=== PATIENT | female | born 1955 | race Caucasian/White ===

== ENCOUNTER → 2018-05-24 15:38 | Outpatient (CLI) | payer OTHER, SELFPAY ==
--- NOTE | 2018-05-24 09:30 | MISC_PTH ---
PATIENT: BRITTANY MANDUJANO LOC: [facility] U#:[id number] AGE/SX: 70/F ROOM: RE05/24/[address]: Dr. Lavelle Oropeza MD : [id number] BED: DIS: SPEC #: [id number] RECD: 05/24/18 15:35 STATUS: MAYNOR RAFIQ #: [id number] JOSESITO: 05/24/18 09:[address]: Lavelel Oropeza DEPT: SURGICAL PATHOLOGY RECD BY: Rickey Davey ENTERED: 05/25/18 07:41 SP TYPE: MISC OTHR DR: Dr. Suha Valle MD Tissues: Oral cavity, NOS Procedures: Surgery Specimen Level IV HEADER OPERATION: Incisional biopsy PRE-OP DIAGNOSIS: Evaluate for Crohn's TISSUE SUBMITTED: Oral mucositis, permanent pathology MICROSCOPIC DIAGNOSIS Oral mucosa, biopsy: Ulceration, granulation and associated acute and chronic inflammation. Negative for acid-fast bacilli and fungal organisms. AM:jimbo 05/28/18 COMMENT The biopsy contains a small fragment of benign squamous mucosa with reactive change with associated ulceration and granulation with acute and chronic inflammation. No granulomas are identified. No lymphoid aggregates are present. Clinical correlation is suggested. Case has been reviewed in consultation with Dr. Grijalva who concurs with the above diagnosis. IDC:AMOS MICROSCOPIC DESCRIPTION Slides are reviewed. GROSS DESCRIPTION Received in fixative is one container labeled with the patient's name and designated oral biopsy. The specimen consists of a piece of marcial mucosal tissue measuring 0.3 x 0.1 x 0.1 cm. The specimen is totally submitted in one cassette. / AMOS:jimbo 05/25/18 TC:2 CPT: 85665
== END ==
PROVIDERS: Family Provider Internal Medicine; PCP Internal Medicine; Referring Provider Otolaryngology; Visit Provider Otolaryngology
DX: K12.30 Oral mucositis (ulcerative), unspecified (principal)
CPT/HCPCS: 88305

== ENCOUNTER 2018-08-05 22:35 | Emergency (ER) | payer OTHER, SELFPAY ==
[2018-08-05 22:35] VITALS: BP 199/109; PULSE 97; RESP 16; TEMP 36.3; O2SAT 99; BMI 24.0
[2018-08-05] MEDS: Ondansetron 4 MG/2 ML Vial IV (23:04)
[2018-08-05] MEDS: Morphine 4 MG/ML Syringe IV (23:04)
[2018-08-05 23:24] LABS: Red Blood Cells-Urine 0 SEEN /hpf (0-5)
[2018-08-05 23:31] LABS: Color, Urine Yellow (Yellow); Glucose, Dipstick Normal (Normal); Ketone-Dipstick 5 mg/dl (Negative); Leukocyte Esterase-Dipstick Negative /ul (Negative); Nitrite-Dipstick Negative (Negative); Occult Blood-Urine Negative /ul (Negative); Protein-Dipstick Negative (Negative); Urine Bilirubin Dipstick Negative (Negative); Urine Clarity Clear (Clear); Urine Urobilinogen Normal (Normal); Urine pH 6.5 (5.0 - 8.0)
[2018-08-05 23:34] LABS: Absolute Lymphocyte Count 1.98 X10^3/ul (0.83-4.51); Absolute Neutrophil Count 10.1 X10^3/uL (2.0-7.7); Basophil# 0.04 X10^3/uL; Basophil% 0.3 % (0-1); Eosinophil# 0.11 X10^3/uL; Eosinophils% 0.8 % (0-5); Hematocrit 42.6 % (37-47); Hemoglobin 13.6 g/dl (12.0-15.0); Lymphocyte # 1.98 X10^3/ul (4.0); Lymphocyte % 14.4 % (19-41); Mean Corp Hgb Conc 31.9 g/gl (32-36); Mean Corpuscular Volume 90.8 fL (81-99); Mean Platelet Vol. 9.5 fl (6.2-12.0); Monocyte% 10.2 % (0-10); Neutrophil # 10.14 X10^3/uL (2.7-7.7); POSITIVE COUNT NO; POSITIVE DIFFERENTIAL NO; POSITIVE MORPHOLOGY NO; Platelet Count 396 K/mm3 (150-450); RBC Distribution Width SD 46.2 fl (35.1-43.9); Red Blood Count 4.69 M/mm3 (4.2-5.4); White Blood Count 13.7 K/mm3 (4.4-11.0)
[2018-08-05 23:39] LABS: Bacteria RARE /hpf (None Seen); Mucous, Urine 1+ /hpf (<or=2+); Squamous Epithelial Cells - UA 0-5 SEEN /hpf (5-10); White Blood Cells 0-5 SEEN /hpf (0-5)
[2018-08-05 23:41] LABS: Anion Gap 8 (5-15); BUN 9 mg/dL (7-18); BUN/Creat Ratio 12.4 RATIO (10-20); Calcium,Total 9.6 mg/dL (8.5-10.1); Chloride 101 mmol/L (98-107); Creatinine, Serum 0.72 mg/dL (0.55-1.02); EST Glomerular Filtration Rate 87 mL/min (>60); Est Glom Filt Rate - Afr Amer 105 mL/min (>60); Estimated Creatinine Clearance 58.19 ml/min; Glucose 131 mg/dL (74-106); Potassium 3.4 mmol/L (3.5-5.1); Sodium Level 135 mmol/L (136-145)
--- NOTE | 2018-08-06 01:27 | ED.VISSUMM ---
- ER Visit Summary Date of Service: 08/06/18 Chief Complaint: Abdominal pain History of Present Illness: The patient is a 63 F who presents with abdominal pain. It is been present for about 2 days. She states that severe. It is dull in character. It is located in the left lower quadrant. No history of prior similar symptoms. It was worse tonight than it has been over the last couple of days so she presented here. She does report some associated loose stools. No nausea or vomiting. No fevers. Physical Examination: Initial blood pressure 199/109 vitals of unremarkable Moist mucous membranes Heart regular rate and rhythm Lungs clear Abdomen soft nontender nondistended she actually states it feels a little bit better when I push on her left lower quadrant Test Results: Labs notable for white blood cell count 13.7 otherwise unremarkable. Urinalysis normal. CT of the abdomen and pelvis shows diverticulosis and postsurgical changes there is some wall thickening of the transverse colon and possible colitis. Emergency Department Course and Treatment: Patient was treated here with IV fluids morphine and Zofran. She is improved on reevaluation. Given her report of loose stools leukocytosis and wall thickening I do suspect this is related to infectious colitis and we will treat with Cipro and Flagyl. Given lack of fevers or vomiting and the fact that her pain is currently controlled I do believe she can treated as an outpatient. She understands to return for new or worsening symptoms. Patient discharged home. She is concerned about if her pain returned so she was given a prescription for short course of [place]. Treatment Plan: [] Disposition: Discharge Impression: Colitis This note was generated with [employer] dictation software. It may contain incorrect words, spelling, and punctuation that were not noted in review of the chart prior to signing ED Disposition - Plan for ED Patient: Chief Complaint: Abd Pain Referrals: Suha Valle MD [Primary Care Provider] -
--- NOTE | 2018-08-06 01:29 | ED.DEP ---
ED Disposition - Plan for ED Patient: Chief Complaint: Abd Pain Instructions: ED Gastroenteritis Bacterial Prescriptions: Hydrocodone Bitart/Apap 5-325 [[place] 5MG-325MG] 1 tab PO Q6H PRN PRN 3 Days #10 tab PRN Reason: Pain Metronidazole [Flagyl] 500 mg PO Q8H #21 tab Ciprofloxacin [Cipro] 500 mg PO BID #14 tab Referrals: Suha Valle MD [Primary Care Provider] -
[2018-08-06 01:37] VITALS: BP 180/101; PULSE 100; RESP 18; O2SAT 100
--- NOTE | 2018-08-06 22:51 | CT_ITS ---
STUDY: CT ABDOMEN AND PELVIS WITH CONTRAST REASON FOR EXAM: Female, 63 years old. Left lower quadrant pain. Lower back pain. Elevated white blood count. RADIATION DOSAGE (If Supplied By Facility): CTDIvol = ( 7.40 ) mGy, DLP = ( 387.21 ) mGycm TECHNIQUE: Transaxial images were obtained from the dome of the diaphragm to the symphysis pubis without oral contrast. 100ML ml of Isovue 300 contrast was administered. Sagittal and coronal images were reconstructed. Individualized dose optimization techniques were used for this CT. COMPARISON: None. FINDINGS: The visualized lung bases are unremarkable. The visualized portions of the heart are within normal limits. There is a hemangioma in segment #4 measures 2 cm. There is a cyst in segment #2 measures 1 cm. Normal gallbladder and extrahepatic biliary system. Normal spleen. Normal pancreas. Normal bilateral adrenal glands. Bilateral kidney stones are noted the largest measures 7 mm is in the left kidney. There is no hydronephrosis. Bilateral renal cysts are noted the largest measures 5 mm is in the right kidney. Normal visualized stomach. Normal small intestine. There are multiple colonic diverticula consistent with diverticulosis. Postsurgical changes are noted in the transverse colon. There is thickening of the samaniego of the transverse colon near the anastomosis site may represent colitis. There is non-visualization of the appendix. Normal abdominal aorta. Normal inferior vena cava. Normal retroperitoneum. Normal urinary bladder. There is a small anterior abdominal wall hernia superior to the umbilicus containing fat. There are advanced diffuse degenerative changes of the visualized lumbar spine with dextroscoliosis. There is an old compression fracture of T12. CT/Abdomen/Pelvis WITH Contrast IMPRESSION: Postsurgical changes are noted in the transverse colon. There is thickening of the samaniego of the transverse colon near the anastomosis site may represent colitis. Bilateral kidney stones are noted the largest measures 7 mm is in the left kidney. There is no hydronephrosis. Electronically Signed: Nirmala Tariq MD at 1:09 EST Tel , Service support ,
--- OUTSIDE RECORDS SUMMARY | 2018-11-07 14:10 | XMS RPT_ITS ---
:1955 Author Organization OHIP Care Team Providers Name Role Phone BRY RIOS D Referring Unavailable TALAMPAS, RIOS D Attending Unavailable TALAMPAS, RIOS D Attending Unavailable RUTTI, ZINA ([facility]) Attending Unavailable PODLOGARTRINA ([facility]) Attending Unavailable TALAMPAS, RIOS D Referring Unavailable OLDER, JOSIE (COMMERCIAL ESTIMATOR) Attending Unavailable TODDDARIEL SANTACRUZ (COMMERCIAL ESTIMATOR) Attending Unavailable TALAMPAS, RIOS D Attending Unavailable RUTTIHUAZINA (COMMERCIAL ESTIMATOR) Attending Unavailable RUTMATHIEU, ZINA (COMMERCIAL ESTIMATOR) Referring Unavailable TALAMPAS, RIOS D Referring Unavailable RUTTI, ZINA (COMMERCIAL ESTIMATOR) Referring Unavailable RUTTI, ZINA (COMMERCIAL ESTIMATOR) Referring Unavailable TALAMPAS, RIOS D Attending Unavailable ELIAZAR MARK ([facility]) Attending Unavailable TALAMPAS, RIOS D Referring Unavailable Talampas, Rios Primary Care Unavailable Thai Mcnair Attending Unavailable Lavelle Oropeza Attending Unavailable Lavelle Oropeza Referring Unavailable Talampas, Rios Primary Care Unavailable PROBLEMS PROBLEMS DATE TYPE CONDITION / CODE ATTENDING STATUS SOURCE 09/05/2018 Active Unknown / NA Active [facility] UNK(Unknown) [facility] [place] Repository 08/06/2018 Unknown K52.9 - Noninfective Thai Mcnair Active [place] [facility] colitis, unspecified Hospital / K52.9(ICD-10) Repository 06/19/2018 Active Iron deficiency / NA Active [facility] E61.1(ICD-10) [facility] [place] Repository 05/21/2018 Active Abnormal levels of NA Active [facility] other serum enzymes / [facility] Main R74.8(ICD-10) [place] Repository 05/16/2018 Active Encounter for NA Active [facility] screening mammogram [facility] for malignant [place] neoplasm of breast / Repository Z12.31(ICD-10) 05/03/2018 Active Recurrent oral NA Active [facility] aphthae / Clinic Main K12.0(ICD-10) [place] Repository 10/12/2017 Active Iron deficiency NA Active [facility] anemia, unspecified / Clinic Main D50.9(ICD-10) [place] Repository 10/12/2017 Active Other group home NA Active [facility] (current) drug Clinic Main therapy / [place] Z79.899(ICD-10) Repository PROCEDURES PROCEDURES No Procedure Records FoundRESULTS RESULTS PROGRESS Observed: 09/05/2018 Status: COMPLETED Source: [place] 3:31 PM [facility] REPOSITORY HNO ID: [id number] Author: Cony Beltran LPN Service: (none) Author Type: (none) Type: Progress Notes Filed: 09/05/2018 3:48 PM Note Text: Manual Readin/88 Pulse: 74 BP Eric average: 132/75 P :77 Repeat BP Check: 143/80 P76 #1 129/79 P76 #2 134/73 P76 #3 130/74 P77 #4 134/76 P77 #5 131/75 P78 #6 Reason for blood pressure check - Medication adjustment Patient is: Taking medication as prescribed Yes Took medication today Yes If no, date medication last taken N/A Experiencing side effects No Per TE on 08/20/2018, Lisinopril was d/c at that time and she was placed on Coreg 3.125mg twice daily d/t mouth sores. States that sores have not improved. Does have appt with Dermatology 09/12/2018. Denies any chest pain, shortness of breath, dizziness, or headaches. Daily caffeine use. Past personal history of tobacco use; no current exposure. Alert and oriented. Pt has been identified by name and birthdate: Yes Allergies reviewed: Yes Latex allergy: no. Medication - prescribed and OTC reviewed and updated: Yes Do you need any prescription refills prior to your next visit: No Health Maintenance: Reviewed and not up to date and provider notified Patient advised to continue with current medications and would be contacted with any further instructions after review by PCP. Cony Beltran LPN CNNURSE Observed: 09/05/2018 Status: COMPLETED Source: [place] 3:30 PM [facility] REPOSITORY Nurse Visit (FAMPWS) DEE MCALLISTER ([id number]) 1955 F Date Time Provider Department 09/05/18 3:30 PM [facility] [facility] During your visit today, we recorded the following information about you: Pulse Blood pressure 77/minute 132/75 Cony Beltran LPN 09/05/2018 3:48 PM Signed Manual Readin/88 Pulse: 74 BP Eric average: 132/75 P :77 Repeat BP Check: 143/80 P76 #1 129/79 P76 #2 134/73 P76 #3 130/74 P77 #4 134/76 P77 #5 131/75 P78 #6 Reason for blood pressure check - Medication adjustment Patient is: Taking medication as prescribed Yes Took medication today Yes If no, date medication last taken N/A Experiencing side effects No Per TE on 08/20/2018, Lisinopril was d/c at that time and she was placed on Coreg 3.125mg twice daily d/t mouth sores. States that sores have not improved. Does have appt with Dermatology 09/12/2018. Denies any chest pain, shortness of breath, dizziness, or headaches. Daily caffeine use. Past personal history of tobacco use; no current exposure. Alert and oriented. Pt has been identified by name and birthdate: Yes Allergies reviewed: Yes Latex allergy: no. Medication - prescribed and OTC reviewed and updated: Yes Do you need any prescription refills prior to your next visit: No Health Maintenance: Reviewed and not up to date and provider notified Patient advised to continue with current medications and would be contacted with any further instructions after review by PCP. Cony Beltran LPN Referring Provider: RIOS VALLE [[id number]] Allergies As of Date: 09/05/2018 (No Known Allergies) Date Reviewed: 08/07/2018 Reviewed by: Abbey Bryson LPN - Fully Assessed Reason for Visit: Blood Pressure Check [195] Primary Visit Diagnosis:Essential hypertension [I10] Prescriptions as of 09/05/2018 Sig: CARVEDILOL 3.125 MG TABLET Take 1 tablet by mouth twice * LISINOPRIL 5 MG TABLET Take 1.5 tablets by mouth onc* CIPROFLOXACIN 500 MG TABLET TWICE A DAY METRONIDAZOLE 500 MG TABLET Q8H HYDROCODONE 10 MG-ACETAMINOPH* Take 0.5-1 tablets by mouth e* ALPRAZOLAM 0.25 MG TABLET Take 1 tablet by mouth once d* HYDROCODONE 10 MG-ACETAMINOPH* Take 0.5-1 tablets by mouth e* HYDROCODONE 10 MG-ACETAMINOPH* Take 0.5-1 tablets by mouth e* FERROUS SULFATE 325 MG (65 MG* Take 1 tablet by mouth daily * CLOBETASOL 0.05 % TOPICAL OIN* Apply to affected area twice* MUPIROCIN 2 % TOPICAL OINTMENT Apply 1 application to affect* LOXAPINE SUCCINATE 5 MG CAPSU* Take 1 capsule by mouth twice* HYDROCODONE 10 MG-ACETAMINOPH* Take 0.5-1 tablets by mouth e* HYDROCODONE 10 MG-ACETAMINOPH* Take 0.5-1 tablets by mouth e* HYDROCODONE 10 MG-ACETAMINOPH* Take 0.5-1 tablets by mouth e* MULTIVITAMIN TABLET Take 1 tablet by mouth once d* HYDROCODONE 10 MG-ACETAMINOPH* Take 0.5-1 tablets by mouth e* HYDROCODONE 10 MG-ACETAMINOPH* Take 0.5-1 tablets by mouth e* CLOBETASOL 0.05 % SCALP SOLUT* apply as directed once daily * LIDOCAINE 5 % TOPICAL PATCH Apply 1 Patch topically as di* GABAPENTIN 300 MG CAPSULE Take 1 capsule by mouth three* ESTRADIOL 1 MG TABLET Take 1 tablet by mouth once d* OMEPRAZOLE 40 MG CAPSULE,BITA* Take 1 capsule by mouth once * HYDROCODONE 10 MG-ACETAMINOPH* Take 0.5-1 tablets by mouth e* METAXALONE 800 MG TABLET Take 0.5-1 tablets by mouth t* FLUTICASONE 50 MCG/ACTUATION * Use 2 Sprays in each nostril * ASPIRIN 325 MG TABLET Take one(1) tablet daily. Problem List As Of Date 09/05/2018 Noted Resolved PSORIAS RELATED DIS NEC [L40.8] More... ALLERGIC RHINITIS NOS [J30.9] More... Generalized OA [M15.9] Degeneration of lumbar or lumbosacral intervert* Dyslipidemia (high LDL; low HDL) [E78.5] OSTEOPOROSIS NOS [M81.0] IRRITABLE COLON [K58.9] GENERALIZED ANXIETY DIS [F41.1] DEPRESSIVE DISORDER NEC [F32.9] Essential hypertension [I10] More... 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] INVALID FOR* ULCER OF HEEL/PLANTAR MIDFOOT [L97.409] INVALID FOR* ULCER OF OTHER PART FOOT - TOES [L97.509] INVALID FOR* CELLULITIS OF FOOT [L03.119, L02.619] INVALID FOR* Vitamin D Deficiency [E55.9] INVALID FOR* Multiple thyroid nodules [E04.2] INVALID FOR* Right knee pain [M25.561] INVALID FOR* Stenosis of right carotid artery [I65.21] INVALID FOR* Left lower quadrant pain [R10.32] INVALID FOR* Encounter Status:Closed by CONY BELTRAN LPN on 09/05/18 PROGRESS Observed: 08/07/2018 Status: COMPLETED Source: [place] 3:20 PM CLINIC MAIN [place] REPOSITORY O ID: [id number] Author: Eliazar Mrak ([facility]) Service: (none) Author Type: Nurse Specialist Type: Progress Notes Filed: 08/07/2018 4:27 PM Note Text: This note was created using NoteWriter. Subjective Dee Mcallister is a 63 year old presents for [facility] ER follow-up of August 06, 2018 for colitis. She called the office earlier today with report of abdominal pain and question as to what type of diet she should be eating. Review of outside records reveals she presented to [facility] on August 06, 2018 with abdominal pain present for 2 days prior to arrival and described as severe and dull in character in the lower left quadrant. No prior occurrence. It had worsened prior to arrival so she presented to the ER. She reported associated loose stools. No nausea or vomiting. No fever. Exam revealed elevated blood pressure 199/109 abdomen not distended or tender on palpation. Lab tests showed elevated white blood cell count. Urinalysis was normal. A CT of the abdomen and pelvis was completed and revealed diverticulosis postsurgical changes with small thickening of the transverse colon and possible colitis. She was treated with IV fluids, morphine, Zofran. She is improved on a reevaluation. Wall thickening seen on CT was concerning for infectious colitis as she was treated with Cipro and Flagyl. Due to lack of fever or vomiting and control pain she was discharged to be followed up as outpatient, discharged home. Provided with short course of Annabella for abdominal pain if it was to recur. Impression colitis. Review of Systems Constitutional: Positive for appetite change. Negative for activity change, chills, diaphoresis, fatigue and fever. Respiratory: Negative for cough, choking, chest tightness, shortness of breath, wheezing and stridor. Cardiovascular: Negative for chest pain, palpitations and leg swelling. Gastrointestinal: Positive for abdominal pain (left lower quadrant), diarrhea and nausea. Negative for constipation and vomiting. Skin: Negative for color change, rash and wound. All other systems reviewed and are negative. Objective BP 140/90 (BP Site: Left Arm, BP Position: Sitting, BP Cuff Size: Regular Adult) Pulse 92 Resp 16 Wt 56.2 kg (124 lb) BMI 25.04 kg/m? Physical Exam Constitutional: She is oriented to person, place, and time. She appears well-developed and well-nourished. HENT: Head: Normocephalic. Eyes: Conjunctivae are normal. Cardiovascular: Normal rate, regular rhythm and normal heart sounds. Exam reveals no gallop and no friction rub. No murmur heard. Pulmonary/Chest: Effort normal and breath sounds normal. No respiratory distress. She has no wheezes. She has no rales. She exhibits no tenderness. Abdominal: Soft. Bowel sounds are normal. She exhibits no mass. There is tenderness (left lower quadrant). There is no rebound and no guarding. Neurological: She is alert and oriented to person, place, and time. Skin: Skin is warm and dry. Psychiatric: She has a normal mood and affect. Her behavior is normal. Vitals reviewed. ALLERGIES No Known Allergies HISTORIES FAMILY HISTORY Problem Relation Age of Onset - Ischemic Heart Disease Father - other (Prediabetic) Mother 86 HGA1C 5.5; fingerstick glucose 122 in am noted - Cancer Brother throat cancer; metastasized to lymph nodes PAST MEDICAL HISTORY Diagnosis Date - Allergic rhinitis, cause unspecified Allergic rhinitis - Degeneration of intervertebral disc, site unspecified - Depressive disorder, not elsewhere classified - Generalized anxiety disorder - Generalized osteoarthrosis, unspecified site - Irritable bowel syndrome - Osteoporosis, unspecified - Other psoriasis and similar disorders Psoriasis - 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)--needs IFOBT yearly but colonoscopy okay 10 years - Pure hypercholesterolemia - 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 suspected by abscence of pulse and not filling on Steve's test - Unspecified essential hypertension - Vitamin D Deficiency 05/11/2010 PAST SURGICAL HISTORY Procedure Laterality Date - COLONOSCOP W/ OR W/O BRSH SPEC 05/17/07 - FNA WITH IMAGING 01/09/13 U/S FNA bilateral thyroid nodules - LAPAROSCOPIC HEMICOLECTOMY 07/02/07 TRANSVERSE - PAST SURGICAL HISTORY OF 12/24/08 Angioplasty - REMOVAL OF TONSILS,<13 Y/O age 21 Tonsillectomy alone - TOTAL ABDOM HYSTERECTOMY 09/07/1995 Hysterectomy, DRAKE, BSO, appendectomy for benign reason Social History Marital status: Spouse name: Years of education: Number of children: 3 Occupational History Occupation Employer Comment [employer] Social History Main Topics Smoking status: Former Smoker Packs/day: 0.00 Years: 0.00 Quit date: 11/04/2006 Smokeless tobacco: Never Used Alcohol use: Yes Comment: rarely Drug use: No Social History Narrative 11/10/16--son Assessment and Plan 1. Colitis - ICD9: 558.9, ICD10: K52.9 (primary diagnosis) Continue with fluids primarily for the next day or 2, add mild foods to diet as tolerated Feeling improved with treatment with ciprofloxacin and metronidazole Currently afebrile Abdominal pain is decreased Provided with written information regarding diverticulitis for reference - CIPROFLOXACIN 500 MG TABLET - METRONIDAZOLE 500 MG TABLET 2. Essential hypertension - ICD9: 401.9, ICD10: I10 Blood pressure was elevated in the emergency department, still slightly elevated in office. Currently taking 1-1/2 lisinopril daily - 7.5 mg. Blood pressure may be elevated due to current illness. Return to 5 mg daily if blood pressure running low or feeling dizzy and lightheaded or fatigue. - LISINOPRIL 5 MG TABLET Request note for off work today, provided. Recommend she return to clinic if not continuing to feel improved, back to baseline. Eliazar Mark APRN.ATTENDANCE CLERK CNOV Observed: 08/07/2018 Status: COMPLETED Source: [place] 3:20 PM [facility] REPOSITORY Office Visit (INTMWS) DEE MCALLISTER ([id number]) 1955 F Date Time Provider Department 08/07/18 3:20 PM ELIAZAR MARK (ATTENDANCE CLERK) INTMWS During your visit today, we recorded the following information about you: Pulse Respiration Blood pressure Weight 92/minute 16/minute 140/90 56.2 kg Eliazar Mark APRN.ATTENDANCE CLERK 08/07/2018 4:27 PM Signed This note was created using Naytevriter. Subjective Dee Mcallister is a 63 year old presents for [facility] ER follow-up of August 06, 2018 for colitis. She called the office earlier today with report of abdominal pain and question as to what type of diet she should be eating. Review of outside records reveals she presented to [facility] on August 06, 2018 with abdominal pain present for 2 days prior to arrival and described as severe and dull in character in the lower left quadrant. No prior occurrence. It had worsened prior to arrival so she presented to the ER. She reported associated loose stools. No nausea or vomiting. No fever. Exam revealed elevated blood pressure 199/109 abdomen not distended or tender on palpation. Lab tests showed elevated white blood cell count. Urinalysis was normal. A CT of the abdomen and pelvis was completed and revealed diverticulosis postsurgical changes with small thickening of the transverse colon and possible colitis. She was treated with IV fluids, morphine, Zofran. She is improved on a reevaluation. Wall thickening seen on CT was concerning for infectious colitis as she was treated with Cipro and Flagyl. Due to lack of fever or vomiting and control pain she was discharged to be followed up as outpatient, discharged home. Provided with short course of Annabella for abdominal pain if it was to recur. Impression colitis. Review of Systems Constitutional: Positive for appetite change. Negative for activity change, chills, diaphoresis, fatigue and fever. Respiratory: Negative for cough, choking, chest tightness, shortness of breath, wheezing and stridor. Cardiovascular: Negative for chest pain, palpitations and leg swelling. Gastrointestinal: Positive for abdominal pain (left lower quadrant), diarrhea and nausea. Negative for constipation and vomiting. Skin: Negative for color change, rash and wound. All other systems reviewed and are negative. Objective BP 140/90 (BP Site: Left Arm, BP Position: Sitting, BP Cuff Size: Regular Adult) Pulse 92 Resp 16 Wt 56.2 kg (124 lb) BMI 25.04 kg/m? Physical Exam Constitutional: She is oriented to person, place, and time. She appears well-developed and well-nourished. HENT: Head: Normocephalic. Eyes: Conjunctivae are normal. Cardiovascular: Normal rate, regular rhythm and normal heart sounds. Exam reveals no gallop and no friction rub. No murmur heard. Pulmonary/Chest: Effort normal and breath sounds normal. No respiratory distress. She has no wheezes. She has no rales. She exhibits no tenderness. Abdominal: Soft. Bowel sounds are normal. She exhibits no mass. There is tenderness (left lower quadrant). There is no rebound and no guarding. Neurological: She is alert and oriented to person, place, and time. Skin: Skin is warm and dry. Psychiatric: She has a normal mood and affect. Her behavior is normal. Vitals reviewed. ALLERGIES No Known Allergies HISTORIES FAMILY HISTORY Problem Relation Age of Onset - Ischemic Heart Disease Father - other (Prediabetic) Mother 86 HGA1C 5.5; fingerstick glucose 122 in am noted - Cancer Brother throat cancer; metastasized to lymph nodes PAST MEDICAL HISTORY Diagnosis Date - Allergic rhinitis, cause unspecified Allergic rhinitis - Degeneration of intervertebral disc, site unspecified - Depressive disorder, not elsewhere classified - Generalized anxiety disorder - Generalized osteoarthrosis, unspecified site - Irritable bowel syndrome - Osteoporosis, unspecified - Other psoriasis and similar disorders Psoriasis - 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)--needs IFOBT yearly but colonoscopy okay 10 years - Pure hypercholesterolemia - 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 suspected by abscence of pulse and not filling on Steve's test - Unspecified essential hypertension - Vitamin D Deficiency 05/11/2010 PAST SURGICAL HISTORY Procedure Laterality Date - COLONOSCOP W/ OR W/O BRSH SPEC 05/17/07 - FNA WITH IMAGING 01/09/13 U/S FNA bilateral thyroid nodules - LAPAROSCOPIC HEMICOLECTOMY 07/02/07 TRANSVERSE - PAST SURGICAL HISTORY OF 12/24/08 Angioplasty - REMOVAL OF TONSILS,<13 Y/O age 21 Tonsillectomy alone - TOTAL ABDOM HYSTERECTOMY 09/07/1995 Hysterectomy, DRAKE, BSO, appendectomy for benign reason Social History Marital status: Spouse name: Years of education: Number of children: 3 Occupational History Occupation Employer Comment [employer] Social History Main Topics Smoking status: Former Smoker Packs/day: 0.00 Years: 0.00 Quit date: 11/04/2006 Smokeless tobacco: Never Used Alcohol use: Yes Comment: rarely Drug use: No Social History Narrative 11/10/16--son Assessment and Plan 1. Colitis - ICD9: 558.9, ICD10: K52.9 (primary diagnosis) Continue with fluids primarily for the next day or 2, add mild foods to diet as tolerated Feeling improved with treatment with ciprofloxacin and metronidazole Currently afebrile Abdominal pain is decreased Provided with written information regarding diverticulitis for reference - CIPROFLOXACIN 500 MG TABLET - METRONIDAZOLE 500 MG TABLET 2. Essential hypertension - ICD9: 401.9, ICD10: I10 Blood pressure was elevated in the emergency department, still slightly elevated in office. Currently taking 1-1/2 lisinopril daily - 7.5 mg. Blood pressure may be elevated due to current illness. Return to 5 mg daily if blood pressure running low or feeling dizzy and lightheaded or fatigue. - LISINOPRIL 5 MG TABLET Request note for off work today, provided. Recommend she return to clinic if not continuing to feel improved, back to baseline. Eliazar Mark APRN.ATTENDANCE CLERK Referring Provider: SELF [[id number]] Allergies As of Date: 08/07/2018 (No Known Allergies) Date Reviewed: 08/07/2018 Reviewed by: Abbey Hotte [employer] - Fully Assessed Reason for Visit: Hospital F/U [57] Primary Visit Diagnosis:Colitis [K52.9] Other Visit Diagnosis:Essential hypertension [I10] Order(s):lisinopril (PRINIVIL) 5 mg tabletTake 1.5 tablets by mouth once daily.Disp: 90 tabletRfl: 3 Prescriptions as of 08/07/2018 Sig: ALPRAZOLAM 0.25 MG TABLET Take 1 tablet by mouth once d* ASPIRIN 325 MG TABLET Take one(1) tablet daily. CIPROFLOXACIN 500 MG TABLET TWICE A DAY CLOBETASOL 0.05 % TOPICAL OIN* Apply to affected area twice* CLOBETASOL 0.05 % SCALP SOLUT* apply as directed once daily * ESTRADIOL 1 MG TABLET Take 1 tablet by mouth once d* FERROUS SULFATE 325 MG (65 MG* Take 1 tablet by mouth daily * FLUTICASONE 50 MCG/ACTUATION * Use 2 Sprays in each nostril * GABAPENTIN 300 MG CAPSULE Take 1 capsule by mouth three* HYDROCODONE 10 MG-ACETAMINOPH* Take 0.5-1 tablets by mouth e* HYDROCODONE 10 MG-ACETAMINOPH* Take 0.5-1 tablets by mouth e* HYDROCODONE 10 MG-ACETAMINOPH* Take 0.5-1 tablets by mouth e* LIDOCAINE 5 % TOPICAL PATCH Apply 1 Patch topically as di* LISINOPRIL 5 MG TABLET Take 1.5 tablets by mouth onc* LOXAPINE SUCCINATE 5 MG CAPSU* Take 1 capsule by mouth twice* METAXALONE 800 MG TABLET Take 0.5-1 tablets by mouth t* METRONIDAZOLE 500 MG TABLET Q8H MULTIVITAMIN TABLET Take 1 tablet by mouth once d* MUPIROCIN 2 % TOPICAL OINTMENT Apply 1 application to affect* OMEPRAZOLE 40 MG CAPSULE,BITA* Take 1 capsule by mouth once * HYDROCODONE 10 MG-ACETAMINOPH* Take 0.5-1 tablets by mouth e* HYDROCODONE 10 MG-ACETAMINOPH* Take 0.5-1 tablets by mouth e* HYDROCODONE 10 MG-ACETAMINOPH* Take 0.5-1 tablets by mouth e* HYDROCODONE 10 MG-ACETAMINOPH* Take 0.5-1 tablets by mouth e* HYDROCODONE 10 MG-ACETAMINOPH* Take 0.5-1 tablets by mouth e* HYDROCODONE 10 MG-ACETAMINOPH* Take 0.5-1 tablets by mouth e* Problem List As Of Date 08/07/2018 Noted Resolved PSORIAS RELATED DIS NEC [L40.8] More... ALLERGIC RHINITIS NOS [J30.9] More... Generalized OA [M15.9] Degeneration of lumbar or lumbosacral intervert* Dyslipidemia (high LDL; low HDL) [E78.5] OSTEOPOROSIS NOS [M81.0] IRRITABLE COLON [K58.9] GENERALIZED ANXIETY DIS [F41.1] DEPRESSIVE DISORDER NEC [F32.9] Essential hypertension [I10] More... 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 Medications Discontinued During This Encounter lisinopril (PRINIVIL) 5 mg tablet 90 t* 3 10/24/2017 08/07/2018 Route: ORAL Sig: Take 1 tablet by mouth once daily. Disc: Adjust Sig - Block E-Cancel Letter Text Department of Internal Medicine [address], [place] [address] 08/07/2018 Dee Mcallister [facility]# [id number] [facility] [id number] TO WHOM IT MAY CONCERN: This is to certify that Ms. Dee Mcallister has been under my care for illness and was unable to work August 07, 2018. Sincerely yours, Eliazar Mark APRN.DAWNA Encounter Status:Closed by ELIAZAR BOWEN on 08/07/18 DISCHARGE INSTRUCTION Observed: 08/06/2018 Status: F Source: [place] 1:31 AM [facility] REPOSITORY [facility] Medical Records Department [address] [place] [address] Discharge Instruction 08/06/189 MR#: [id number] Acct: [id number] Name: CORNELIA MCALLISTERAdry Mirza Rep #: [id number] : 1955 63 From: Thai Mcnair MD PCP: Rios Valle MD Status: REG ER ED Disposition - Plan for ED Patient: Chief Complaint: Abd Pain Instructions: ED Gastroenteritis Bacterial Prescriptions: Hydrocodone Bitart/Apap 5-325 [Annabella 5MG-325MG] 1 tab PO Q6H PRN PRN 3 Days #10 tab PRN Reason: Pain Metronidazole [Flagyl] 500 mg PO Q8H #21 tab Ciprofloxacin [Cipro] 500 mg PO BID #14 tab Referrals: Rios Valle MD [Primary Care Provider] - What to do if you have Problems For any increased pain, shortness of breath, bleeding, nausea or vomiting, chest pain, or any unexpected problems, contact your Primary Care Provider. Call [facility] ([phone]) or report to the closest Emergency Room. Call 911 if necessary. 08/06/18 0131 <Electronically signed by Thai Mcnair MD> Date Thai Mcnair MD Cosigner Signature (If Indicated): Date CC: Rios Valle MD EMERGENCY DEPARTMENT Observed: 08/06/2018 Status: F Source: AG SUMMARY 1:29 AM [facility] REPOSITORY [facility] Medical Records Department [address] [place] [address] Emergency Department Summary 08/06/18 012 MR#: [id number] Acct: [id number] Name: DEE MCALLISTER Rep #: [id number] : 1955 63 From: Thai Mcnair MD PCP: Rios Valle MD Status: REG ER - ER Visit Summary Date of Service: 08/06/18 Chief Complaint: Abdominal pain History of Present Illness: The patient is a 63 F who presents with abdominal pain. It is been present for about 2 days. She states that severe. It is dull in character. It is located in the left lower quadrant. No history of prior similar symptoms. It was worse tonight than it has been over the last couple of days so she presented here. She does report some associated loose stools. No nausea or vomiting. No fevers. Physical Examination: Initial blood pressure 199/109 vitals of unremarkable Moist mucous membranes Heart regular rate and rhythm Lungs clear Abdomen soft nontender nondistended she actually states it feels a little bit better when I push on her left lower quadrant Test Results: Labs notable for white blood cell count 13.7 otherwise unremarkable. Urinalysis normal. CT of the abdomen and pelvis shows diverticulosis and postsurgical changes there is some wall thickening of the transverse colon and possible colitis. Emergency Department Course and Treatment: Patient was treated here with IV fluids morphine and Zofran. She is improved on reevaluation. Given her report of loose stools leukocytosis and wall thickening I do suspect this is related to infectious colitis and we will treat with Cipro and Flagyl. Given lack of fevers or vomiting and the fact that her pain is currently controlled I do believe she can treated as an outpatient. She understands to return for new or worsening symptoms. Patient discharged home. She is concerned about if her pain returned so she was given a prescription for short course of Annabella. Treatment Plan: [] Disposition: Discharge Impression: Colitis This note was generated with [employer] dictation software. It may contain incorrect words, spelling, and punctuation that were not noted in review of the chart prior to signing ED Disposition - Plan for ED Patient: Chief Complaint: Abd Pain Referrals: Rios Valle MD [Primary Care Provider] - What to do if you have Problems For any increased pain, shortness of breath, bleeding, nausea or vomiting, chest pain, or any unexpected problems, contact your Primary Care Provider. Call [facility] ([phone]) or report to the closest Emergency Room. Call 911 if necessary. 08/06/18 0129 <Electronically signed by Thai Mcnair MD> Date Thai Mcnair MD Cosigner Signature (If Indicated): Date CC: Rios Valle MD URINALYSIS, COMPLETE Collected: 08/05/2018 Status: F Source: [place] 11:20 PM [facility] REPOSITORY Order Comment: Order Date: 08/05/18 How was Urine Obtained? CLEAN CATCH TYPE CODE TESTS RESULT OUT OF RANGE REFERENCE UNITS LAB L400.3000 Yellow COLOR Normal Yellow LAB L400.3050 Clear Normal CLARITY Clear LAB L400.3200 Normal mg/dl Normal GLUCOSE, UR Normal LAB L400.3300 Negative mg/dL Normal BILIRUBIN URINE Negative LAB L400.3400 Negative mg/dl High 5 KETONE UR LAB L400.3465 1.002-1.030 Normal SP.GR. DIPSTX 1.010 LAB L400.3550 5.0 - 8.0 pH UR Normal 6.5 LAB L400.3600 Negative mg/dl PROT Normal DIPSTX Negative LAB L400.3700 Normal mg/dl Normal UROBILI Normal LAB L400.3750 Negative Normal NITRITE UR Negative LAB L400.3780 Negative /ul Normal OCCULT BLOOD-UR Negative LAB L400.3800 Negative /ul LEUK Normal ESTERASE Negative LAB L400.4050 0-5 /hpf WBC Normal 0-5 SEEN LAB L400.4100 0-5 /hpf 0 Normal RBC-UA SEEN LAB L400.4150 5-10 /hpf SQUAM Normal EPI 0-5 SEEN LAB L400.4300 None Seen /hpf Normal BACTERIA RARE LAB L400.4350 <or=2+ /hpf 1+ Normal MUCUS, URINE Performed By: #### L400.0001 #### [facility] [address] [place], [place], [id number] CBC W/DIFF, AUTOMATED Collected: 08/05/2018 Status: F Source: AG 11:07 PM [facility] REPOSITORY TYPE CODE TESTS RESULT OUT OF RANGE REFERENCE UNITS LAB L100.1000 4.4-11.0 K/mm3 High WBC 13.7 LAB L100.1200 4.2-5.4 M/mm3 Normal RBC 4.69 LAB L100.1300 12.0-15.0 g/dl Normal HGB 13.6 LAB L100.1400 37-47 % Normal HCT 42.6 LAB L100.1500 81-99 fL Normal MCV 90.8 LAB L100.1600 27.0-32.0 pg Normal MCH 29.0 LAB L100.1700 32-36 g/gl Low MCHC 31.9 LAB L100.1810 11.6-14.6 % Normal RDW CV 14.0 LAB L100.1820 35.1-43.9 fl High RDW SD 46.2 LAB L100.1900 150-450 K/mm3 Normal PLT 396 LAB L100.2000 6.2-12.0 fl Normal MPV 9.5 LAB L100.2100 47-70 % High NEUT% 74.0 LAB L100.2200 19-41 % Low LY% 14.4 LAB L100.2300 0-10 % High MONO% 10.2 LAB L100.2400 0-5 % Normal EO% 0.8 LAB L100.2500 0-1 % Normal BASO% 0.3 LAB L100.2550 0.0-0.9 % Normal IM GRAN % 0.300 Result Comment: IG% - Immature Granulocytes (promyelocytes, myelocytes and metamyelocytes) > 1% indicates that a LEFT SHIFT is Present. LAB L100.2620 2.0-7.7 X10 3/uL High Absolute Neut 10.1 LAB L100.2720 0.83-4.51 X10 3/ul Normal Absolute Lymph 1.98 Performed By: #### L100.0100 #### [facility] [place], [address] BASIC METABOLIC Collected: 08/05/2018 Status: F Source: AG PROFILE (BMP) 11:07 PM [facility] REPOSITORY TYPE CODE TESTS RESULT OUT OF RANGE REFERENCE UNITS LAB L501.0100 74-106 mg/dL High GLU 131 Result Comment: Fasting Glucose result greater than or equal to 126 mg/dL suggests DIABETES MELLITUS per A.D.A. criteria. Please note revised GLUCOSE reference range effective 2017. LAB L501.1000 7-18 mg/dL Normal BUN 9 LAB L501.1100 0.55-1.02 mg/dL Normal CREAT,SERUM 0.72 Result Comment: The validity of the calculated GFR AND GFRAA in patients over 70 years has not been determined. Clinical correlation is essential. LAB L501.1110 >60 mL/min Normal EST GFR 87 Result Comment: Non- GFR Calc LAB L501.1115 >60 mL/min Normal EST GFR - AA 105 Result Comment: GFR Calc LAB L501.1255 ml/min Normal Estimated CRCL 58.19 LAB L501.1300 10-20 RATIO Normal BUN/CRE 12.4 LAB L501.2200 8.5-10 mg/dL Normal .1 CA 9.6 LAB L501.5300 136-14 mmol/L Low 5 NA 135 LAB L501.5600 3.5-5. mmol/L Low 1 K 3.4 LAB L501.5900 98-107 mmol/L Normal CL 101 LAB L501.6100 21.0-3 mmol/L Normal 2.0 CO2 26.0 LAB L501.6200 5-15 Normal GAP 8 Performed By: #### L500.2500 #### [facility] [address] [place], [address] ABDOMEN/PELVIS WITH Observed: 08/05/2018 Status: F Source: [place] CONTRAST 10:52 PM [facility] REPOSITORY [facility] Imaging Services [address] [place] [address] Abdomen/Pelvis WITH Contrast MR#: [id number] Acct: [id number] Name: ESVINDEE Yuki Rep #: [id number] : 1955 F 63 From: Nirmala Tariq MD PCP: Rios Valle MD Status: REG ER Study: Abdomen/Pelvis WITH Contrast Date of Exam: 08/06/18 Exam# [id number] Ordering Dr: Thai Mcnair MD STUDY: CT ABDOMEN AND PELVIS WITH CONTRAST REASON FOR EXAM: Female, 63 years old. Left lower quadrant pain. Lower back pain. Elevated white blood count. RADIATION DOSAGE (If Supplied By Facility): CTDIvol = ( 7.40 ) mGy, DLP = ( 387.21 ) mGycm TECHNIQUE: Transaxial images were obtained from the dome of the diaphragm to the symphysis pubis without oral contrast. 100ML ml of Isovue 300 contrast was administered. Sagittal and coronal images were reconstructed. Individualized dose optimization techniques were used for this CT. COMPARISON: None. FINDINGS: The visualized lung bases are unremarkable. The visualized portions of the heart are within normal limits. There is a hemangioma in segment #4 measures 2 cm. There is a cyst in segment #2 measures 1 cm. Normal gallbladder and extrahepatic biliary system. Normal spleen. Normal pancreas. Normal bilateral adrenal glands. Bilateral kidney stones are noted the largest measures 7 mm is in the left kidney. There is no hydronephrosis. Bilateral renal cysts are noted the largest measures 5 mm is in the right kidney. Normal visualized stomach. Normal small intestine. There are multiple colonic diverticula consistent with diverticulosis. Postsurgical changes are noted in the transverse colon. There is thickening of the samaniego of the transverse colon near the anastomosis site may represent colitis. There is non-visualization of the appendix. Normal abdominal aorta. Normal inferior vena cava. Normal retroperitoneum. Normal urinary bladder. There is a small anterior abdominal wall hernia superior to the umbilicus containing fat. There are advanced diffuse degenerative changes of the visualized lumbar spine with dextroscoliosis. There is an old compression fracture of T12. CT/Abdomen/Pelvis WITH Contrast IMPRESSION: Postsurgical changes are noted in the transverse colon. There is thickening of the samaniego of the transverse colon near the anastomosis site may represent colitis. Bilateral kidney stones are noted the largest measures 7 mm is in the left kidney. There is no hydronephrosis. Electronically Signed: Nirmala Tariq MD at 1:09 EST Tel , Service support , CC: Thai Mcnair MD; Rios Valle MD [employer] Former: Signed PROGRESS Observed: 07/24/2018 Status: COMPLETED Source: [place] 5:59 PM [facility] REPOSITORY HNO ID: [id number] Author: Rios Valle Service: (none) Author Type: Physician Type: Progress Notes Filed: 08/10/2018 12:09 AM Note Text: Patient presents with: Recheck: Follow up SUBJECTIVE: Dee Mcallister is a 63 year old year old lady here today for 3 month follow up appointment for review of medical conditions. Getting over sinobronchitis symptoms. Meds helping. No bad headaches, blurry vision from high BP. Has cuff to check BP. Taking decongestant over weekend till now because of bad cold. Has Flonase OTC to use instead after today. [employer] [place] steroid taper for the mouth sores--much better. Still in mouth (some on roof of mouth and inside lip). Getting iron from diet. 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 clobetasol (TEMOVATE) 0.05 % ointment Apply to affected area twice daily. Use sparingly mupirocin (BACTROBAN) 2 % ointment Apply 1 application to affected area three times daily. Location: torso or extremity wound as needed loxapine (LOXITANE) 5 mg capsule Take 1 capsule by mouth twice daily. multivitamin tablet Take 1 tablet by mouth once daily. Clobetasol Propionate (TEMOVATE) 0.05 % external solution apply as directed once daily as needed lisinopril (PRINIVIL) 5 mg tablet Take 1 tablet by mouth once daily. lidocaine (LIDODERM) 5 % Apply 1 Patch topically as directed to affected area(s), up to 3 patches at a time. Apply for twelve hours per day to affected area. gabapentin (NEURONTIN) 300 mg capsule Take 1 capsule by mouth three times daily. estradiol (ESTRACE) 1 mg tablet Take 1 tablet by mouth once daily. Omeprazole 40 mg capsule Take 1 capsule by mouth once daily. metaxalone (SKELAXIN) 800 mg tablet Take 0.5-1 tablets by mouth twice daily. fluticasone (FLONASE) 50 mcg/actuation nasal spray Use 2 Sprays in each nostril once daily as needed. USE BEFORE LYING DOWN FOR BED. aspirin 325 mg ORAL tablet Take one(1) tablet daily. ALPRAZolam (XANAX) 0.25 mg tablet Take 1 tablet by mouth once daily as needed for Anxiety for up to 90 days. HYDROcodone-Acetaminophen (NORCO) 10-325 mg per tablet Take 0.5-1 tablets by mouth every 6 hours as needed for up to 30 days.Earliest Fill Date: 04/24/18 HYDROcodone-Acetaminophen (NORCO) 10-325 mg per tablet Take 0.5-1 tablets by mouth every 6 hours as needed for up to 30 days.Earliest Fill Date: 05/24/18 HYDROcodone-Acetaminophen (NORCO) 10-325 mg per tablet Take 0.5-1 tablets by mouth every 6 hours as needed for up to 30 days.Earliest Fill Date: 06/23/18 HYDROcodone-Acetaminophen (NORCO) 10-325 mg per tablet Take 0.5-1 tablets by mouth every 6 hours as needed for up to 30 days.Earliest Fill Date: 01/23/18 HYDROcodone-Acetaminophen (NORCO) 10-325 mg per tablet Take 0.5-1 tablets by mouth every 6 hours as needed for up to 30 days.Earliest Fill Date: 02/22/18 HYDROcodone-Acetaminophen (NORCO) 10-325 mg per tablet Take 0.5-1 tablets by mouth every 6 hours as needed for up to 30 days.Earliest Fill Date: 03/24/18 HYDROcodone-Acetaminophen (NORCO) 10-325 mg per tablet Take 0.5-1 tablets by mouth every 6 hours as needed for up to 30 days.Earliest Fill Date: 11/23/17 No current facility-administered medications for this visit. OBJECTIVE: BP 183/93 Pulse 100 Resp 20 Wt 58.2 kg (128 lb 6.4 oz) BMI 25.93 kg/m? Patient is alert, oriented times 3, no apparent distress, affect is bright, reactive. Last 5 Encounter BP Readings: Date: BP: 07/24/2018 183/93[average[ 05/03/2018 120/72 04/24/2018 138/78 04/13/2018 138/80 04/06/2018 136/82 Last 5 Encounter Wt Readings: Date: Wt: 07/24/2018 58.2 kg (128 lb 6.4 oz) 05/03/2018 61.2 kg (135 lb) 04/24/2018 60.8 kg (134 lb) 04/13/2018 59.4 kg (131 lb) 04/06/2018 59.4 kg (131 lb) No sinus tenderness; throat red but no exudates Mouth sores--roof of mouth less; lips much better Neck: tonsillar lymph node on left larger than right and mildly tender Heart: Regular rate, rhythm, no murmurs, gallops, rubs. Lungs: Clear to auscultation, bilaterally, breathing non labored. Ext: No cyanosis, clubbing, or edema. ASSESSMENT AND PLAN: Encounter Diagnosis ICD-10-CM 1. Generalized OA M15.9 HYDROcodone-Acetaminophen (NORCO) 10-325 mg per tablet HYDROcodone-Acetaminophen (NORCO) 10-325 mg per tablet HYDROcodone-Acetaminophen (NORCO) 10-325 mg per tablet 2. Degeneration of lumbar or lumbosacral intervertebral disc M51.37 HYDROcodone-Acetaminophen (NORCO) 10-325 mg per tablet HYDROcodone-Acetaminophen (NORCO) 10-325 mg per tablet HYDROcodone-Acetaminophen (NORCO) 10-325 mg per tablet 3. Anxiety in acute stress reaction F41.1 ALPRAZolam (XANAX) 0.25 mg tablet F43.0 4. Oral mucositis (ulcerative), unspecified K12.30 resolving with steroid--prednisone and topical TAC paste Above issues addressed with patient. Patient involved in shared decision making for management of medical issues. History and medications reviewed. Epic updated as needed Refills taken care of and meds adjusted as indicated after reviewed history, exam and labs. Health Maintenance reviewed. Updated record and/or ordered tests as recorded. Encouraged on efforts at healthy diet and regular exercise and adequate sleep. Doing much better from oral mucositis standpoint. Reviewed evaluation per [facility] dermatology. Continue present management. Further evaluation and treatment as indicated. Noted that is getting over acute infection. Monitor for resolution of what appears to be reactive cervical lymphadenopathy. Further evaluation and treatment as indicated. Stable with pain control. No signs of diversion or abuse of medication(s); no adverse effects. Continue present management. [facility] website checked and validated. All prescriptions have been APPROPRIATELY filled. No suspicious activity was identified. 08/03/2018 by Rios Valle MD See patient instructions. Adjust BP meds as discussed. Further evaluation and treatment as indicated. Continue iron replacement through diet. Further evaluation and treatment as indicated. The majority of the visit was spent counseling and/or coordinating care for the patient. [id number] time was at least 25 minutes. Rios Valle MD CNOV Observed: 07/24/2018 Status: COMPLETED Source: [place] 5:40 PM [facility] REPOSITORY Office Visit (INTMWS) DEE MCALLISTER ([id number]) 1955 F Date Time Provider Department 07/24/18 5:40 PM RIOS VALLE INTMWS During your visit today, we recorded the following information about you: Pulse Respiration Blood pressure Weight 100/minute 20/minute 168/82 58.2 kg Rios Valle MD 08/10/2018 12:09 AM Signed Patient presents with: Recheck: Follow up SUBJECTIVE: Dee Yuki Esvin is a 63 year old year old lady here today for 3 month follow up appointment for review of medical conditions. Getting over sinobronchitis symptoms. Meds helping. No bad headaches, blurry vision from high BP. Has cuff to check BP. Taking decongestant over weekend till now because of bad cold. Has Flonase OTC to use instead after today. [employer] [place] steroid taper for the mouth sores--much better. Still in mouth (some on roof of mouth and inside lip). Getting iron from diet. 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 clobetasol (TEMOVATE) 0.05 % ointment Apply to affected area twice daily. Use sparingly mupirocin (BACTROBAN) 2 % ointment Apply 1 application to affected area three times daily. Location: torso or extremity wound as needed loxapine (LOXITANE) 5 mg capsule Take 1 capsule by mouth twice daily. multivitamin tablet Take 1 tablet by mouth once daily. Clobetasol Propionate (TEMOVATE) 0.05 % external solution apply as directed once daily as needed lisinopril (PRINIVIL) 5 mg tablet Take 1 tablet by mouth once daily. lidocaine (LIDODERM) 5 % Apply 1 Patch topically as directed to affected area(s), up to 3 patches at a time. Apply for twelve hours per day to affected area. gabapentin (NEURONTIN) 300 mg capsule Take 1 capsule by mouth three times daily. estradiol (ESTRACE) 1 mg tablet Take 1 tablet by mouth once daily. Omeprazole 40 mg capsule Take 1 capsule by mouth once daily. metaxalone (SKELAXIN) 800 mg tablet Take 0.5-1 tablets by mouth twice daily. fluticasone (FLONASE) 50 mcg/actuation nasal spray Use 2 Sprays in each nostril once daily as needed. USE BEFORE LYING DOWN FOR BED. aspirin 325 mg ORAL tablet Take one(1) tablet daily. ALPRAZolam (XANAX) 0.25 mg tablet Take 1 tablet by mouth once daily as needed for Anxiety for up to 90 days. HYDROcodone-Acetaminophen (NORCO) 10-325 mg per tablet Take 0.5-1 tablets by mouth every 6 hours as needed for up to 30 days.Earliest Fill Date: 04/24/18 HYDROcodone-Acetaminophen (NORCO) 10-325 mg per tablet Take 0.5-1 tablets by mouth every 6 hours as needed for up to 30 days.Earliest Fill Date: 05/24/18 HYDROcodone-Acetaminophen (NORCO) 10-325 mg per tablet Take 0.5-1 tablets by mouth every 6 hours as needed for up to 30 days.Earliest Fill Date: 06/23/18 HYDROcodone-Acetaminophen (NORCO) 10-325 mg per tablet Take 0.5-1 tablets by mouth every 6 hours as needed for up to 30 days.Earliest Fill Date: 01/23/18 HYDROcodone-Acetaminophen (NORCO) 10-325 mg per tablet Take 0.5-1 tablets by mouth every 6 hours as needed for up to 30 days.Earliest Fill Date: 02/22/18 HYDROcodone-Acetaminophen (NORCO) 10-325 mg per tablet Take 0.5-1 tablets by mouth every 6 hours as needed for up to 30 days.Earliest Fill Date: 03/24/18 HYDROcodone-Acetaminophen (NORCO) 10-325 mg per tablet Take 0.5-1 tablets by mouth every 6 hours as needed for up to 30 days.Earliest Fill Date: 11/23/17 No current facility-administered medications for this visit. OBJECTIVE: BP 183/93 Pulse 100 Resp 20 Wt 58.2 kg (128 lb 6.4 oz) BMI 25.93 kg/m? Patient is alert, oriented times 3, no apparent distress, affect is bright, reactive. Last 5 Encounter BP Readings: Date: BP: 07/24/2018 183/93[average[ 05/03/2018 120/72 04/24/2018 138/78 04/13/2018 138/80 04/06/2018 136/82 Last 5 Encounter Wt Readings: Date: Wt: 07/24/2018 58.2 kg (128 lb 6.4 oz) 05/03/2018 61.2 kg (135 lb) 04/24/2018 60.8 kg (134 lb) 04/13/2018 59.4 kg (131 lb) 04/06/2018 59.4 kg (131 lb) No sinus tenderness; throat red but no exudates Mouth sores--roof of mouth less; lips much better Neck: tonsillar lymph node on left larger than right and mildly tender Heart: Regular rate, rhythm, no murmurs, gallops, rubs. Lungs: Clear to auscultation, bilaterally, breathing non labored. Ext: No cyanosis, clubbing, or edema. ASSESSMENT AND PLAN: Encounter Diagnosis ICD-10-CM 1. Generalized OA M15.9 HYDROcodone-Acetaminophen (NORCO) 10-325 mg per tablet HYDROcodone-Acetaminophen (NORCO) 10-325 mg per tablet HYDROcodone-Acetaminophen (NORCO) 10-325 mg per tablet 2. Degeneration of lumbar or lumbosacral intervertebral disc M51.37 HYDROcodone-Acetaminophen (NORCO) 10-325 mg per tablet HYDROcodone-Acetaminophen (NORCO) 10-325 mg per tablet HYDROcodone-Acetaminophen (NORCO) 10-325 mg per tablet 3. Anxiety in acute stress reaction F41.1 ALPRAZolam (XANAX) 0.25 mg tablet F43.0 4. Oral mucositis (ulcerative), unspecified K12.30 resolving with steroid--prednisone and topical TAC paste Above issues addressed with patient. Patient involved in shared decision making for management of medical issues. History and medications reviewed. Epic updated as needed Refills taken care of and meds adjusted as indicated after reviewed history, exam and labs. Health Maintenance reviewed. Updated record and/or ordered tests as recorded. Encouraged on efforts at healthy diet and regular exercise and adequate sleep. Doing much better from oral mucositis standpoint. Reviewed evaluation per [facility] dermatology. Continue present management. Further evaluation and treatment as indicated. Noted that is getting over acute infection. Monitor for resolution of what appears to be reactive cervical lymphadenopathy. Further evaluation and treatment as indicated. Stable with pain control. No signs of diversion or abuse of medication(s); no adverse effects. Continue present management. PDMP website checked and validated. All prescriptions have been APPROPRIATELY filled. No suspicious activity was identified. 08/03/2018 by Rios Valle MD See patient instructions. Adjust BP meds as discussed. Further evaluation and treatment as indicated. Continue iron replacement through diet. Further evaluation and treatment as indicated. The majority of the visit was spent counseling and/or coordinating care for the patient. Kgup-lr-ioxp time was at least 25 minutes. MD Rios Kay MD 07/24/2018 6:10 PM Signed If blood pressures stays over 170/90, can take extra half to whole pill of lisinopril 5mg (2.5 to 5 mg dose) during the day. Stay on 5 mg at night. Let me know if need prescription changed so will not run out. Keep getting iron from diet. Referring Provider: SELF [[id number]] Allergies As of Date: 07/24/2018 (No Known Allergies) Date Reviewed: 07/24/2018 Reviewed by: Luzmaria Vee LPN - Fully Assessed Reason for Visit: Recheck [92] Cmt: Follow up Primary Visit Diagnosis:Generalized OA [M15.9] Other Visit Diagnoses:Degeneration of lumbar or lumbosacral intervertebral disc [M51.37] Anxiety in acute stress reaction [F41.1, F43.0] Oral mucositis (ulcerative), unspecified [K12.30] Comment:resolving with steroid--prednisone and topical TAC paste Order(s):HYDROcodone-Acetaminophen (NORCO) 10-325 mg per tabletTake 0.5-1 tablets by mouth every 6 hours as needed for up to 30 days.Disp: 120 tabletRfl: 0 ALPRAZolam (XANAX) 0.25 mg tabletTake 1 tablet by mouth once daily as needed for Anxiety for up to 90 days.Disp: 14 tabletRfl: 0 [START ON 08/23/2018] HYDROcodone-Acetaminophen (NORCO) 10-325 mg per tabletTake 0.5-1 tablets by mouth every 6 hours as needed for up to 30 days. Earliest Fill Date: 08/23/18Disp: 120 tabletRfl: 0 [START ON 09/22/2018] HYDROcodone-Acetaminophen (NORCO) 10-325 mg per tabletTake 0.5-1 tablets by mouth every 6 hours as needed for up to 30 days. Earliest Fill Date: 09/22/18Disp: 120 tabletRfl: 0 Prescriptions as of 07/24/2018 Sig: ASPIRIN 325 MG TABLET Take one(1) tablet daily. CLOBETASOL 0.05 % TOPICAL OIN* Apply to affected area twice* CLOBETASOL 0.05 % SCALP SOLUT* apply as directed once daily * ESTRADIOL 1 MG TABLET Take 1 tablet by mouth once d* FERROUS SULFATE 325 MG (65 MG* Take 1 tablet by mouth daily * FLUTICASONE 50 MCG/ACTUATION * Use 2 Sprays in each nostril * GABAPENTIN 300 MG CAPSULE Take 1 capsule by mouth three* LIDOCAINE 5 % TOPICAL PATCH Apply 1 Patch topically as di* LOXAPINE SUCCINATE 5 MG CAPSU* Take 1 capsule by mouth twice* METAXALONE 800 MG TABLET Take 0.5-1 tablets by mouth t* MULTIVITAMIN TABLET Take 1 tablet by mouth once d* MUPIROCIN 2 % TOPICAL OINTMENT Apply 1 application to affect* OMEPRAZOLE 40 MG CAPSULE,BITA* Take 1 capsule by mouth once * X LISINOPRIL 5 MG TABLET Take 1 tablet by mouth once d* ALPRAZOLAM 0.25 MG TABLET Take 1 tablet by mouth once d* HYDROCODONE 10 MG-ACETAMINOPH* Take 0.5-1 tablets by mouth e* HYDROCODONE 10 MG-ACETAMINOPH* Take 0.5-1 tablets by mouth e* HYDROCODONE 10 MG-ACETAMINOPH* Take 0.5-1 tablets by mouth e* HYDROCODONE 10 MG-ACETAMINOPH* Take 0.5-1 tablets by mouth e* HYDROCODONE 10 MG-ACETAMINOPH* Take 0.5-1 tablets by mouth e* HYDROCODONE 10 MG-ACETAMINOPH* Take 0.5-1 tablets by mouth e* HYDROCODONE 10 MG-ACETAMINOPH* Take 0.5-1 tablets by mouth e* HYDROCODONE 10 MG-ACETAMINOPH* Take 0.5-1 tablets by mouth e* HYDROCODONE 10 MG-ACETAMINOPH* Take 0.5-1 tablets by mouth e* Problem List As Of Date 07/24/2018 Noted Resolved PSORIAS RELATED DIS NEC [L40.8] More... ALLERGIC RHINITIS NOS [J30.9] More... Generalized OA [M15.9] Degeneration of lumbar or lumbosacral intervert* Dyslipidemia (high LDL; low HDL) [E78.5] OSTEOPOROSIS NOS [M81.0] IRRITABLE COLON [K58.9] GENERALIZED ANXIETY DIS [F41.1] DEPRESSIVE DISORDER NEC [F32.9] Essential hypertension [I10] More... 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] INVALID FOR* ULCER OF HEEL/PLANTAR MIDFOOT [L97.409] INVALID FOR* ULCER OF OTHER PART FOOT - TOES [L97.509] INVALID FOR* CELLULITIS OF FOOT [L03.119, L02.619] INVALID FOR* Vitamin D Deficiency [E55.9] INVALID FOR* Multiple thyroid nodules [E04.2] INVALID FOR* Right knee pain [M25.561] INVALID FOR* Stenosis of right carotid artery [I65.21] INVALID FOR* Left lower quadrant pain [R10.32] INVALID FOR* Other instructions from your clinician: If blood pressures stays over 170/90, can take extra half to whole pill of lisinopril 5mg (2.5 to 5 mg dose) during the day. Stay on 5 mg at night. Let me know if need prescription changed so will not run out. Keep getting iron from diet. Prescriptions ordered this encounter Disp Refills Start End HYDROCODONE 10 MG-ACETAMINOPHEN 325 * 120 * 0 07/24/2018 08/23/2018 Class: Print RX Route: ORAL Sig: Take 0.5-1 tablets by mouth every 6 hours as needed for up to 30 days. ALPRAZOLAM 0.25 MG TABLET 14 t* 0 07/24/2018 10/22/2018 Class: Print RX Route: ORAL Sig: Take 1 tablet by mouth once daily as needed for Anxiety for up to 90 days. HYDROCODONE 10 MG-ACETAMINOPHEN 325 * 120 * 0 08/23/2018 09/22/2018 Class: Print RX Route: ORAL Sig: Take 0.5-1 tablets by mouth every 6 hours as needed for up to 30 days. Earliest Fill Date: 08/23/18 HYDROCODONE 10 MG-ACETAMINOPHEN 325 * 120 * 0 09/22/2018 10/22/2018 Class: Print RX Route: ORAL Sig: Take 0.5-1 tablets by mouth every 6 hours as needed for up to 30 days. Earliest Fill Date: 09/22/18 Medications Discontinued During This Encounter dexamethasone (DECADRON) 0.5 mg/5 mL* 120 * 0 06/02/2018 07/24/2018 Sig: Swish for 5 minutes then spit out Patient not taking: Reported on 07/24/2018 Disc: Reason for discontinue is not on file. dexamethasone (DECADRON) 0.5 mg/5 mL* 120 * 0 05/03/2018 07/24/2018 Sig: Swish for 5 minutes then spit out Patient not taking: Reported on 07/24/2018 Disc: Reason for discontinue is not on file. meloxicam (MOBIC) 15 mg tablet 30 t* 5 04/24/2018 07/24/2018 Route: ORAL Sig: Take 0.5-1 tablets by mouth once daily. With food. As directed Patient not taking: Reported on 07/24/2018 Disc: Reason for discontinue is not on file. HYDROcodone-Acetaminophen (NORCO) 10* 120 * 0 04/24/2018 07/24/2018 Class: Print RX Route: ORAL Sig: Take 0.5-1 tablets by mouth every 6 hours as needed for up to 30 days. Earliest Fill Date: 04/24/18 Disc: Reason for discontinue is not on file. ALPRAZolam (XANAX) 0.25 mg tablet 14 t* 0 04/24/2018 07/24/2018 Class: Print RX Route: ORAL Sig: Take 1 tablet by mouth once daily as needed for Anxiety for up to 90 days. Disc: Reason for discontinue is not on file. Disposition: Return for As scheduled. Follow-up and Disposition History Recorded Encounter Status:Closed by RIOS VALLE MD on 08/10/18 CBC Collected: 06/19/2018 Status: F Source: [place] 1:07 PM [facility] REPOSITORY TYPE CODE TESTS RESULT OUT OF REFERENCE UNITS RANGE LAB WBC 3.70-11.00 k/uL WBC 9.86 LAB RBC 3.90-5.20 m/uL RBC 4.10 LAB HGB 11.5-15.5 g/dL Hemoglobin 11.5 LAB HCT 36.0-46.0 % Hematocrit 39.9 LAB MCV 80.0-100.0 fL MCV 97.3 LAB MCH 26.0-34.0 pG MCH 28.0 LAB MCHC 30.5-36.0 g/dL Low MCHC 28.8 LAB RDWCV 11.5-15.0 % RDW-CV 12.8 LAB PLTCT 150-400 k/uL Platelet High Count 440 LAB MPV 9.0-12.7 fL MPV 9.8 LAB ABSNUC <0.01 k/uL Absolute nRBC <0.01 Performed By: #### CBC, IRON #### [facility] [address] [place], [place] [address] IRON AND TIBC Collected: 06/19/2018 Status: F Source: [place] 1:07 PM [facility] REPOSITORY TYPE CODE TESTS RESULT OUT OF REFERENCE UNITS RANGE LAB IRN 41-186 ug/dL Iron 46 LAB TIBC 232-386 ug/dL TIBC 346 LAB SAT 15-57 % Low Transferrin Saturatn 13 Performed By: #### CBC, IRON #### [facility] [address] [place], [place] [address] MISCELLANEOUS SPECIMEN Observed: 05/24/2018 Status: F Source: [place] 9:30 AM [facility] REPOSITORY Patient: DEE MCALLISTER : 1955 (63/F) Acct Num: [id number] Phys: Lavelle Oropeza MD Unit Num: [id number] Loc: LABSPEC Specimen: [id number] Received: 05/24/18 - 1535 Spec Type: [facility] TISSUES 1 TISSUES: Oral cavity, NOS COMMENT The biopsy contains a small fragment of benign squamous mucosa with reactive change with associated ulceration and granulation with acute and chronic inflammation. No granulomas are identified. No lymphoid aggregates are present. Clinical correlation is suggested. Case has been reviewed in consultation with Dr. Grijalva who concurs with the above diagnosis. IDC:AMOS GROSS DESCRIPTION Received in fixative is one container labeled with the patient's name and designated oral biopsy. The specimen consists of a piece of marcial mucosal tissue measuring 0.3 x 0.1 x 0.1 cm. The specimen is totally submitted in one cassette. / SJ:jimbo 05/25/18 TC:2 CPT: 56063 HEADER OPERATION: Incisional biopsy PRE-OP DIAGNOSIS: Evaluate for Crohn's TISSUE SUBMITTED: Oral mucositis, permanent pathology MICROSCOPIC DESCRIPTION Slides are reviewed. MICROSCOPIC DIAGNOSIS Oral mucosa, biopsy: Ulceration, granulation and associated acute and chronic inflammation. Negative for acid-fast bacilli and fungal organisms. AM:jimbo 05/28/18 Signed Varinder Garrett 05/28/18 <signature on file> Performed By: #### PMISC #### [facility] [address] [place], [address] VITAMIN B12 Collected: 05/21/2018 Status: F Source: [place] 5:28 PM [facility] REPOSITORY TYPE CODE TESTS RESULT OUT OF REFERENCE UNITS RANGE LAB B12 232-1245 pg/mL Vitamin B12 768 Performed By: #### B12 #### [facility] [address] [place], [place] [address] CNCO Observed: 05/16/2018 Status: COMPLETED Source: [place] 1:00 PM [facility] [place] REPOSITORY HNO ID: [id number] Author: Mammography Coordinator Service: (none) Author Type: Physician Type: Letter Filed: 05/17/2018 11:32 PM Note Text: May 16, 2018 PID: [id number] Dee Mcallister [address] [place] [address] Dear Ms. Mcallister, We are pleased to inform you that the results of your recent breast imaging exam on 05/16/2018 are normal. Early detection of cancer is very important. We also understand recommendations regarding breast cancer screening are controversial. Please discuss with your primary care provider which strategy is best for you and whether a mammogram is right for you. Your imaging studies and report will be kept on file at [facility] as part of your permanent medical record and are available for your continuing care. Thank you for allowing us to help in meeting your health care needs. Sincerely, Dr. Orosco Interpreting Radiologist [facility] (Normal over 40) PROGRESS Observed: 05/16/2018 Status: COMPLETED Source: [place] 12:50 PM [facility] REPOSITORY HNO ID: [id number] Author: Chapis Pepper Service: (none) Author Type: (none) Type: Progress Notes Filed: 05/16/2018 12:50 PM Note Text: Radiology Service Progress Note PATIENT NAME: Dee Mcallister DATE OF SERVICE: May 16, 2018 TIME: 12:50 PM PATIENT IDENTITY VERIFICATION COMPLETED USING TWO (2) METHODS: Patient confirmed name verbally and Date of . PATIENT GENDER DATA: Female. status: : No status: NO. PATIENT RELEVANT IMPLANT DATA REVIEWED: Not Applicable RADIOLOGY DEPARTMENT: [facility] PERIPHERAL IV DATA: Not applicable SIGNED BY: Chapis Pepper May 16, 2018 12:50 PM [facility] SCREENING Observed: 05/16/2018 Status: F Source: [place] 11:55 AM [facility] REPOSITORY * * *Final Report* * * DATE OF EXAM: May 16 2018 11:55AM WO 0581 - [facility] SCREENING / PROCEDURE REASON: Encounter for screening mammogram for malignant neoplasm of breast * * * * Physician Interpretation * * * * RESULT: #[id number] - [facility] SCREENING BILATERAL DIGITAL SCREENING MAMMOGRAM WITH CAD: 05/16/2018 HISTORY: Screening Mammogram - patient reports NO breast symptoms /priors available for comparison. RESULT: TECHNIQUE: The study was acquired using full field digital technology and interpreted from soft copy. Current study was also evaluated with a Computer Aided Detection (CAD). Comparison is made to exams dated: 01/05/2017 mammogram - [facility], 11/02/2015 mammogram - [facility], and 11/28/2011 mammogram - [facility]. There are scattered fibroglandular elements in both breasts. No significant masses, calcifications, or other findings are seen in either breast. There has been no significant interval change. IMPRESSION: NEGATIVE There is no mammographic evidence of malignancy. A 1 year screening mammogram is recommended. Gerson bianchi/keysha:05/16/2018 13:00:09 [employer]: Grecia PEPPER(R)(M), [facility] letter sent: Normal over 40 Mammogram BI-RADS: 1 Negative Multiple national specialty organizations have released breast cancer screening guidelines for women at average risk for developing breast cancer - guidelines that are based on both evidence and opinion, yet differ on when to start and how often to screen for breast cancer. With representation from Breast Imaging, Internal Medicine, Women's Health, Family Medicine, and Medical/Surgical Oncology, the [facility] has carefully reviewed the data and reached the following consensus: 1) All women should engage in shared decision-making with their providers to decide when to start and how often to screen; 2) All women should have the opportunity to start screening mammography at age 40; 3) For women ages 45-55, we recommend annual screening mammograms; 4) For women ages 55 and over, we support both the transition from an annual to a biennial interval if this aligns more with patient's values and preferences, or continuation with annual screening; 5) All women should discuss with their providers when to stop screening mammograms. Insulation Cutter And Former: Keysha Transcribe Date/Time: May 16 2018 11:56A Dictated by: GERSON OROSCO MD This examination was interpreted and the report reviewed and electronically signed by: GERSON OROSCO MD on May 16 2018 1:00PM EST [id number] CBC AND DIFFERENTIAL Collected: 05/03/2018 Status: F Source: [place] 4:01 PM [facility] REPOSITORY TYPE CODE TESTS RESULT OUT OF REFERENCE UNITS RANGE LAB WBC 3.70-11.00 k/uL WBC 10.86 LAB RBC 3.90-5.20 m/uL Low RBC 3.71 LAB HGB 11.5-15.5 g/dL Low Hemoglobin 11.0 LAB HCT 36.0-46.0 % Hematocrit 37.1 LAB MCV 80.0-100.0 fL MCV 100.0 LAB MCH 26.0-34.0 pG MCH 29.6 LAB MCHC 30.5-36.0 g/dL Low MCHC 29.6 LAB RDWCV 11.5-15.0 % RDW-CV 13.4 LAB PLTCT 150-400 k/uL Platelet Count 381 LAB MPV 9.0-12.7 fL MPV 9.4 LAB ANEUT % Neut% 66.5 LAB AANEUT 1.45-7.50 k/uL Abs Neut 7.22 LAB ALYMP % Lymph% 23.2 LAB AALYMP 1.00-4.00 k/uL Abs Lymph 2.52 LAB AMONO % Clark% 8.1 LAB AAMONO <0.87 k/uL Abs Clark High 0.88 LAB AEOS % Eosin% 1.8 LAB AAEOS <0.46 k/uL Abs Eosin 0.20 LAB ABASO % Baso% 0.4 LAB AABASO <0.11 k/uL Abs Baso 0.04 LAB AUNRBC 0 /100 WBC NRBCs 0.0 LAB ABNRBC <0.01 k/uL Absolute nRBC <0.01 LAB DTYP DTYPE Auto Diff Performed By: #### CBCDIF, WSR, IRON, B12, SERFOL, CELSCR, ANAS #### [place] [address] [place] [address] SED RATE WESTERGREN Collected: 05/03/2018 Status: F Source: [place] 4:01 [facility] REPOSITORY TYPE CODE TESTS RESULT OUT OF REFERENCE UNITS RANGE LAB WSR 0-20 mm/hr Sed Rate High Westergren 30 Performed By: #### CBCDIF, WSR, IRON, B12, SERFOL, CELSCR, ANAS #### [place] [address] IRON AND TIBC Collected: 05/03/2018 Status: F Source: [place] 4: [facility] REPOSITORY TYPE CODE TESTS RESULT OUT OF REFERENCE UNITS RANGE LAB IRN 41-186 ug/dL Low Iron 25 LAB TIBC 232-386 ug/dL TIBC 342 LAB SAT 15-57 % Low Transferrin Saturatn 7 Performed By: #### CBCDIF, WSR, IRON, B12, SERFOL, CELSCR, ANAS #### [place] [address] VITAMIN B12 Collected: 05/03/2018 Status: F Source: [place] 4: [facility] REPOSITORY TYPE CODE TESTS RESULT OUT OF REFERENCE UNITS RANGE LAB B12 232-1245 pg/mL High Vitamin B12 1849 Performed By: #### CBCDIF, WSR, IRON, B12, SERFOL, CELSCR, ANAS #### [place] [address] [place] [address] FOLATE, SERUM Collected: 05/03/2018 Status: F Source: [place] 4: [facility] REPOSITORY TYPE CODE TESTS RESULT OUT OF REFERENCE UNITS RANGE LAB SERFOL >4.7 ng/mL Folate, 16.7 Serum Performed By: #### CBCDIF, WSR, IRON, B12, SERFOL, CELSCR, ANAS #### [place] [address] CELIAC SCR W REFLEX Collected: 05/03/2018 Status: F Source: [place] 4:01 PM [facility] REPOSITORY TYPE CODE TESTS RESULT OUT OF REFERENCE UNITS RANGE LAB IGA 78-391 mg/dL IgA 246 LAB TGLUTA <20 Units Transglutaminase IgA 4 Result Comment: Negative : < 20 Units Weak Positive : 20 - 30 Units Moderate Pos to Strong Pos: >30 Units The following results were obtained with the [employer] Lite h-tTG IgA BARRY. h-tTG IgA values obtained with different manufacturers' assay methods may not be used interchangeably. The magnitude of th e reported IgA levels cannot be correlated to an endpoint titer. LAB CINTER No serologic evidence of Interpretation No celiac disease. serologic evidence of celiac disease. Performed By: #### CBCDIF, WSR, IRON, B12, SERFOL, CELSCR, ANAS #### [facility] [address] [place], [place] [address] PORTILLO Collected: 05/03/2018 Status: F Source: [place] 4:01 [facility] REPOSITORY TYPE CODE TESTS RESULT OUT OF REFERENCE UNITS RANGE LAB ANAQL Negative PORTILLO Negative by EIA, Qual LAB ANAEIA OD Ratio PORTILLO 0.4 by EIA Result Comment: OD Ratio is interpreted as follows: Negative <1.0 Positive >=1.0 Performed By: #### CBCDIF, WSR, IRON, B12, SERFOL, CELSCR, ANAS #### [facility] [address] [place], [place] [address] PROGRESS Observed: 05/03/2018 Status: COMPLETED Source: [place] 3:39 PM [facility] REPOSITORY HNO ID: [id number] Author: Zina (Arun) Alessandro Service: (none) Author Type: Nurse Practitioner Type: Progress Notes Filed: 05/03/2018 4:22 PM Note Text: 05/03/2018 No chief complaint on file. SUBJECTIVE: This is a 63 year old that is here today for continues painful oral lesions to bilateral bucal lesions and across entire lower lip. Painful, requesting refill on the decadron swish and spit. She states that this is the only thing that helps. She states that it would start to get better, but has never completely gone away. She has been seen several times for this since in the last month. She states that she went to the dentist and he told her that there is no tooth cause and suggested autoimmune. She is hoping for testing today. She denies any genital lesions or a history of ever having them. She does not smoke or use chew tobacco. 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 MEDICATIONS Current Outpatient Prescriptions: clobetasol (TEMOVATE) 0.05 % ointment Apply to affected area twice daily. Use sparingly meloxicam (MOBIC) 15 mg tablet Take 0.5-1 tablets by mouth once daily. With food. As directed mupirocin (BACTROBAN) 2 % ointment Apply 1 application to affected area three times daily. Location: torso or extremity wound as needed loxapine (LOXITANE) 5 mg capsule Take 1 capsule by mouth twice daily. ALPRAZolam (XANAX) 0.25 mg tablet Take 1 tablet by mouth once daily as needed for Anxiety for up to 90 days. HYDROcodone-Acetaminophen (NORCO) 10-325 mg per tablet Take 0.5-1 tablets by mouth every 6 hours as needed for up to 30 days.Earliest Fill Date: 04/24/18 dexamethasone (DECADRON) 0.5 mg/5 mL elixir Swish for 5 minutes then spit out [START ON 05/24/2018] HYDROcodone-Acetaminophen (NORCO) 10- 325 mg per tablet Take 0.5-1 tablets by mouth every 6 hours as needed for up to 30 days.Earliest Fill Date: 05/24/18 [START ON 06/23/2018] HYDROcodone-Acetaminophen (NORCO) 10- 325 mg per tablet Take 0.5-1 tablets by mouth every 6 hours as needed for up to 30 days.Earliest Fill Date: 06/23/18 HYDROcodone-Acetaminophen (NORCO) 10-325 mg per tablet Take 0.5-1 tablets by mouth every 6 hours as needed for up to 30 days.Earliest Fill Date: 01/23/18 multivitamin tablet Take 1 tablet by mouth once daily. HYDROcodone-Acetaminophen (NORCO) 10-325 mg per tablet Take 0.5-1 tablets by mouth every 6 hours as needed for up to 30 days.Earliest Fill Date: 02/22/18 HYDROcodone-Acetaminophen (NORCO) 10-325 mg per tablet Take 0.5-1 tablets by mouth every 6 hours as needed for up to 30 days.Earliest Fill Date: 03/24/18 Clobetasol Propionate (TEMOVATE) 0.05 % external solution apply as directed once daily as needed lisinopril (PRINIVIL) 5 mg tablet Take 1 tablet by mouth once daily. lidocaine (LIDODERM) 5 % Apply 1 Patch topically as directed to affected area(s), up to 3 patches at a time. Apply for twelve hours per day to affected area. gabapentin (NEURONTIN) 300 mg capsule Take 1 capsule by mouth three times daily. estradiol (ESTRACE) 1 mg tablet Take 1 tablet by mouth once daily. Omeprazole 40 mg capsule Take 1 capsule by mouth once daily. HYDROcodone-Acetaminophen (NORCO) 10-325 mg per tablet Take 0.5-1 tablets by mouth every 6 hours as needed for up to 30 days.Earliest Fill Date: 11/23/17 metaxalone (SKELAXIN) 800 mg tablet Take 0.5-1 tablets by mouth twice daily. fluticasone (FLONASE) 50 mcg/actuation nasal spray Use 2 Sprays in each nostril once daily as needed. USE BEFORE LYING DOWN FOR BED. aspirin 325 mg ORAL tablet Take one(1) tablet daily. No current facility-administered medications for this visit. Medications and allergies reviewed by this provider. SOCIAL HISTORY Social History Marital status: Spouse name: Years of education: Number of children: 3 Occupational History Occupation Employer Comment [employer] Social History Main Topics Smoking status: Former Smoker Packs/day: 0.00 Years: 0.00 Quit date: 11/04/2006 Smokeless tobacco: Never Used Alcohol use: Yes Comment: rarely Drug use: No Social History Narrative 11/10/16--son REVIEW OF SYSTEMS see HPI OBJECTIVE: BP 120/72 Pulse 98 Temp 36.9 ?C (98.4 ?F) Resp 20 Wt 61.2 kg (135 lb) SpO2 97% BMI 27.27 kg/m? . Vital signs reviewed by this provider. PHYSICAL EXAMINATION: General appearance: Well appearing, alert, in no acute distress, well-hydrated, well nourished. Skin: lower lip covered in aphthous ulcers, none to upper lip. No drainage or SANDS of infection. Oropharynx: Positive findings: aphthous ulceration to lower lip and bilateral buccal mucosa. Neck: + submaxillary adenopathy Lungs: Lungs clear to auscultation. No wheezing, rhonchi, rales Heart: RRR without murmur, gallop, or rubs. No ectopy ASSESSMENT/PLAN: 1. Aphthous ulcer of mouth - ICD9: 528.2, ICD10: K12.0 - Differentials: behcet syndorme, lupus, celiac, autoimmune bullous, nutrient deficiency, anemia - would like to start with labs - consult to ENT for biopsy - CBC + DIFF - SED RATE WESTERGREN - VITAMIN B12 BLOOD - FOLATE SERUM - IRON + TIBC - PORTILLO BLOOD - CELIAC SCREEN WITH REFLEX - CONSULT TO ENT LINETTE Huang Observed: 05/03/2018 Status: COMPLETED Source: [place] 3:20 PM [facility] REPOSITORY Office Visit (FAMPWS) DEE MCALLISTER ([id number]) 1955 F Date Time Provider Department 05/03/18 3:20 PM ZINA PARTIDA (ARUN) FAMPWS During your visit today, we recorded the following information about you: Temperature Pulse Respiration Blood pressure 98.4 degrees 98/minute 20/minute 120/72 Weight 61.2 kg Zina Partida APRN.CNP 05/03/2018 4:22 PM Signed 05/03/2018 No chief complaint on file. SUBJECTIVE: This is a 63 year old that is here today for continues painful oral lesions to bilateral bucal lesions and across entire lower lip. Painful, requesting refill on the decadron swish and spit. She states that this is the only thing that helps. She states that it would start to get better, but has never completely gone away. She has been seen several times for this since in the last month. She states that she went to the dentist and he told her that there is no tooth cause and suggested autoimmune. She is hoping for testing today. She denies any genital lesions or a history of ever having them. She does not smoke or use chew tobacco. 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 MEDICATIONS Current Outpatient Prescriptions: clobetasol (TEMOVATE) 0.05 % ointment Apply to affected area twice daily. Use sparingly meloxicam (MOBIC) 15 mg tablet Take 0.5-1 tablets by mouth once daily. With food. As directed mupirocin (BACTROBAN) 2 % ointment Apply 1 application to affected area three times daily. Location: torso or extremity wound as needed loxapine (LOXITANE) 5 mg capsule Take 1 capsule by mouth twice daily. ALPRAZolam (XANAX) 0.25 mg tablet Take 1 tablet by mouth once daily as needed for Anxiety for up to 90 days. HYDROcodone-Acetaminophen (NORCO) 10-325 mg per tablet Take 0.5-1 tablets by mouth every 6 hours as needed for up to 30 days.Earliest Fill Date: 04/24/18 dexamethasone (DECADRON) 0.5 mg/5 mL elixir Swish for 5 minutes then spit out [START ON 05/24/2018] HYDROcodone-Acetaminophen (NORCO) 10- 325 mg per tablet Take 0.5-1 tablets by mouth every 6 hours as needed for up to 30 days.Earliest Fill Date: 05/24/18 [START ON 06/23/2018] HYDROcodone-Acetaminophen (NORCO) 10- 325 mg per tablet Take 0.5-1 tablets by mouth every 6 hours as needed for up to 30 days.Earliest Fill Date: 06/23/18 HYDROcodone-Acetaminophen (NORCO) 10-325 mg per tablet Take 0.5-1 tablets by mouth every 6 hours as needed for up to 30 days.Earliest Fill Date: 01/23/18 multivitamin tablet Take 1 tablet by mouth once daily. HYDROcodone-Acetaminophen (NORCO) 10-325 mg per tablet Take 0.5-1 tablets by mouth every 6 hours as needed for up to 30 days.Earliest Fill Date: 02/22/18 HYDROcodone-Acetaminophen (NORCO) 10-325 mg per tablet Take 0.5-1 tablets by mouth every 6 hours as needed for up to 30 days.Earliest Fill Date: 03/24/18 Clobetasol Propionate (TEMOVATE) 0.05 % external solution apply as directed once daily as needed lisinopril (PRINIVIL) 5 mg tablet Take 1 tablet by mouth once daily. lidocaine (LIDODERM) 5 % Apply 1 Patch topically as directed to affected area(s), up to 3 patches at a time. Apply for twelve hours per day to affected area. gabapentin (NEURONTIN) 300 mg capsule Take 1 capsule by mouth three times daily. estradiol (ESTRACE) 1 mg tablet Take 1 tablet by mouth once daily. Omeprazole 40 mg capsule Take 1 capsule by mouth once daily. HYDROcodone-Acetaminophen (NORCO) 10-325 mg per tablet Take 0.5-1 tablets by mouth every 6 hours as needed for up to 30 days.Earliest Fill Date: 11/23/17 metaxalone (SKELAXIN) 800 mg tablet Take 0.5-1 tablets by mouth twice daily. fluticasone (FLONASE) 50 mcg/actuation nasal spray Use 2 Sprays in each nostril once daily as needed. USE BEFORE LYING DOWN FOR BED. aspirin 325 mg ORAL tablet Take one(1) tablet daily. No current facility-administered medications for this visit. Medications and allergies reviewed by this provider. SOCIAL HISTORY Social History Marital status: Spouse name: Years of education: Number of children: 3 Occupational History Occupation Employer Comment [employer] Social History Main Topics Smoking status: Former Smoker Packs/day: 0.00 Years: 0.00 Quit date: 11/04/2006 Smokeless tobacco: Never Used Alcohol use: Yes Comment: rarely Drug use: No Social History Narrative 11/10/16--son REVIEW OF SYSTEMS see HPI OBJECTIVE: BP 120/72 Pulse 98 Temp 36.9 ?C (98.4 ?F) Resp 20 Wt 61.2 kg (135 lb) SpO2 97% BMI 27.27 kg/m? . Vital signs reviewed by this provider. PHYSICAL EXAMINATION: General appearance: Well appearing, alert, in no acute distress, well-hydrated, well nourished. Skin: lower lip covered in aphthous ulcers, none to upper lip. No drainage or SANDS of infection. Oropharynx: Positive findings: aphthous ulceration to lower lip and bilateral buccal mucosa. Neck: + submaxillary adenopathy Lungs: Lungs clear to auscultation. No wheezing, rhonchi, rales Heart: RRR without murmur, gallop, or rubs. No ectopy ASSESSMENT/PLAN: 1. Aphthous ulcer of mouth - ICD9: 528.2, ICD10: K12.0 - Differentials: behcet syndorme, lupus, celiac, autoimmune bullous, nutrient deficiency, anemia - would like to start with labs - consult to ENT for biopsy - CBC + DIFF - SED RATE WESTERGREN - VITAMIN B12 BLOOD - FOLATE SERUM - IRON + TIBC - PORTILLO BLOOD - CELIAC SCREEN WITH REFLEX - CONSULT TO ENT Zina Partida APRN.COMMERCIAL ESTIMATOR Referring Provider: SELF [[id number]] Allergies As of Date: 05/03/2018 (No Known Allergies) Date Reviewed: 05/03/2018 Reviewed by: Chante Cohn) MARK Ramirez - Fully Assessed Primary Visit Diagnosis:Aphthous ulcer of mouth [K12.0] Order(s):CBC + DIFF [SQCBCDIF] Order #: [id number] FUTURE SED RATE WESTERGREN [SQWSR] Order #: [id number] FUTURE VITAMIN B12 BLOOD [SQB12] Order #: [id number] FUTURE FOLATE SERUM [SQSERFOL] Order #: [id number] FUTURE IRON + TIBC [SQIRON] Order #: [id number] FUTURE PORTILLO BLOOD [SQANAS] Order #: [id number] FUTURE CELIAC SCREEN WITH REFLEX [SQCELSCR] Order #: [id number] FUTURE CONSULT TO ENT [9008] Order #: [id number]: 1 Prescriptions as of 05/03/2018 Sig: CLOBETASOL 0.05 % TOPICAL OIN* Apply to affected area twice* MELOXICAM 15 MG TABLET Take 0.5-1 tablets by mouth o* MUPIROCIN 2 % TOPICAL OINTMENT Apply 1 application to affect* LOXAPINE SUCCINATE 5 MG CAPSU* Take 1 capsule by mouth twice* ALPRAZOLAM 0.25 MG TABLET Take 1 tablet by mouth once d* HYDROCODONE 10 MG-ACETAMINOPH* Take 0.5-1 tablets by mouth e* HYDROCODONE 10 MG-ACETAMINOPH* Take 0.5-1 tablets by mouth e* HYDROCODONE 10 MG-ACETAMINOPH* Take 0.5-1 tablets by mouth e* X DEXAMETHASONE 0.5 MG/5 ML ORA* Swish for 5 minutes then spit* HYDROCODONE 10 MG-ACETAMINOPH* Take 0.5-1 tablets by mouth e* MULTIVITAMIN TABLET Take 1 tablet by mouth once d* HYDROCODONE 10 MG-ACETAMINOPH* Take 0.5-1 tablets by mouth e* HYDROCODONE 10 MG-ACETAMINOPH* Take 0.5-1 tablets by mouth e* CLOBETASOL 0.05 % SCALP SOLUT* apply as directed once daily * LISINOPRIL 5 MG TABLET Take 1 tablet by mouth once d* LIDOCAINE 5 % TOPICAL PATCH Apply 1 Patch topically as di* GABAPENTIN 300 MG CAPSULE Take 1 capsule by mouth three* ESTRADIOL 1 MG TABLET Take 1 tablet by mouth once d* OMEPRAZOLE 40 MG CAPSULE,BITA* Take 1 capsule by mouth once * HYDROCODONE 10 MG-ACETAMINOPH* Take 0.5-1 tablets by mouth e* METAXALONE 800 MG TABLET Take 0.5-1 tablets by mouth t* FLUTICASONE 50 MCG/ACTUATION * Use 2 Sprays in each nostril * ASPIRIN 325 MG TABLET Take one(1) tablet daily. Problem List As Of Date 05/03/2018 Noted Resolved PSORIAS RELATED DIS NEC [L40.8] More... ALLERGIC RHINITIS NOS [J30.9] More... Generalized OA [M15.9] Degeneration of lumbar or lumbosacral intervert* Dyslipidemia (high LDL; low HDL) [E78.5] OSTEOPOROSIS NOS [M81.0] IRRITABLE COLON [K58.9] GENERALIZED ANXIETY DIS [F41.1] DEPRESSIVE DISORDER NEC [F32.9] Essential hypertension [I10] More... 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] INVALID FOR* ULCER OF HEEL/PLANTAR MIDFOOT [L97.409] INVALID FOR* ULCER OF OTHER PART FOOT - TOES [L97.509] INVALID FOR* CELLULITIS OF FOOT [L03.119, L02.619] INVALID FOR* Vitamin D Deficiency [E55.9] INVALID FOR* Multiple thyroid nodules [E04.2] INVALID FOR* Right knee pain [M25.561] INVALID FOR* Stenosis of right carotid artery [I65.21] INVALID FOR* Left lower quadrant pain [R10.32] INVALID FOR* Encounter Status:Closed by ZINA PARTIDA on 05/03/18 PROGRESS Observed: 04/24/2018 Status: COMPLETED Source: [facility] 5[facility]58 PM [facility] HNO ID: [id number] Author: Rios Valle Service: (none) Author Type: Physician Type: Progress Notes Filed: 05/07/2018 11:01 PM Note Text: Patient presents with: Recheck: Follow up SUBJECTIVE: Dee Mcallister is a 63 year old year old lady here today for 3 month follow up appointment for review of medical conditions. Oral ulcers better inside mouth--still with lesions on lower lip. Responded to the decadron elixir but ran out. Head pain in the afternoon--takes aspirin 325 1 pill just about every day. Headaches related to weather most of the time. Already using Flonase routinely 2 sprays every night Claritin every day also. No problems with eustachian tubes. Plans to get back into walking. 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 With food. As directed multivitamin tablet Take 1 tablet by mouth once daily. Clobetasol Propionate (TEMOVATE) 0.05 % external solution apply as directed once daily as needed lisinopril (PRINIVIL) 5 mg tablet Take 1 tablet by mouth once daily. lidocaine (LIDODERM) 5 % Apply 1 Patch topically as directed to affected area(s), up to 3 patches at a time. Apply for twelve hours per day to affected area. gabapentin (NEURONTIN) 300 mg capsule Take 1 capsule by mouth three times daily. estradiol (ESTRACE) 1 mg tablet Take 1 tablet by mouth once daily. Omeprazole 40 mg capsule Take 1 capsule by mouth once daily. metaxalone (SKELAXIN) 800 mg tablet Take 0.5-1 tablets by mouth twice daily. loxapine (LOXITANE) 5 mg capsule Take 1 capsule by mouth twice daily. clobetasol (TEMOVATE) 0.05 % ointment Apply to affected area twice daily. Use sparingly dicyclomine (BENTYL) 10 mg capsule Take 1 capsule by mouth before meals and at bedtime. As needed fluticasone (FLONASE) 50 mcg/actuation nasal spray Use 2 Sprays in each nostril once daily as needed. USE BEFORE LYING DOWN FOR BED. mupirocin (BACTROBAN) 2 % ointment Apply 1 application to affected area three times daily. Location: torso or extremity wound as needed aspirin 325 mg ORAL tablet Take one(1) tablet daily. Magic Mouthwash ([place] [employer]) 8gm tetracycline +8million units nystatin +200mg hydrocortisone +480ml water. 1 tsp swish/swallow three times a day (1 PINT) (Patient not taking: Reported on 04/24/2018 ) HYDROcodone-Acetaminophen (NORCO) 10-325 mg per tablet Take 0.5-1 tablets by mouth every 6 hours as needed for up to 30 days.Earliest Fill Date: 01/23/18 ALPRAZolam (XANAX) 0.25 mg tablet Take 1 tablet by mouth once daily as needed for Anxiety for up to 90 days. HYDROcodone-Acetaminophen (NORCO) 10-325 mg per tablet Take 0.5-1 tablets by mouth every 6 hours as needed for up to 30 days.Earliest Fill Date: 02/22/18 HYDROcodone-Acetaminophen (NORCO) 10-325 mg per tablet Take 0.5-1 tablets by mouth every 6 hours as needed for up to 30 days.Earliest Fill Date: 03/24/18 HYDROcodone-Acetaminophen (NORCO) 10-325 mg per tablet Take 0.5-1 tablets by mouth every 6 hours as needed for up to 30 days.Earliest Fill Date: 11/23/17 HYDROcodone-Acetaminophen (NORCO) 10-325 mg per tablet Take 0.5-1 tablets by mouth every 6 hours as needed for up to 30 days.Earliest Fill Date: 12/23/17 No current facility-administered medications for this visit. OBJECTIVE: BP 152/86 Pulse 100 Resp 20 Wt 60.8 kg (134 lb) BMI 27.06 kg/m? Patient is alert, oriented times 3, no apparent distress, affect is bright, reactive. Last 5 Encounter BP Readings: Date: BP: 04/24/2018 152/86 04/13/2018 138/80 04/06/2018 136/82 03/27/2018 126/84 01/23/2018 130/70 Last 5 Encounter Wt Readings: Date: Wt: 04/24/2018 60.8 kg (134 lb) 04/13/2018 59.4 kg (131 lb) 04/06/2018 59.4 kg (131 lb) 03/27/2018 60.8 kg (134 lb) 01/23/2018 59 kg (130 lb) 04/24/18 1748 04/24/18 1836 BP: 152/86 138/78 Pulse: 100 Resp: 20 Weight: 60.8 kg (134 lb) Lips: ulcerations on lower lips--healing; at border of upper part of lip and inner mucosa of mouth. Heart: Regular rate, rhythm, no murmurs, gallops, rubs. Lungs: Clear to auscultation, bilaterally, breathing non labored. Ext: No cyanosis, clubbing, or edema. Component Latest Ref Rng AND Units 05/05/2015 01/02/2016 11/15/2016 04/06/2018 Triglyceride <150 mg/dL 103 173 (H) 170 (H) 165 (H) Cholesterol, Total <200 mg/dL 183 150 142 179 HDL Cholesterol >39 mg/dL 51 (L) 37 (L) 39 (L) 42 VLDL Cholesterol <30 mg/dL 21 35 34 33 (H) LDL Cholesterol <100 mg/dL 111 78 69 104 (H) Fasting Time hrs FASTING 12 12 15 TC:HDL Ratio <5.10 3.59 4.05 3.64 4.26 LDL:HDL Ratio <2.54 2.18 2.11 1.77 2.48 Non HDL Cholesterol <130 mg/dL 132 113 103 137 (H) ASSESSMENT AND PLAN: Encounter Diagnosis ICD-10-CM 1. Aphthous ulcer K12.0 dexamethasone (DECADRON) 0.5 mg/5 mL elixir on lips 2. Generalized anxiety disorder F41.1 loxapine (LOXITANE) 5 mg capsule 3. Anxiety in acute stress reaction F41.1 ALPRAZolam (XANAX) 0.25 mg tablet F43.0 4. Generalized OA M15.9 meloxicam (MOBIC) 15 mg tablet HYDROcodone-Acetaminophen (NORCO) 10-325 mg per tablet HYDROcodone-Acetaminophen (NORCO) 10-325 mg per tablet HYDROcodone-Acetaminophen (NORCO) 10-325 mg per tablet 5. Degeneration of lumbar or lumbosacral intervertebral disc M51.37 HYDROcodone-Acetaminophen (NORCO) 10-325 mg per tablet HYDROcodone-Acetaminophen (NORCO) 10-325 mg per tablet HYDROcodone-Acetaminophen (NORCO) 10-325 mg per tablet 6. Psoriasis L40.9 clobetasol (TEMOVATE) 0.05 % ointment 7. Dyslipidemia (high LDL; low HDL) E78.5 LIPID PANEL BASIC 8. Vitamin D deficiency E55.9 VITAMIN D 25 HYDROXY 9. Essential hypertension I10 COMP METABOLIC PANEL CBC 10. IFG (impaired fasting glucose) R73.01 COMP METABOLIC PANEL HGB A1C 11. Encounter for long-term current use of medication Z79.899 COMP METABOLIC PANEL CBC MAGNESIUM BLD 12. Iron deficiency E61.1 FERRITIN BLD IRON + TIBC Above issues addressed with patient. Patient involved in shared decision making for management of her medical issues. History and medications reviewed. Epic updated as needed Refills taken care of and meds adjusted as indicated after reviewed history, exam and labs. Further evaluation and treatment as indicated. Health Maintenance reviewed. Updated record and/or ordered tests as recorded. Encouraged on efforts at healthy diet and regular exercise and adequate sleep. Needs to keep working on diet and exercise with lifestyle changes for effective weight control as well as prevention of DM, and control of BP and lipids. Will extend course of elixir since helping with mouth sores better than other meds tried. Can apply some to lip; can try OTC lower potency topical steroid if needed. Further evaluation and treatment as indicated. Stable with pain control. No signs of diversion or abuse of medication(s); no adverse effects. Continue present management. PDMP website checked and validated. All prescriptions have been APPROPRIATELY filled. No suspicious activity was identified. 04/24/2018 by Rios Valle MD The majority of the visit was spent counseling and/or coordinating care for the patient. Pekk-nh-tqtp time was at least 25 minutes. Rios Valle MD CNOV Observed: 04/24/2018 Status: COMPLETED Source: [place] 5:20 PM [facility] REPOSITORY Office Visit (INTMWS) DEE MCALLISTER ([id number]) 1955 F Date Time Provider Department 04/24/18 5:20 PM RIOS VALLE INTMWS During your visit today, we recorded the following information about you: Pulse Respiration Blood pressure Weight 100/minute 20/minute 138/78 60.8 kg Rios Valle MD 05/07/2018 11:01 PM Signed Patient presents with: Recheck: Follow up SUBJECTIVE: Dee Mcallister is a 63 year old year old lady here today for 3 month follow up appointment for review of medical conditions. Oral ulcers better inside mouth--still with lesions on lower lip. Responded to the decadron elixir but ran out. Head pain in the afternoon--takes aspirin 325 1 pill just about every day. Headaches related to weather most of the time. Already using Flonase routinely 2 sprays every night Claritin every day also. No problems with eustachian tubes. Plans to get back into walking. 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 With food. As directed multivitamin tablet Take 1 tablet by mouth once daily. Clobetasol Propionate (TEMOVATE) 0.05 % external solution apply as directed once daily as needed lisinopril (PRINIVIL) 5 mg tablet Take 1 tablet by mouth once daily. lidocaine (LIDODERM) 5 % Apply 1 Patch topically as directed to affected area(s), up to 3 patches at a time. Apply for twelve hours per day to affected area. gabapentin (NEURONTIN) 300 mg capsule Take 1 capsule by mouth three times daily. estradiol (ESTRACE) 1 mg tablet Take 1 tablet by mouth once daily. Omeprazole 40 mg capsule Take 1 capsule by mouth once daily. metaxalone (SKELAXIN) 800 mg tablet Take 0.5-1 tablets by mouth twice daily. loxapine (LOXITANE) 5 mg capsule Take 1 capsule by mouth twice daily. clobetasol (TEMOVATE) 0.05 % ointment Apply to affected area twice daily. Use sparingly dicyclomine (BENTYL) 10 mg capsule Take 1 capsule by mouth before meals and at bedtime. As needed fluticasone (FLONASE) 50 mcg/actuation nasal spray Use 2 Sprays in each nostril once daily as needed. USE BEFORE LYING DOWN FOR BED. mupirocin (BACTROBAN) 2 % ointment Apply 1 application to affected area three times daily. Location: torso or extremity wound as needed aspirin 325 mg ORAL tablet Take one(1) tablet daily. Magic Mouthwash ([place] [employer]) 8gm tetracycline +8million units nystatin +200mg hydrocortisone +480ml water. 1 tsp swish/swallow three times a day (1 PINT) (Patient not taking: Reported on 04/24/2018 ) HYDROcodone-Acetaminophen (NORCO) 10-325 mg per tablet Take 0.5-1 tablets by mouth every 6 hours as needed for up to 30 days.Earliest Fill Date: 01/23/18 ALPRAZolam (XANAX) 0.25 mg tablet Take 1 tablet by mouth once daily as needed for Anxiety for up to 90 days. HYDROcodone-Acetaminophen (NORCO) 10-325 mg per tablet Take 0.5-1 tablets by mouth every 6 hours as needed for up to 30 days.Earliest Fill Date: 02/22/18 HYDROcodone-Acetaminophen (NORCO) 10-325 mg per tablet Take 0.5-1 tablets by mouth every 6 hours as needed for up to 30 days.Earliest Fill Date: 03/24/18 HYDROcodone-Acetaminophen (NORCO) 10-325 mg per tablet Take 0.5-1 tablets by mouth every 6 hours as needed for up to 30 days.Earliest Fill Date: 11/23/17 HYDROcodone-Acetaminophen (NORCO) 10-325 mg per tablet Take 0.5-1 tablets by mouth every 6 hours as needed for up to 30 days.Earliest Fill Date: 12/23/17 No current facility-administered medications for this visit. OBJECTIVE: BP 152/86 Pulse 100 Resp 20 Wt 60.8 kg (134 lb) BMI 27.06 kg/m? Patient is alert, oriented times 3, no apparent distress, affect is bright, reactive. Last 5 Encounter BP Readings: Date: BP: 04/24/2018 152/86 04/13/2018 138/80 04/06/2018 136/82 03/27/2018 126/84 01/23/2018 130/70 Last 5 Encounter Wt Readings: Date: Wt: 04/24/2018 60.8 kg (134 lb) 04/13/2018 59.4 kg (131 lb) 04/06/2018 59.4 kg (131 lb) 03/27/2018 60.8 kg (134 lb) 01/23/2018 59 kg (130 lb) 04/24/18 1748 04/24/18 1836 BP: 152/86 138/78 Pulse: 100 Resp: 20 Weight: 60.8 kg (134 lb) Lips: ulcerations on lower lips--healing; at border of upper part of lip and inner mucosa of mouth. Heart: Regular rate, rhythm, no murmurs, gallops, rubs. Lungs: Clear to auscultation, bilaterally, breathing non labored. Ext: No cyanosis, clubbing, or edema. Component Latest Ref Rng AND Units 05/05/2015 01/02/2016 11/15/2016 04/06/2018 Triglyceride <150 mg/dL 103 173 (H) 170 (H) 165 (H) Cholesterol, Total <200 mg/dL 183 150 142 179 HDL Cholesterol >39 mg/dL 51 (L) 37 (L) 39 (L) 42 VLDL Cholesterol <30 mg/dL 21 35 34 33 (H) LDL Cholesterol <100 mg/dL 111 78 69 104 (H) Fasting Time hrs FASTING 12 12 15 TC:HDL Ratio <5.10 3.59 4.05 3.64 4.26 LDL:HDL Ratio <2.54 2.18 2.11 1.77 2.48 Non HDL Cholesterol <130 mg/dL 132 113 103 137 (H) ASSESSMENT AND PLAN: Encounter Diagnosis ICD-10-CM 1. Aphthous ulcer K12.0 dexamethasone (DECADRON) 0.5 mg/5 mL elixir on lips 2. Generalized anxiety disorder F41.1 loxapine (LOXITANE) 5 mg capsule 3. Anxiety in acute stress reaction F41.1 ALPRAZolam (XANAX) 0.25 mg tablet F43.0 4. Generalized OA M15.9 meloxicam (MOBIC) 15 mg tablet HYDROcodone-Acetaminophen (NORCO) 10-325 mg per tablet HYDROcodone-Acetaminophen (NORCO) 10-325 mg per tablet HYDROcodone-Acetaminophen (NORCO) 10-325 mg per tablet 5. Degeneration of lumbar or lumbosacral intervertebral disc M51.37 HYDROcodone-Acetaminophen (NORCO) 10-325 mg per tablet HYDROcodone-Acetaminophen (NORCO) 10-325 mg per tablet HYDROcodone-Acetaminophen (NORCO) 10-325 mg per tablet 6. Psoriasis L40.9 clobetasol (TEMOVATE) 0.05 % ointment 7. Dyslipidemia (high LDL; low HDL) E78.5 LIPID PANEL BASIC 8. Vitamin D deficiency E55.9 VITAMIN D 25 HYDROXY 9. Essential hypertension I10 COMP METABOLIC PANEL CBC 10. IFG (impaired fasting glucose) R73.01 COMP METABOLIC PANEL HGB A1C 11. Encounter for long-term current use of medication Z79.899 COMP METABOLIC PANEL CBC MAGNESIUM BLD 12. Iron deficiency E61.1 FERRITIN BLD IRON + TIBC Above issues addressed with patient. Patient involved in shared decision making for management of her medical issues. History and medications reviewed. Epic updated as needed Refills taken care of and meds adjusted as indicated after reviewed history, exam and labs. Further evaluation and treatment as indicated. Health Maintenance reviewed. Updated record and/or ordered tests as recorded. Encouraged on efforts at healthy diet and regular exercise and adequate sleep. Needs to keep working on diet and exercise with lifestyle changes for effective weight control as well as prevention of DM, and control of BP and lipids. Will extend course of elixir since helping with mouth sores better than other meds tried. Can apply some to lip; can try OTC lower potency topical steroid if needed. Further evaluation and treatment as indicated. Stable with pain control. No signs of diversion or abuse of medication(s); no adverse effects. Continue present management. PDMP website checked and validated. All prescriptions have been APPROPRIATELY filled. No suspicious activity was identified. 04/24/2018 by Rios Valle MD The majority of the visit was spent counseling and/or coordinating care for the patient. [id number] time was at least 25 minutes. MD Rios Lopez MD 04/24/2018 6:21 PM Signed Try over the counter hydrocortisone cream or ointment if the decadron elixir not helping for the lips enough Referring Provider: SELF [[id number]] Allergies As of Date: 04/24/2018 (No Known Allergies) Date Reviewed: 04/24/2018 Reviewed by: Luzmaria Vee LPN - Fully Assessed Reason for Visit: Recheck [92] Cmt: Follow up Primary Visit Diagnosis:Aphthous ulcer [K12.0] Comment:on lips Other Visit Diagnoses:Generalized anxiety disorder [F41.1] Anxiety in acute stress reaction [F41.1, F43.0] Generalized OA [M15.9] Degeneration of lumbar or lumbosacral intervertebral disc [M51.37] Psoriasis [L40.9] Dyslipidemia (high LDL; low HDL) [E78.5] Vitamin D deficiency [E55.9] Essential hypertension [I10] IFG (impaired fasting glucose) [R73.01] Encounter for long-term current use of medication [Z79.899] Iron deficiency [E61.1] Order(s):clobetasol (TEMOVATE) 0.05 % ointmentApply to affected area twice daily. Use sparinglyDisp: 30 gRfl: 5 meloxicam (MOBIC) 15 mg tabletTake 0.5-1 tablets by mouth once daily. With food. As directedDisp: 30 tabletRfl: 5 mupirocin (BACTROBAN) 2 % ointmentApply 1 application to affected area three times daily. Location: torso or extremity wound as neededDisp: 30 gRfl: 0 loxapine (LOXITANE) 5 mg capsuleTake 1 capsule by mouth twice daily.Disp: 180 capsuleRfl: 3 ALPRAZolam (XANAX) 0.25 mg tabletTake 1 tablet by mouth once daily as needed for Anxiety for up to 90 days.Disp: 14 tabletRfl: 0 HYDROcodone-Acetaminophen (NORCO) 10-325 mg per tabletTake 0.5-1 tablets by mouth every 6 hours as needed for up to 30 days. Earliest Fill Date: 04/24/18Disp: 120 tabletRfl: 0 [START ON 05/24/2018] HYDROcodone-Acetaminophen (NORCO) 10-325 mg per tabletTake 0.5-1 tablets by mouth every 6 hours as needed for up to 30 days. Earliest Fill Date: 05/24/18Disp: 120 tabletRfl: 0 [START ON 06/23/2018] HYDROcodone-Acetaminophen (NORCO) 10-325 mg per tabletTake 0.5-1 tablets by mouth every 6 hours as needed for up to 30 days. Earliest Fill Date: 06/23/18Disp: 120 tabletRfl: 0 COMP METABOLIC PANEL [SQCMP] Order #: [id number] FUTURE CBC [SQCBC] Order #: [id number] FUTURE HGB A1C [MRSHI5U] Order #: [id number] FUTURE MAGNESIUM BLD [SQMG1] Order #: [id number] FUTURE LIPID PANEL BASIC [SQLIPB] Order #: [id number] FUTURE VITAMIN D 25 HYDROXY [SQVITD] Order #: [id number] FUTURE FERRITIN BLD [SQFERR] Order #: [id number] FUTURE IRON + TIBC [SQIRON] Order #: [id number] FUTURE Prescriptions as of 04/24/2018 Sig: LOXAPINE SUCCINATE 5 MG CAPSU* Take 1 capsule by mouth twice* MULTIVITAMIN TABLET Take 1 tablet by mouth once d* CLOBETASOL 0.05 % SCALP SOLUT* apply as directed once daily * LISINOPRIL 5 MG TABLET Take 1 tablet by mouth once d* LIDOCAINE 5 % TOPICAL PATCH Apply 1 Patch topically as di* GABAPENTIN 300 MG CAPSULE Take 1 capsule by mouth three* ESTRADIOL 1 MG TABLET Take 1 tablet by mouth once d* OMEPRAZOLE 40 MG CAPSULE,BITA* Take 1 capsule by mouth once * METAXALONE 800 MG TABLET Take 0.5-1 tablets by mouth t* FLUTICASONE 50 MCG/ACTUATION * Use 2 Sprays in each nostril * ASPIRIN 325 MG TABLET Take one(1) tablet daily. CLOBETASOL 0.05 % TOPICAL OIN* Apply to affected area twice* MELOXICAM 15 MG TABLET Take 0.5-1 tablets by mouth o* MUPIROCIN 2 % TOPICAL OINTMENT Apply 1 application to affect* ALPRAZOLAM 0.25 MG TABLET Take 1 tablet by mouth once d* HYDROCODONE 10 MG-ACETAMINOPH* Take 0.5-1 tablets by mouth e* HYDROCODONE 10 MG-ACETAMINOPH* Take 0.5-1 tablets by mouth e* HYDROCODONE 10 MG-ACETAMINOPH* Take 0.5-1 tablets by mouth e* X DEXAMETHASONE 0.5 MG/5 ML ORA* Swish for 5 minutes then spit* HYDROCODONE 10 MG-ACETAMINOPH* Take 0.5-1 tablets by mouth e* HYDROCODONE 10 MG-ACETAMINOPH* Take 0.5-1 tablets by mouth e* HYDROCODONE 10 MG-ACETAMINOPH* Take 0.5-1 tablets by mouth e* HYDROCODONE 10 MG-ACETAMINOPH* Take 0.5-1 tablets by mouth e* Medication notes this encounter COMPOUNDED PRESCRIPTION >> Rios Valle MD 04/24/2018 6:24 PM Tried for a week DICYCLOMINE 10 MG CAPSULE >> Rios Valle MD 04/24/2018 6:25 PM not needing for a long time Problem List As Of Date 04/24/2018 Noted Resolved PSORIAS RELATED DIS NEC [L40.8] More... ALLERGIC RHINITIS NOS [J30.9] More... Generalized OA [M15.9] Degeneration of lumbar or lumbosacral intervert* Dyslipidemia (high LDL; low HDL) [E78.5] OSTEOPOROSIS NOS [M81.0] IRRITABLE COLON [K58.9] GENERALIZED ANXIETY DIS [F41.1] DEPRESSIVE DISORDER NEC [F32.9] Essential hypertension [I10] More... 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] INVALID FOR* ULCER OF HEEL/PLANTAR MIDFOOT [L97.409] INVALID FOR* ULCER OF OTHER PART FOOT - TOES [L97.509] INVALID FOR* CELLULITIS OF FOOT [L03.119, L02.619] INVALID FOR* Vitamin D Deficiency [E55.9] INVALID FOR* Multiple thyroid nodules [E04.2] INVALID FOR* Right knee pain [M25.561] INVALID FOR* Stenosis of right carotid artery [I65.21] INVALID FOR* Left lower quadrant pain [R10.32] INVALID FOR* Other instructions from your clinician: Try over the counter hydrocortisone cream or ointment if the decadron elixir not helping for the lips enough Prescriptions ordered this encounter Disp Refills Start End CLOBETASOL 0.05 % TOPICAL OINTMENT 30 g 5 04/24/2018 Sig: Apply to affected area twice daily. Use sparingly MELOXICAM 15 MG TABLET 30 t* 5 04/24/2018 Route: ORAL Sig: Take 0.5-1 tablets by mouth once daily. With food. As directed MUPIROCIN 2 % TOPICAL OINTMENT 30 g 0 04/24/2018 Route: TOPICAL Sig: Apply 1 application to affected area three times daily. Location: torso or extremity wound as needed LOXAPINE SUCCINATE 5 MG CAPSULE 180 * 3 04/24/2018 Route: ORAL Sig: Take 1 capsule by mouth twice daily. ALPRAZOLAM 0.25 MG TABLET 14 t* 0 04/24/2018 07/23/2018 Class: Print RX Route: ORAL Sig: Take 1 tablet by mouth once daily as needed for Anxiety for up to 90 days. HYDROCODONE 10 MG-ACETAMINOPHEN 325 * 120 * 0 04/24/2018 05/24/2018 Class: Print RX Route: ORAL Sig: Take 0.5-1 tablets by mouth every 6 hours as needed for up to 30 days. Earliest Fill Date: 04/24/18 DEXAMETHASONE 0.5 MG/5 ML ORAL ELIXIR 120 * 0 04/24/2018 05/01/2018 Sig: Swish for 5 minutes then spit out HYDROCODONE 10 MG-ACETAMINOPHEN 325 * 120 * 0 05/24/2018 06/23/2018 Class: Print RX Route: ORAL Sig: Take 0.5-1 tablets by mouth every 6 hours as needed for up to 30 days. Earliest Fill Date: 05/24/18 HYDROCODONE 10 MG-ACETAMINOPHEN 325 * 120 * 0 06/23/2018 07/23/2018 Class: Print RX Route: ORAL Sig: Take 0.5-1 tablets by mouth every 6 hours as needed for up to 30 days. Earliest Fill Date: 06/23/18 Medications Discontinued During This Encounter clobetasol (TEMOVATE) 0.05 % ointment 30 g 5 04/25/2017 04/24/2018 Sig: Apply to affected area twice daily. Use sparingly Disc: Reason for discontinue is not on file. meloxicam (MOBIC) 15 mg tablet 30 t* 1 02/06/2018 04/24/2018 Route: ORAL Sig: Take 0.5-1 tablets by mouth once daily. With food. As directed Disc: Reason for discontinue is not on file. mupirocin (BACTROBAN) 2 % ointment 30 g 0 05/02/2016 04/24/2018 Route: TOPICAL Sig: Apply 1 application to affected area three times daily. Location: torso or extremity wound as needed Disc: Reason for discontinue is not on file. loxapine (LOXITANE) 5 mg capsule 180 * 3 04/25/2017 04/24/2018 Route: ORAL Sig: Take 1 capsule by mouth twice daily. Disc: Reason for discontinue is not on file. ALPRAZolam (XANAX) 0.25 mg tablet 14 t* 0 01/23/2018 04/24/2018 Class: Print RX Route: ORAL Sig: Take 1 tablet by mouth once daily as needed for Anxiety for up to 90 days. Disc: Reason for discontinue is not on file. HYDROcodone-Acetaminophen (NORCO) 10* 120 * 0 12/23/2017 04/24/2018 Class: Print RX Route: ORAL Sig: Take 0.5-1 tablets by mouth every 6 hours as needed for up to 30 days. Earliest Fill Date: 12/23/17 Disc: Reason for discontinue is not on file. Magic Mouthwash ([place] [employer]) 1 Todd* 1 04/13/2018 04/24/2018 Sigm tetracycline +8million units nystatin +200mg hydrocortisone +480ml water. 1 tsp swish/swallow three times a day (1 PINT) Patient not taking: Reported on 04/24/2018 Disc: Lack of Efficacy dicyclomine (BENTYL) 10 mg capsule 40 c* 5 04/03/2017 04/24/2018 Route: ORAL Sig: Take 1 capsule by mouth before meals and at bedtime. As needed Disc: Reason for discontinue is not on file. Disposition: Return for As scheduled. Follow-up and Disposition History Recorded Encounter Status:Closed by RIOS VALLE MD on 05/07/18 CNOV Observed: 04/13/2018 Status: COMPLETED Source: [place] 9:20 AM [facility] REPOSITORY Office Visit (FAMPWS) DEE MCALLISTER ([id number]) 1955 F Date Time Provider Department 04/13/18 9:20 AM DARIEL BROOKS (ARUN) [place] During your visit today, we recorded the following information about you: Temperature Pulse Blood pressure Weight 97.3 degrees 76/minute 138/80 59.4 kg Dariel Brooks APRN.CNP 04/13/2018 9:24 AM Signed Chief Complaint No chief complaint on file. HPI Dee Mcallister is a 63 year old female who presents here today for Above Complaints.. Patient presents to the office for complaints of continued pain in the mouth as a result of mouth sores. She has been seen in the office numerous times over the past few months for this complaint. Has tried Abreva with no improvement. Has had a culture of the lower lip that showed small amount of gram positive cocci. She was treated with oral Bactrim DS. HSV was negative. Did not get much improvement with this treatment. She saw Pinky BainlogARUN govea that gave her lidocaine for her aphthous ulcer, dexamethasone to swish and spit. States that her lip and inner mouth will burn with eating. Has gotten a little better. She states that her lip has improved but is still pain. Subjective fever the other day. No chills. Has an enlarged lymph node in the right cervical area that has been present since January. No weight loss. Does have a dentist appointment in April. Past medical history, appointments, medications, allergies reviewed. 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 suspected by abscence of pulse and not filling on Steve's test - Unspecified essential hypertension - Vitamin D Deficiency 05/11/2010 Previous Surgical History PAST SURGICAL HISTORY Procedure Laterality Date - COLONOSCOP W/ OR W/O [facility] SPEC 05/17/07 - FNA WITH IMAGING 01/09/13 U/S FNA bilateral thyroid nodules - LAPAROSCOPIC HEMICOLECTOMY 07/02/07 TRANSVERSE - PAST SURGICAL HISTORY OF 12/24/08 Angioplasty - REMOVAL OF TONSILS,<13 Y/O age 21 Tonsillectomy alone - TOTAL ABDOM HYSTERECTOMY 09/07/1995 Hysterectomy, DRAKE, BSO, appendectomy for benign reason Family History FAMILY HISTORY Problem Relation Age of Onset - Ischemic Heart Disease Father - other (Prediabetic) Mother 86 HGA1C 5.5; fingerstick glucose 122 in am noted - Cancer Brother throat cancer; metastasized to lymph nodes Patient Allergies ALLERGIES No Known Allergies Current Medications Current Outpatient Prescriptions on File Prior to Visit: dexamethasone (DECADRON) 0.5 mg/5 mL elixir Swish for 5 minutes then spit out lidocaine viscous (LIDOCAINE VISCOUS) 2 % solution Take 5 mL by mouth as needed. meloxicam (MOBIC) 15 mg tablet Take 0.5-1 tablets by mouth once daily. With food. As directed HYDROcodone-Acetaminophen (NORCO) 10-325 mg per tablet Take 0.5-1 tablets by mouth every 6 hours as needed for up to 30 days.Earliest Fill Date: 01/23/18 multivitamin tablet Take 1 tablet by mouth once daily. ALPRAZolam (XANAX) 0.25 mg tablet Take 1 tablet by mouth once daily as needed for Anxiety for up to 90 days. HYDROcodone-Acetaminophen (NORCO) 10-325 mg per tablet Take 0.5-1 tablets by mouth every 6 hours as needed for up to 30 days.Earliest Fill Date: 02/22/18 HYDROcodone-Acetaminophen (NORCO) 10-325 mg per tablet Take 0.5-1 tablets by mouth every 6 hours as needed for up to 30 days.Earliest Fill Date: 03/24/18 Clobetasol Propionate (TEMOVATE) 0.05 % external solution apply as directed once daily as needed lisinopril (PRINIVIL) 5 mg tablet Take 1 tablet by mouth once daily. lidocaine (LIDODERM) 5 % Apply 1 Patch topically as directed to affected area(s), up to 3 patches at a time. Apply for twelve hours per day to affected area. gabapentin (NEURONTIN) 300 mg capsule Take 1 capsule by mouth three times daily. estradiol (ESTRACE) 1 mg tablet Take 1 tablet by mouth once daily. Omeprazole 40 mg capsule Take 1 capsule by mouth once daily. HYDROcodone-Acetaminophen (NORCO) 10-325 mg per tablet Take 0.5-1 tablets by mouth every 6 hours as needed for up to 30 days.Earliest Fill Date: 11/23/17 HYDROcodone-Acetaminophen (NORCO) 10-325 mg per tablet Take 0.5-1 tablets by mouth every 6 hours as needed for up to 30 days.Earliest Fill Date: 12/23/17 metaxalone (SKELAXIN) 800 mg tablet Take 0.5-1 tablets by mouth twice daily. loxapine (LOXITANE) 5 mg capsule Take 1 capsule by mouth twice daily. clobetasol (TEMOVATE) 0.05 % ointment Apply to affected area twice daily. Use sparingly dicyclomine (BENTYL) 10 mg capsule Take 1 capsule by mouth before meals and at bedtime. As needed fluticasone (FLONASE) 50 mcg/actuation nasal spray Use 2 Sprays in each nostril once daily as needed. USE BEFORE LYING DOWN FOR BED. mupirocin (BACTROBAN) 2 % ointment Apply 1 application to affected area three times daily. Location: torso or extremity wound as needed aspirin 325 mg ORAL tablet Take one(1) tablet daily. No current facility-administered medications on file prior to visit. Social History Social History Marital status: Spouse name: Years of education: Number of children: 3 Occupational History Occupation Employer Comment [employer] Social History Main Topics Smoking status: Former Smoker Packs/day: 0.00 Years: 0.00 Quit date: 11/04/2006 Smokeless tobacco: Never Used Alcohol use: Yes Comment: rarely Drug use: No Social History Narrative 11/10/16--son REVIEW OF SYSTEMS: as above ? Reviewed relevant PMHx, PSHx, Social Hx, current medications and allergies. EXAM: BP 138/80 Pulse 76 Temp 36.3 ?C (97.3 ?F) (Tympanic) Wt 59.4 kg (131 lb) BMI 26.46 kg/m? General Appearance: Well appearing, alert, in no acute distress, well-hydrated, well nourished.. Skin: Lower lip, left side has a lesion, purple appearance without drainage. Eyes: Anicteric sclera. Pupils are equally round and reactive to light. Extraocular movements are intact. . Ears: External ears normal, canals clear. Oropharynx: Positive findings: aphthous ulceration on the right inner cheek, also on the right side of her tongue, bottom side. Poor dentition, gums are receding. Neck: Positive findings: submaxillary adenopathy right side. Health Maintenance List BLOOD PRESSURE CONTROLLED due on 02/13/1974 MAMMOGRAM due on 01/05/2018 INFLUENZA(1) due on 04/21/2018 ANNUAL PCP TEAM CHRONIC DISEASE VISIT due on 01/23/2019 DIABETES SCREEN due on 10/12/2020 DTAP,TDAP,TD(2 - Td) due on 07/02/2021 COLORECTAL CANCER SCREENING,SEE MODIFIER due on 03/03/2022 LIPID SCREEN due on 04/06/2023 HEPATITIS C SCREENING Completed Data reviewed Component Latest Ref Rng AND Units 03/27/2018 03/27/2018 03/27/2018 3:02 PM 3:02 PM 3:02 PM Specimen Request Swab Smear Result Few (A) . . . No Polymorphonuclear Leukocytes Culture Many . . . Specimen Source Lesion Herpes Simplex Virus Type 1, HDA Negative for Herpes Simplex virus Type 1 by Molecular Detection. Herpes Simplex Virus Type 2, HDA Negative for Herpes Simplex virus Type 2 by Molecular Detection. Varicella Zoster Virus, HDA Negative for Varicella Zoster virus by Molecular Detection. ASSESSMENT/PLAN: 1. Aphthous ulcer - ICD9: 528.2, ICD10: K12.0 (primary diagnosis) - Try magic mouth solution. - COMPOUNDED PRESCRIPTION 2. Lip lesion - ICD9: 528.5, ICD10: K13.0 - Has not resolved. Get second opinion with dermatology. - CONSULT TO DERMATOLOGY 3. Adenopathy - ICD9: 785.6, ICD10: R59.1 - Stable finding, following with PCP on April 24 for this finding. Continue with plan to see dentistry. Follow up as needed. Dariel Brooks APRN.COMMERCIAL ESTIMATOR Referring Provider: SELF [[id number]] Allergies As of Date: 04/13/2018 (No Known Allergies) Date Reviewed: 04/13/2018 Reviewed by: Selena De La Torre [facility] - Fully Assessed Reason for Visit: Mouth/Lip Problem [68] Primary Visit Diagnosis:Aphthous ulcer [K12.0] Other Visit Diagnoses:Lip lesion [K13.0] Adenopathy [R59.1] Order(s):Magic Mouthwash ([place] [employer])8gm tetracycline +8million units nystatin +200mg hydrocortisone +480ml water. 1 tsp swish/swallow three times a day (1 PINT)Disp: 1 BottleRfl: 1 CONSULT TO DERMATOLOGY [5099] Order #: [id number]: 1 Prescriptions as of 04/13/2018 Sig: COMPOUNDED PRESCRIPTION 8gm tetracycline +8million un* MELOXICAM 15 MG TABLET Take 0.5-1 tablets by mouth o* HYDROCODONE 10 MG-ACETAMINOPH* Take 0.5-1 tablets by mouth e* MULTIVITAMIN TABLET Take 1 tablet by mouth once d* ALPRAZOLAM 0.25 MG TABLET Take 1 tablet by mouth once d* HYDROCODONE 10 MG-ACETAMINOPH* Take 0.5-1 tablets by mouth e* HYDROCODONE 10 MG-ACETAMINOPH* Take 0.5-1 tablets by mouth e* CLOBETASOL 0.05 % SCALP SOLUT* apply as directed once daily * LISINOPRIL 5 MG TABLET Take 1 tablet by mouth once d* LIDOCAINE 5 % TOPICAL PATCH Apply 1 Patch topically as di* GABAPENTIN 300 MG CAPSULE Take 1 capsule by mouth three* ESTRADIOL 1 MG TABLET Take 1 tablet by mouth once d* OMEPRAZOLE 40 MG CAPSULE,BITA* Take 1 capsule by mouth once * HYDROCODONE 10 MG-ACETAMINOPH* Take 0.5-1 tablets by mouth e* HYDROCODONE 10 MG-ACETAMINOPH* Take 0.5-1 tablets by mouth e* METAXALONE 800 MG TABLET Take 0.5-1 tablets by mouth t* LOXAPINE SUCCINATE 5 MG CAPSU* Take 1 capsule by mouth twice* CLOBETASOL 0.05 % TOPICAL OIN* Apply to affected area twice* DICYCLOMINE 10 MG CAPSULE Take 1 capsule by mouth befor* FLUTICASONE 50 MCG/ACTUATION * Use 2 Sprays in each nostril * MUPIROCIN 2 % TOPICAL OINTMENT Apply 1 application to affect* ASPIRIN 325 MG TABLET Take one(1) tablet daily. Problem List As Of Date 04/13/2018 Noted Resolved PSORIAS RELATED DIS NEC [L40.8] More... ALLERGIC RHINITIS NOS [J30.9] More... Generalized OA [M15.9] Degeneration of lumbar or lumbosacral intervert* Dyslipidemia (high LDL; low HDL) [E78.5] OSTEOPOROSIS NOS [M81.0] IRRITABLE COLON [K58.9] GENERALIZED ANXIETY DIS [F41.1] DEPRESSIVE DISORDER NEC [F32.9] Essential hypertension [I10] More... 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 1 tsp swish/swallow three times a day (1 PINT) Medications Discontinued During This Encounter dexamethasone (DECADRON) 0.5 mg/5 mL* 120 * 0 04/06/2018 04/13/2018 Sig: Swish for 5 minutes then spit out Disc: Reason for discontinue is not on file. lidocaine viscous (LIDOCAINE VISCOUS* 100 * 0 04/06/2018 04/13/2018 Route: ORAL Sig: Take 5 mL by mouth as needed. Disc: Reason for discontinue is not on file. Disposition: Return if symptoms worsen or fail to improve. Follow-up and Disposition History Recorded Encounter Status:Closed by DARIEL BROOKS CNP on 04/13/18 PROGRESS Observed: 04/13/2018 Status: COMPLETED Source: [place] 9:00 AM [facility] REPOSITORY [facility] ID: [id number] Author: Dariel Bates) Todd Service: (none) Author Type: Nurse Practitioner Type: Progress Notes Filed: 04/13/2018 9:24 AM Note Text: Chief Complaint No chief complaint on file. ZAKIA Mcallister is a 63 year old female who presents here today for Above Complaints.. Patient presents to the office for complaints of continued pain in the mouth as a result of mouth sores. She has been seen in the office numerous times over the past few months for this complaint. Has tried Abreva with no improvement. Has had a culture of the lower lip that showed small amount of gram positive cocci. She was treated with oral Bactrim DS. HSV was negative. Did not get much improvement with this treatment. She saw Pinky Batista CNP that gave her lidocaine for her aphthous ulcer, dexamethasone to swish and spit. States that her lip and inner mouth will burn with eating. Has gotten a little better. She states that her lip has improved but is still pain. Subjective fever the other day. No chills. Has an enlarged lymph node in the right cervical area that has been present since January. No weight loss. Does have a dentist appointment in April. Past medical history, appointments, medications, allergies reviewed. 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 suspected by abscence of pulse and not filling on Steve's test - Unspecified essential hypertension - Vitamin D Deficiency 05/11/2010 Previous Surgical History PAST SURGICAL HISTORY Procedure Laterality Date - COLONOSCOP W/ OR W/O [facility] SPEC 05/17/07 - FNA WITH IMAGING 01/09/13 U/S FNA bilateral thyroid nodules - LAPAROSCOPIC HEMICOLECTOMY 07/02/07 TRANSVERSE - PAST SURGICAL HISTORY OF 12/24/08 Angioplasty - REMOVAL OF TONSILS,<13 Y/O age 21 Tonsillectomy alone - TOTAL ABDOM HYSTERECTOMY 09/07/1995 Hysterectomy, DRAKE, BSO, appendectomy for benign reason Family History FAMILY HISTORY Problem Relation Age of Onset - Ischemic Heart Disease Father - other (Prediabetic) Mother 86 HGA1C 5.5; fingerstick glucose 122 in am noted - Cancer Brother throat cancer; metastasized to lymph nodes Patient Allergies ALLERGIES No Known Allergies Current Medications Current Outpatient Prescriptions on File Prior to Visit: dexamethasone (DECADRON) 0.5 mg/5 mL elixir Swish for 5 minutes then spit out lidocaine viscous (LIDOCAINE VISCOUS) 2 % solution Take 5 mL by mouth as needed. meloxicam (MOBIC) 15 mg tablet Take 0.5-1 tablets by mouth once daily. With food. As directed HYDROcodone-Acetaminophen (NORCO) 10-325 mg per tablet Take 0.5-1 tablets by mouth every 6 hours as needed for up to 30 days.Earliest Fill Date: 01/23/18 multivitamin tablet Take 1 tablet by mouth once daily. ALPRAZolam (XANAX) 0.25 mg tablet Take 1 tablet by mouth once daily as needed for Anxiety for up to 90 days. HYDROcodone-Acetaminophen (NORCO) 10-325 mg per tablet Take 0.5-1 tablets by mouth every 6 hours as needed for up to 30 days.Earliest Fill Date: 02/22/18 HYDROcodone-Acetaminophen (NORCO) 10-325 mg per tablet Take 0.5-1 tablets by mouth every 6 hours as needed for up to 30 days.Earliest Fill Date: 03/24/18 Clobetasol Propionate (TEMOVATE) 0.05 % external solution apply as directed once daily as needed lisinopril (PRINIVIL) 5 mg tablet Take 1 tablet by mouth once daily. lidocaine (LIDODERM) 5 % Apply 1 Patch topically as directed to affected area(s), up to 3 patches at a time. Apply for twelve hours per day to affected area. gabapentin (NEURONTIN) 300 mg capsule Take 1 capsule by mouth three times daily. estradiol (ESTRACE) 1 mg tablet Take 1 tablet by mouth once daily. Omeprazole 40 mg capsule Take 1 capsule by mouth once daily. HYDROcodone-Acetaminophen (NORCO) 10-325 mg per tablet Take 0.5-1 tablets by mouth every 6 hours as needed for up to 30 days.Earliest Fill Date: 11/23/17 HYDROcodone-Acetaminophen (NORCO) 10-325 mg per tablet Take 0.5-1 tablets by mouth every 6 hours as needed for up to 30 days.Earliest Fill Date: 12/23/17 metaxalone (SKELAXIN) 800 mg tablet Take 0.5-1 tablets by mouth twice daily. loxapine (LOXITANE) 5 mg capsule Take 1 capsule by mouth twice daily. clobetasol (TEMOVATE) 0.05 % ointment Apply to affected area twice daily. Use sparingly dicyclomine (BENTYL) 10 mg capsule Take 1 capsule by mouth before meals and at bedtime. As needed fluticasone (FLONASE) 50 mcg/actuation nasal spray Use 2 Sprays in each nostril once daily as needed. USE BEFORE LYING DOWN FOR BED. mupirocin (BACTROBAN) 2 % ointment Apply 1 application to affected area three times daily. Location: torso or extremity wound as needed aspirin 325 mg ORAL tablet Take one(1) tablet daily. No current facility-administered medications on file prior to visit. Social History Social History Marital status: Spouse name: Years of education: Number of children: 3 Occupational History Occupation Employer Comment [employer] Social History Main Topics Smoking status: Former Smoker Packs/day: 0.00 Years: 0.00 Quit date: 11/04/2006 Smokeless tobacco: Never Used Alcohol use: Yes Comment: rarely Drug use: No Social History Narrative 11/10/16--son REVIEW OF SYSTEMS: as above ? Reviewed relevant PMHx, PSHx, Social Hx, current medications and allergies. EXAM: BP 138/80 Pulse 76 Temp 36.3 ?C (97.3 ?F) (Tympanic) Wt 59.4 kg (131 lb) BMI 26.46 kg/m? General Appearance: Well appearing, alert, in no acute distress, well-hydrated, well nourished.. Skin: Lower lip, left side has a lesion, purple appearance without drainage. Eyes: Anicteric sclera. Pupils are equally round and reactive to light. Extraocular movements are intact. . Ears: External ears normal, canals clear. Oropharynx: Positive findings: aphthous ulceration on the right inner cheek, also on the right side of her tongue, bottom side. Poor dentition, gums are receding. Neck: Positive findings: submaxillary adenopathy right side. Health Maintenance List BLOOD PRESSURE CONTROLLED due on 02/13/1974 MAMMOGRAM due on 01/05/2018 INFLUENZA(1) due on 04/21/2018 ANNUAL PCP TEAM CHRONIC DISEASE VISIT due on 01/23/2019 DIABETES SCREEN due on 10/12/2020 DTAP,TDAP,TD(2 - Td) due on 07/02/2021 COLORECTAL CANCER SCREENING,SEE MODIFIER due on 03/03/2022 LIPID SCREEN due on 04/06/2023 HEPATITIS C SCREENING Completed Data reviewed Component Latest Ref Rng AND Units 03/27/2018 03/27/2018 03/27/2018 3:02 PM 3:02 PM 3:02 PM Specimen Request Swab Smear Result Few (A) . . . No Polymorphonuclear Leukocytes Culture Many . . . Specimen Source Lesion Herpes Simplex Virus Type 1, HDA Negative for Herpes Simplex virus Type 1 by Molecular Detection. Herpes Simplex Virus Type 2, HDA Negative for Herpes Simplex virus Type 2 by Molecular Detection. Varicella Zoster Virus, HDA Negative for Varicella Zoster virus by Molecular Detection. ASSESSMENT/PLAN: 1. Aphthous ulcer - ICD9: 528.2, ICD10: K12.0 (primary diagnosis) - Try magic mouth solution. - COMPOUNDED PRESCRIPTION 2. Lip lesion - ICD9: 528.5, ICD10: K13.0 - Has not resolved. Get second opinion with dermatology. - CONSULT TO DERMATOLOGY 3. Adenopathy - ICD9: 785.6, ICD10: R59.1 - Stable finding, following with PCP on April 24 for this finding. Continue with plan to see dentistry. Follow up as needed. Dariel Brooks APRN.COMMERCIAL ESTIMATOR LIPID PANEL, BASIC Collected: 04/06/2018 Status: F Source: [place] 10:11 AM [facility] REPOSITORY TYPE CODE TESTS RESULT OUT OF REFERENCE UNITS RANGE LAB CHOL <200 mg/dL Cholesterol 179 Result Comment: <200 mg/dL, Desirable 200-239 mg/dL, Borderline high >239 mg/dL, High LAB TRIGLY <150 mg/dL Triglyceride High 165 Result Comment: <150 mg/dL, Normal 150-199 mg/dL, Borderline high 200-499 mg/dL, High >499 mg/dL, Very high LAB HDL >39 mg/dL HDL-Cholesterol 42 Result Comment: 40-59 mg/dL, Acceptable >59 mg/dL, High: Negative risk factor for coronary heart disease <40 mg/dL, Low: Positive risk factor for coronary heart disease LAB LDL <100 mg/dL LDL-Cholesterol High 104 Result Comment: <100 mg/dL, Optimal 100-129 mg/dL, Near optimal/above optimal 130-159 mg/dL, Borderline high 160-189 mg/dL, High >189 mg/dL, Very high Secondary prevention optimal LDL Cholesterol levels are recommended to be < 70 mg/dL LAB NONHDL <130 mg/dL Non HDL High Cholesterol 137 Result Comment: <130 mg/dL, Optimal 130-159 mg/dL, Near optimal/above optimal 160-189 mg/dL, Borderline high 190-219 mg/dL, High >219 mg/dL, Very high Secondary prevention optimal non HDL Cholesterol levels are recommended to be < 100 mg/dL LAB FT hrs Fasting Time 15 LAB VLDL <30 mg/dL High VLDL Cholesterol 33 LAB TCHDL <5.10 TC:HDL Ratio 4.26 LAB LDLHDL <2.54 LDL:HDL Ratio 2.48 Result Comment: Reference: 1. National Cholesterol Education Program ATP III Guideline At-A-Glance Quick Desk Reference: National Heart, Lung, and Blood [place]. National Institutes of Health. 2001: NIH Publication No. 01-3305. 2. An International Atherosclerosis Society position paper: global recommendations for the management of dyslipidemia: executive summary, Atherosclerosis. 2014: 232(2):410-413. Performed By: #### LIPB #### [facility] [address] [id number] PROGRESS Observed: 04/06/2018 Status: COMPLETED Source: [place] 9:23 AM [facility] REPOSITORY HNO ID: [id number] Author: Trina Bates) Podlogar Service: (none) Author Type: Nurse Practitioner Type: Progress Notes Filed: 04/06/2018 2:40 PM Note Text: 04/06/2018 Patient presents with: Recheck: for lip and mouth sores, not getting better SUBJECTIVE: This is a 63 year old that is here today for Above Complaints. For the last month has had left and right lower lower lip sore and sores inside mouth. Was treated with bactrim PO. HSV culture completed and wound culture obtained. See office note from 03/27/2018. See results below. Since that time has gotten a little better, on her lip. However she continues to have sores in mouth. Lip sores are described as being itchy and inside sores are painful. Denies weight loss, fever, chills, increased eating of acidici foods or drinks, changing lotions, lipsticks, toothpastes, or mouthwashes. Component Latest Ref Rng AND Units 03/27/2018 03/27/2018 03/27/2018 3:02 PM 3:02 PM 3:02 PM Specimen Request Swab Smear Result Few (A) . . . No Polymorphonuclear Leukocytes Culture Many . . . Specimen Source Lesion Herpes Simplex Virus Type 1, HDA Negative for Herpes Simplex virus Type 1 by Molecular Detection. Herpes Simplex Virus Type 2, HDA Negative for Herpes Simplex virus Type 2 by Molecular Detection. Varicella Zoster Virus, HDA Negative for Varicella Zoster virus by Molecular Detection. 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 MEDICATIONS Current Outpatient Prescriptions: sulfamethoxazole-trimethoprim (BACTRIM DS) 800-160 mg per tablet Take 1 tablet by mouth twice daily for 10 days. meloxicam (MOBIC) 15 mg tablet Take 0.5-1 tablets by mouth once daily. With food. As directed HYDROcodone-Acetaminophen (NORCO) 10-325 mg per tablet Take 0.5-1 tablets by mouth every 6 hours as needed for up to 30 days.Earliest Fill Date: 01/23/18 multivitamin tablet Take 1 tablet by mouth once daily. ALPRAZolam (XANAX) 0.25 mg tablet Take 1 tablet by mouth once daily as needed for Anxiety for up to 90 days. HYDROcodone-Acetaminophen (NORCO) 10-325 mg per tablet Take 0.5-1 tablets by mouth every 6 hours as needed for up to 30 days.Earliest Fill Date: 02/22/18 HYDROcodone-Acetaminophen (NORCO) 10-325 mg per tablet Take 0.5-1 tablets by mouth every 6 hours as needed for up to 30 days.Earliest Fill Date: 03/24/18 Clobetasol Propionate (TEMOVATE) 0.05 % external solution apply as directed once daily as needed lisinopril (PRINIVIL) 5 mg tablet Take 1 tablet by mouth once daily. lidocaine (LIDODERM) 5 % Apply 1 Patch topically as directed to affected area(s), up to 3 patches at a time. Apply for twelve hours per day to affected area. gabapentin (NEURONTIN) 300 mg capsule Take 1 capsule by mouth three times daily. estradiol (ESTRACE) 1 mg tablet Take 1 tablet by mouth once daily. Omeprazole 40 mg capsule Take 1 capsule by mouth once daily. HYDROcodone-Acetaminophen (NORCO) 10-325 mg per tablet Take 0.5-1 tablets by mouth every 6 hours as needed for up to 30 days.Earliest Fill Date: 11/23/17 HYDROcodone-Acetaminophen (NORCO) 10-325 mg per tablet Take 0.5-1 tablets by mouth every 6 hours as needed for up to 30 days.Earliest Fill Date: 12/23/17 metaxalone (SKELAXIN) 800 mg tablet Take 0.5-1 tablets by mouth twice daily. loxapine (LOXITANE) 5 mg capsule Take 1 capsule by mouth twice daily. clobetasol (TEMOVATE) 0.05 % ointment Apply to affected area twice daily. Use sparingly fluticasone (FLONASE) 50 mcg/actuation nasal spray Use 2 Sprays in each nostril once daily as needed. USE BEFORE LYING DOWN FOR BED. mupirocin (BACTROBAN) 2 % ointment Apply 1 application to affected area three times daily. Location: torso or extremity wound as needed dicyclomine (BENTYL) 10 mg capsule Take 1 capsule by mouth before meals and at bedtime. As needed aspirin 325 mg ORAL tablet Take one(1) tablet daily. No current facility-administered medications for this visit. Medications and allergies reviewed by this provider. SOCIAL HISTORY Social History Marital status: Spouse name: Years of education: Number of children: 3 Occupational History Occupation Employer Comment [employer] Social History Main Topics Smoking status: Former Smoker Packs/day: 0.00 Years: 0.00 Quit date: 11/04/2006 Smokeless tobacco: Never Used Alcohol use: Yes Comment: rarely Drug use: No Social History Narrative 11/10/16--son REVIEW OF SYSTEMS All other reviewed and negative other than HPI. OBJECTIVE: BP 136/82 (BP Site: Left Arm, BP Position: Sitting, BP Cuff Size: Regular Adult) Pulse 68 Temp 36.6 ?C (97.8 ?F) Resp 16 Wt 59.4 kg (131 lb) BMI 26.46 kg/m? . Vital signs reviewed by this provider. APPEARANCE Well appearing, alert, in no acute distress, well-hydrated, well nourished. Oropharynx: Buccal mucosa bilateral lower with white centered lesions with surrounding erythema. Teeth in satisfactory repair. Small amount of white coating to back of tongue NECK Positive findings: submaxillary adenopathy- bilaterally HEART RRR with normal S1 and S2, no murmurs, no gallops, no JVD appreciated LUNG clear to auscultation SKIN Bottom lip with scabbing to left lower aspect. Right lower aspect with white-centered lesions ASSESSMENT/PLAN: 1. Aphthous ulcer - ICD9: 528.2, ICD10: K12.0 - lesions consistent with aphthous ulcers - no red flag exam findings - red flag symptoms discussed - DEXAMETHASONE 0.5 MG/5 ML ORAL ELIXIR- instructed on usage - LIDOCAINE 2 % MUCOSAL SOLUTION - return to office in 1 week if not improving, to ER with discussed red flag symptoms 2. Adenopathy - ICD9: 785.6, ICD10: R59.1 - patient reports she has had this for some time and Dr. Valle is watching - has follow-up on April [address] Bry Mena Podlogar, FLAT LOCK MACHINE OPERATOR.COMMERCIAL ESTIMATOR Prescription instructions reviewed with patient as applicable. Patient advised if symptoms do not improve or if symptoms worsen sooner, to contact their primary care physician. Potential red flag symptoms discussed with the patient. Reviewed appropriate action plan to take if red flag symptoms occur. Patient agreeable to treatment plan. CNOV Observed: 04/06/2018 Status: COMPLETED Source: [place] 9:00 AM [facility] REPOSITORY Office Visit (FAMPWS) DEE MCALLISTER ([id number]) 1955 F Date Time Provider Department 04/06/18 9:00 AM TRINA BATISTA (NOHEMY BARNES During your visit today, we recorded the following information about you: Temperature Pulse Respiration Blood pressure 97.8 degrees 68/minute 16/minute 136/82 Weight 59.4 kg Trina Batista APRN.CNP 04/06/2018 2:40 PM Signed 04/06/2018 Patient presents with: Recheck: for lip and mouth sores, not getting better SUBJECTIVE: This is a 63 year old that is here today for Above Complaints. For the last month has had left and right lower lower lip sore and sores inside mouth. Was treated with bactrim PO. HSV culture completed and wound culture obtained. See office note from 03/27/2018. See results below. Since that time has gotten a little better, on her lip. However she continues to have sores in mouth. Lip sores are described as being itchy and inside sores are painful. Denies weight loss, fever, chills, increased eating of acidici foods or drinks, changing lotions, lipsticks, toothpastes, or mouthwashes. Component Latest Ref Rng AND Units 03/27/2018 03/27/2018 03/27/2018 3:02 PM 3:02 PM 3:02 PM Specimen Request Swab Smear Result Few (A) . . . No Polymorphonuclear Leukocytes Culture Many . . . Specimen Source Lesion Herpes Simplex Virus Type 1, HDA Negative for Herpes Simplex virus Type 1 by Molecular Detection. Herpes Simplex Virus Type 2, HDA Negative for Herpes Simplex virus Type 2 by Molecular Detection. Varicella Zoster Virus, HDA Negative for Varicella Zoster virus by Molecular Detection. 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 MEDICATIONS Current Outpatient Prescriptions: sulfamethoxazole-trimethoprim (BACTRIM DS) 800-160 mg per tablet Take 1 tablet by mouth twice daily for 10 days. meloxicam (MOBIC) 15 mg tablet Take 0.5-1 tablets by mouth once daily. With food. As directed HYDROcodone-Acetaminophen (NORCO) 10-325 mg per tablet Take 0.5-1 tablets by mouth every 6 hours as needed for up to 30 days.Earliest Fill Date: 01/23/18 multivitamin tablet Take 1 tablet by mouth once daily. ALPRAZolam (XANAX) 0.25 mg tablet Take 1 tablet by mouth once daily as needed for Anxiety for up to 90 days. HYDROcodone-Acetaminophen (NORCO) 10-325 mg per tablet Take 0.5-1 tablets by mouth every 6 hours as needed for up to 30 days.Earliest Fill Date: 02/22/18 HYDROcodone-Acetaminophen (NORCO) 10-325 mg per tablet Take 0.5-1 tablets by mouth every 6 hours as needed for up to 30 days.Earliest Fill Date: 03/24/18 Clobetasol Propionate (TEMOVATE) 0.05 % external solution apply as directed once daily as needed lisinopril (PRINIVIL) 5 mg tablet Take 1 tablet by mouth once daily. lidocaine (LIDODERM) 5 % Apply 1 Patch topically as directed to affected area(s), up to 3 patches at a time. Apply for twelve hours per day to affected area. gabapentin (NEURONTIN) 300 mg capsule Take 1 capsule by mouth three times daily. estradiol (ESTRACE) 1 mg tablet Take 1 tablet by mouth once daily. Omeprazole 40 mg capsule Take 1 capsule by mouth once daily. HYDROcodone-Acetaminophen (NORCO) 10-325 mg per tablet Take 0.5-1 tablets by mouth every 6 hours as needed for up to 30 days.Earliest Fill Date: 11/23/17 HYDROcodone-Acetaminophen (NORCO) 10-325 mg per tablet Take 0.5-1 tablets by mouth every 6 hours as needed for up to 30 days.Earliest Fill Date: 12/23/17 metaxalone (SKELAXIN) 800 mg tablet Take 0.5-1 tablets by mouth twice daily. loxapine (LOXITANE) 5 mg capsule Take 1 capsule by mouth twice daily. clobetasol (TEMOVATE) 0.05 % ointment Apply to affected area twice daily. Use sparingly fluticasone (FLONASE) 50 mcg/actuation nasal spray Use 2 Sprays in each nostril once daily as needed. USE BEFORE LYING DOWN FOR BED. mupirocin (BACTROBAN) 2 % ointment Apply 1 application to affected area three times daily. Location: torso or extremity wound as needed dicyclomine (BENTYL) 10 mg capsule Take 1 capsule by mouth before meals and at bedtime. As needed aspirin 325 mg ORAL tablet Take one(1) tablet daily. No current facility-administered medications for this visit. Medications and allergies reviewed by this provider. SOCIAL HISTORY Social History Marital status: Spouse name: Years of education: Number of children: 3 Occupational History Occupation Employer Comment [employer] Social History Main Topics Smoking status: Former Smoker Packs/day: 0.00 Years: 0.00 Quit date: 11/04/2006 Smokeless tobacco: Never Used Alcohol use: Yes Comment: rarely Drug use: No Social History Narrative 11/10/16--son REVIEW OF SYSTEMS All other reviewed and negative other than HPI. OBJECTIVE: BP 136/82 (BP Site: Left Arm, BP Position: Sitting, BP Cuff Size: Regular Adult) Pulse 68 Temp 36.6 ?C (97.8 ?F) Resp 16 Wt 59.4 kg (131 lb) BMI 26.46 kg/m? . Vital signs reviewed by this provider. APPEARANCE Well appearing, alert, in no acute distress, well- hydrated, well nourished. Oropharynx: Buccal mucosa bilateral lower with white centered lesions with surrounding erythema. Teeth in satisfactory repair. Small amount of white coating to back of tongue NECK Positive findings: submaxillary adenopathy- bilaterally HEART RRR with normal S1 and S2, no murmurs, no gallops, no JVD appreciated LUNG clear to auscultation SKIN Bottom lip with scabbing to left lower aspect. Right lower aspect with white-centered lesions ASSESSMENT/PLAN: 1. Aphthous ulcer - ICD9: 528.2, ICD10: K12.0 - lesions consistent with aphthous ulcers - no red flag exam findings - red flag symptoms discussed - DEXAMETHASONE 0.5 MG/5 ML ORAL ELIXIR- instructed on usage - LIDOCAINE 2 % MUCOSAL SOLUTION - return to office in 1 week if not improving, to ER with discussed red flag symptoms 2. Adenopathy - ICD9: 785.6, ICD10: R59.1 - patient reports she has had this for some time and Dr. Valle is watching - has follow-up on April [address] Bry Batitsa APRN.COMMERCIAL ESTIMATOR Prescription instructions reviewed with patient as applicable. Patient advised if symptoms do not improve or if symptoms worsen sooner, to contact their primary care physician. Potential red flag symptoms discussed with the patient. Reviewed appropriate action plan to take if red flag symptoms occur. Patient agreeable to treatment plan. Trina Batista APRN.CNP 04/06/2018 9:51 AM Signed Aphthous ulcers Referring Provider: SELF [[id number]] Allergies As of Date: 04/06/2018 (No Known Allergies) Date Reviewed: 04/06/2018 Reviewed by: Saray Sweet LPN - Fully Assessed Reason for Visit: Recheck [92] Cmt: for lip and mouth sores, not getting better Primary Visit Diagnosis:Aphthous ulcer [K12.0] Other Visit Diagnosis:Adenopathy [R59.1] Order(s):dexamethasone (DECADRON) 0.5 mg/5 mL elixirSwish for 5 minutes then spit outDisp: 120 mLRfl: 0 lidocaine viscous (LIDOCAINE VISCOUS) 2 % solutionTake 5 mL by mouth as needed.Disp: 100 mLRfl: 0 Prescriptions as of 04/06/2018 Sig: SULFAMETHOXAZOLE 800 MG-TRIME* Take 1 tablet by mouth twice * MELOXICAM 15 MG TABLET Take 0.5-1 tablets by mouth o* HYDROCODONE 10 MG-ACETAMINOPH* Take 0.5-1 tablets by mouth e* MULTIVITAMIN TABLET Take 1 tablet by mouth once d* ALPRAZOLAM 0.25 MG TABLET Take 1 tablet by mouth once d* HYDROCODONE 10 MG-ACETAMINOPH* Take 0.5-1 tablets by mouth e* HYDROCODONE 10 MG-ACETAMINOPH* Take 0.5-1 tablets by mouth e* CLOBETASOL 0.05 % SCALP SOLUT* apply as directed once daily * LISINOPRIL 5 MG TABLET Take 1 tablet by mouth once d* LIDOCAINE 5 % TOPICAL PATCH Apply 1 Patch topically as di* GABAPENTIN 300 MG CAPSULE Take 1 capsule by mouth three* ESTRADIOL 1 MG TABLET Take 1 tablet by mouth once d* OMEPRAZOLE 40 MG CAPSULE,BITA* Take 1 capsule by mouth once * HYDROCODONE 10 MG-ACETAMINOPH* Take 0.5-1 tablets by mouth e* HYDROCODONE 10 MG-ACETAMINOPH* Take 0.5-1 tablets by mouth e* METAXALONE 800 MG TABLET Take 0.5-1 tablets by mouth t* LOXAPINE SUCCINATE 5 MG CAPSU* Take 1 capsule by mouth twice* CLOBETASOL 0.05 % TOPICAL OIN* Apply to affected area twice* FLUTICASONE 50 MCG/ACTUATION * Use 2 Sprays in each nostril * MUPIROCIN 2 % TOPICAL OINTMENT Apply 1 application to affect* DEXAMETHASONE 0.5 MG/5 ML ORA* Swish for 5 minutes then spit* LIDOCAINE 2 % MUCOSAL SOLUTION Take 5 mL by mouth as needed. DICYCLOMINE 10 MG CAPSULE Take 1 capsule by mouth befor* ASPIRIN 325 MG TABLET Take one(1) tablet daily. Problem List As Of Date 04/06/2018 Noted Resolved PSORIAS RELATED DIS NEC [L40.8] More... ALLERGIC RHINITIS NOS [J30.9] More... Generalized OA [M15.9] Degeneration of lumbar or lumbosacral intervert* Dyslipidemia (high LDL; low HDL) [E78.5] OSTEOPOROSIS NOS [M81.0] IRRITABLE COLON [K58.9] GENERALIZED ANXIETY DIS [F41.1] DEPRESSIVE DISORDER NEC [F32.9] Essential hypertension [I10] More... 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] INVALID FOR* ULCER OF HEEL/PLANTAR MIDFOOT [L97.409] INVALID FOR* ULCER OF OTHER PART FOOT - TOES [L97.509] INVALID FOR* CELLULITIS OF FOOT [L03.119, L02.619] INVALID FOR* Vitamin D Deficiency [E55.9] INVALID FOR* Multiple thyroid nodules [E04.2] INVALID FOR* Right knee pain [M25.561] INVALID FOR* Stenosis of right carotid artery [I65.21] INVALID FOR* Left lower quadrant pain [R10.32] INVALID FOR* Other instructions from your clinician: Aphthous ulcers Prescriptions ordered this encounter Disp Refills Start End DEXAMETHASONE 0.5 MG/5 ML ORAL ELIXIR 120 * 0 04/06/2018 Sig: Swish for 5 minutes then spit out LIDOCAINE 2 % MUCOSAL SOLUTION 100 * 0 04/06/2018 Route: ORAL Sig: Take 5 mL by mouth as needed. Follow-up and Disposition History Recorded Encounter Status:Closed by PODLOGAR, TRINA CASE on 04/06/18 HSV1,2/VZV AMPLIF Collected: 03/27/2018 Status: F Source: [place] 3:02 PM [facility] REPOSITORY TYPE CODE TESTS RESULT OUT OF REFERENCE UNITS RANGE LAB HVZSRC Specimen Lesion Source LAB HRPSV1 HSV Type 1, Negative for HDA Herpes Simplex virus Type 1 by Molecular Detection. LAB HRPSV2 HSV Type 2, Negative for HDA Herpes Simplex virus Type 2 by Molecular Detection. LAB VZOSV V Zoster Virus, Negative for HDA Varicella Zoster virus by Molecular Detection. Performed By: #### HSVVZV #### [facility] [address] [address] WOUND Observed: 03/27/2018 Status: F Source: [place] CULTURE/STAIN 3:02 PM [facility] REPOSITORY Sp. Request/Comment: - Swab Smear Result - Few Gram positive cocci --> ABNORMAL ALERT No Polymorphonuclear Leukocytes Culture Result - Many Mixed oral rufino Performed By: #### WCUL #### [facility] [address] [address] PROGRESS Observed: 03/27/2018 Status: COMPLETED Source: [place] 2:41 PM [facility] [facility] HNO ID: [id number] Author: Zina (Arun) Alessandro Service: (none) Author Type: Nurse Practitioner Type: Progress Notes Filed: 03/27/2018 4:05 PM Note Text: 03/27/2018 Patient presents with: Pain: lip has extra skin like a blister /itching and right side neck swollen SUBJECTIVE: This is a 63 year old that is here today for sore on lower lip. She states that she has had it for about 2 weeks now. She feels that it is getting worse. 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 Nothing seems to be helping. it itches and is painful. Top lip itches as well, but no sores there. No sores in her mouth, but her teeth have been bothering her and she has an appointment next month. She states that when the sore started, she woke up feeling like there was extra skin as though she had a blister, but she never had a blister. Lower lip now feels swollen as well. She has also had adenopathy that she has been feeling mostly on the right that never completely went away since she had a sore throat in January. Denies fever or chills. 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 MEDICATIONS Current Outpatient Prescriptions: meloxicam (MOBIC) 15 mg tablet Take 0.5-1 tablets by mouth once daily. With food. As directed HYDROcodone-Acetaminophen (NORCO) 10-325 mg per tablet Take 0.5-1 tablets by mouth every 6 hours as needed for up to 30 days.Earliest Fill Date: 01/23/18 multivitamin tablet Take 1 tablet by mouth once daily. ALPRAZolam (XANAX) 0.25 mg tablet Take 1 tablet by mouth once daily as needed for Anxiety for up to 90 days. Clobetasol Propionate (TEMOVATE) 0.05 % external solution apply as directed once daily as needed lisinopril (PRINIVIL) 5 mg tablet Take 1 tablet by mouth once daily. lidocaine (LIDODERM) 5 % Apply 1 Patch topically as directed to affected area(s), up to 3 patches at a time. Apply for twelve hours per day to affected area. gabapentin (NEURONTIN) 300 mg capsule Take 1 capsule by mouth three times daily. estradiol (ESTRACE) 1 mg tablet Take 1 tablet by mouth once daily. Omeprazole 40 mg capsule Take 1 capsule by mouth once daily. metaxalone (SKELAXIN) 800 mg tablet Take 0.5-1 tablets by mouth twice daily. loxapine (LOXITANE) 5 mg capsule Take 1 capsule by mouth twice daily. clobetasol (TEMOVATE) 0.05 % ointment Apply to affected area twice daily. Use sparingly dicyclomine (BENTYL) 10 mg capsule Take 1 capsule by mouth before meals and at bedtime. As needed fluticasone (FLONASE) 50 mcg/actuation nasal spray Use 2 Sprays in each nostril once daily as needed. USE BEFORE LYING DOWN FOR BED. mupirocin (BACTROBAN) 2 % ointment Apply 1 application to affected area three times daily. Location: torso or extremity wound as needed aspirin 325 mg ORAL tablet Take one(1) tablet daily. HYDROcodone-Acetaminophen (NORCO) 10-325 mg per tablet Take 0.5-1 tablets by mouth every 6 hours as needed for up to 30 days.Earliest Fill Date: 02/22/18 HYDROcodone-Acetaminophen (NORCO) 10-325 mg per tablet Take 0.5-1 tablets by mouth every 6 hours as needed for up to 30 days.Earliest Fill Date: 03/24/18 HYDROcodone-Acetaminophen (NORCO) 10-325 mg per tablet Take 0.5-1 tablets by mouth every 6 hours as needed for up to 30 days.Earliest Fill Date: 11/23/17 HYDROcodone-Acetaminophen (NORCO) 10-325 mg per tablet Take 0.5-1 tablets by mouth every 6 hours as needed for up to 30 days.Earliest Fill Date: 12/23/17 No current facility-administered medications for this visit. Medications and allergies reviewed by this provider. SOCIAL HISTORY Social History Marital status: Spouse name: Years of education: Number of children: 3 Occupational History Occupation Employer Comment [employer] Social History Main Topics Smoking status: Former Smoker Packs/day: 0.00 Years: 0.00 Quit date: 11/04/2006 Smokeless tobacco: Never Used Alcohol use: Yes Comment: rarely Drug use: No Social History Narrative 11/10/16--son REVIEW OF SYSTEMS see HPI OBJECTIVE: BP 126/84 Pulse 80 Resp 20 Wt 60.8 kg (134 lb) BMI 27.06 kg/m? . Vital signs reviewed by this provider. PHYSICAL EXAMINATION: General appearance: Well appearing, alert, in no acute distress, well-hydrated, well nourished. Skin: Bottom lip with flat sores with erythematous almost raw centers to right and left sides, no open areas to the middle, but appears swollen, no drainage. Tender to touch. Skin color, texture, turgor normal, no suspicious rashes or lesions Oropharynx: Lips, mucosa, and tongue normal, teeth and gums normal, oropharynx normal Neck: Positive findings: submaxillary adenopathy Lungs: Lungs clear to auscultation. No wheezing, rhonchi, rales Heart: RRR without murmur, gallop, or rubs. No ectopy ASSESSMENT/PLAN: 1. Sore of lower lip - ICD9: 528.5, ICD10: K13.0 - will send swabs, no drainage though, so unsure if we will get any growth - with history or MRSA infection to the area, would like to treat with PO antibiotic - encouraged to follow up with the dentist for the tooth pain, not sure if they may be related - WOUND CULTURE AND GRAM STAIN - HSV CULTURE, BAL AND TISSUE - SULFAMETHOXAZOLE 800 MG-TRIMETHOPRIM 160 MG TABLET - follow up if no improvement or any worsening symptoms Zina Partida APRN.CNP CNOV Observed: 03/27/2018 Status: COMPLETED Source: [place] 2:20 PM [facility] REPOSIT[facility] Office Visit (FAMPWS) DEE MCALLISTER ([id number]) 1955 F Date Time Provider Department 03/27/18 2:20 PM ZINA PARTIDA (ARUN) FAMPWS During your visit today, we recorded the following information about you: Pulse Respiration Blood pressure Weight 80/minute 20/minute 126/84 60.8 kg Zina Partida APRN.CNP 03/27/2018 4:05 PM Signed 03/27/2018 Patient presents with: Pain: lip has extra skin like a blister /itching and right side neck swollen SUBJECTIVE: This is a 63 year old that is here today for sore on lower lip. She states that she has had it for about 2 weeks now. She feels that it is getting worse. 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 Nothing seems to be helping. it itches and is painful. Top lip itches as well, but no sores there. No sores in her mouth, but her teeth have been bothering her and she has an appointment next month. She states that when the sore started, she woke up feeling like there was extra skin as though she had a blister, but she never had a blister. Lower lip now feels swollen as well. She has also had adenopathy that she has been feeling mostly on the right that never completely went away since she had a sore throat in January. Denies fever or chills. 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 MEDICATIONS Current Outpatient Prescriptions: meloxicam (MOBIC) 15 mg tablet Take 0.5-1 tablets by mouth once daily. With food. As directed HYDROcodone-Acetaminophen (NORCO) 10-325 mg per tablet Take 0.5-1 tablets by mouth every 6 hours as needed for up to 30 days.Earliest Fill Date: 01/23/18 multivitamin tablet Take 1 tablet by mouth once daily. ALPRAZolam (XANAX) 0.25 mg tablet Take 1 tablet by mouth once daily as needed for Anxiety for up to 90 days. Clobetasol Propionate (TEMOVATE) 0.05 % external solution apply as directed once daily as needed lisinopril (PRINIVIL) 5 mg tablet Take 1 tablet by mouth once daily. lidocaine (LIDODERM) 5 % Apply 1 Patch topically as directed to affected area(s), up to 3 patches at a time. Apply for twelve hours per day to affected area. gabapentin (NEURONTIN) 300 mg capsule Take 1 capsule by mouth three times daily. estradiol (ESTRACE) 1 mg tablet Take 1 tablet by mouth once daily. Omeprazole 40 mg capsule Take 1 capsule by mouth once daily. metaxalone (SKELAXIN) 800 mg tablet Take 0.5-1 tablets by mouth twice daily. loxapine (LOXITANE) 5 mg capsule Take 1 capsule by mouth twice daily. clobetasol (TEMOVATE) 0.05 % ointment Apply to affected area twice daily. Use sparingly dicyclomine (BENTYL) 10 mg capsule Take 1 capsule by mouth before meals and at bedtime. As needed fluticasone (FLONASE) 50 mcg/actuation nasal spray Use 2 Sprays in each nostril once daily as needed. USE BEFORE LYING DOWN FOR BED. mupirocin (BACTROBAN) 2 % ointment Apply 1 application to affected area three times daily. Location: torso or extremity wound as needed aspirin 325 mg ORAL tablet Take one(1) tablet daily. HYDROcodone-Acetaminophen (NORCO) 10-325 mg per tablet Take 0.5-1 tablets by mouth every 6 hours as needed for up to 30 days.Earliest Fill Date: 02/22/18 HYDROcodone-Acetaminophen (NORCO) 10-325 mg per tablet Take 0.5-1 tablets by mouth every 6 hours as needed for up to 30 days.Earliest Fill Date: 03/24/18 HYDROcodone-Acetaminophen (NORCO) 10-325 mg per tablet Take 0.5-1 tablets by mouth every 6 hours as needed for up to 30 days.Earliest Fill Date: 11/23/17 HYDROcodone-Acetaminophen (NORCO) 10-325 mg per tablet Take 0.5-1 tablets by mouth every 6 hours as needed for up to 30 days.Earliest Fill Date: 12/23/17 No current facility-administered medications for this visit. Medications and allergies reviewed by this provider. SOCIAL HISTORY Social History Marital status: Spouse name: Years of education: Number of children: 3 Occupational History Occupation Employer Comment [employer] Social History Main Topics Smoking status: Former Smoker Packs/day: 0.00 Years: 0.00 Quit date: 11/04/2006 Smokeless tobacco: Never Used Alcohol use: Yes Comment: rarely Drug use: No Social History Narrative 11/10/16--son REVIEW OF SYSTEMS see HPI OBJECTIVE: BP 126/84 Pulse 80 Resp 20 Wt 60.8 kg (134 lb) BMI 27.06 kg/m? . Vital signs reviewed by this provider. PHYSICAL EXAMINATION: General appearance: Well appearing, alert, in no acute distress, well-hydrated, well nourished. Skin: Bottom lip with flat sores with erythematous almost raw centers to right and left sides, no open areas to the middle, but appears swollen, no drainage. Tender to touch. Skin color, texture, turgor normal, no suspicious rashes or lesions Oropharynx: Lips, mucosa, and tongue normal, teeth and gums normal, oropharynx normal Neck: Positive findings: submaxillary adenopathy Lungs: Lungs clear to auscultation. No wheezing, rhonchi, rales Heart: RRR without murmur, gallop, or rubs. No ectopy ASSESSMENT/PLAN: 1. Sore of lower lip - ICD9: 528.5, ICD10: K13.0 - will send swabs, no drainage though, so unsure if we will get any growth - with history or MRSA infection to the area, would like to treat with PO antibiotic - encouraged to follow up with the dentist for the tooth pain, not sure if they may be related - WOUND CULTURE AND GRAM STAIN - HSV CULTURE, BAL AND TISSUE - SULFAMETHOXAZOLE 800 MG-TRIMETHOPRIM 160 MG TABLET - follow up if no improvement or any worsening symptoms Zina Partida APRN.COMMERCIAL ESTIMATOR Referring Provider: SELF [[id number]] Allergies As of Date: 03/27/2018 (No Known Allergies) Date Reviewed: 03/27/2018 Reviewed by: Chante Cohn) MARK Ramirez - Fully Assessed Reason for Visit: Pain [78] Cmt: lip has extra skin like a blister /itching and right side neck swollen Reason For Visit History Recorded Primary Visit Diagnosis:Sore of lower lip [K13.0] Order(s):WOUND CULTURE AND GRAM STAIN [SQWCUL] Order #: [id number] HSV CULTURE, BAL AND TISSUE [SQHSVCUL] Order #: [id number] FUTURE sulfamethoxazole-trimethoprim (BACTRIM DS) 800-160 mg per tabletTake 1 tablet by mouth twice daily for 10 days.Disp: 20 tabletRfl: 0 Prescriptions as of 03/27/2018 Sig: MELOXICAM 15 MG TABLET Take 0.5-1 tablets by mouth o* HYDROCODONE 10 MG-ACETAMINOPH* Take 0.5-1 tablets by mouth e* MULTIVITAMIN TABLET Take 1 tablet by mouth once d* ALPRAZOLAM 0.25 MG TABLET Take 1 tablet by mouth once d* CLOBETASOL 0.05 % SCALP SOLUT* apply as directed once daily * LISINOPRIL 5 MG TABLET Take 1 tablet by mouth once d* LIDOCAINE 5 % TOPICAL PATCH Apply 1 Patch topically as di* GABAPENTIN 300 MG CAPSULE Take 1 capsule by mouth three* ESTRADIOL 1 MG TABLET Take 1 tablet by mouth once d* OMEPRAZOLE 40 MG CAPSULE,BITA* Take 1 capsule by mouth once * METAXALONE 800 MG TABLET Take 0.5-1 tablets by mouth t* LOXAPINE SUCCINATE 5 MG CAPSU* Take 1 capsule by mouth twice* CLOBETASOL 0.05 % TOPICAL OIN* Apply to affected area twice* DICYCLOMINE 10 MG CAPSULE Take 1 capsule by mouth befor* FLUTICASONE 50 MCG/ACTUATION * Use 2 Sprays in each nostril * MUPIROCIN 2 % TOPICAL OINTMENT Apply 1 application to affect* ASPIRIN 325 MG TABLET Take one(1) tablet daily. SULFAMETHOXAZOLE 800 MG-TRIME* Take 1 tablet by mouth twice * HYDROCODONE 10 MG-ACETAMINOPH* Take 0.5-1 tablets by mouth e* HYDROCODONE 10 MG-ACETAMINOPH* Take 0.5-1 tablets by mouth e* HYDROCODONE 10 MG-ACETAMINOPH* Take 0.5-1 tablets by mouth e* HYDROCODONE 10 MG-ACETAMINOPH* Take 0.5-1 tablets by mouth e* Problem List As Of Date 03/27/2018 Noted Resolved PSORIAS RELATED DIS NEC [L40.8] More... ALLERGIC RHINITIS NOS [J30.9] More... Generalized OA [M15.9] Degeneration of lumbar or lumbosacral intervert* Dyslipidemia (high LDL; low HDL) [E78.5] OSTEOPOROSIS NOS [M81.0] IRRITABLE COLON [K58.9] GENERALIZED ANXIETY DIS [F41.1] DEPRESSIVE DISORDER NEC [F32.9] Essential hypertension [I10] More... ABDOMINAL PAIN GENERALIZED [R10.84] INVALID FOR* DERMATOPHYTOSIS OF FOOT [B35.3] INVALID FOR* ATHEROSCL ART EXTREM INTERMIT KEYANAN [I70.219] INVALID FOR* ULCER OF HEEL/PLANTAR MIDFOOT [L97.409] INVALID FOR* ULCER OF OTHER PART FOOT - TOES [L97.509] INVALID FOR* CELLULITIS OF FOOT [L03.119, L02.619] INVALID FOR* Vitamin D Deficiency [E55.9] INVALID FOR* Multiple thyroid nodules [E04.2] INVALID FOR* Right knee pain [M25.561] INVALID FOR* Stenosis of right carotid artery [I65.21] INVALID FOR* Left lower quadrant pain [R10.32] INVALID FOR* Prescriptions ordered this encounter Disp Refills Start End SULFAMETHOXAZOLE 800 MG-TRIMETHOPRIM* 20 t* 0 03/27/2018 04/06/2018 Cmt: Ok to give generic equivalent Route: ORAL Sig: Take 1 tablet by mouth twice daily for 10 days. Encounter Status:Closed by ZINA PARTIDA on 03/27/18 PROGRESS Observed: 01/23/2018 Status: COMPLETED Source: [place] 5:34 PM [facility] REPOSITORY O ID: [id number] Author: Rios Valle Service: (none) Author Type: Physician Type: Progress Notes Filed: 02/01/2018 9:59 PM Note Text: Patient presents with: Recheck: 3 month follow up SUBJECTIVE: Dee Mcallister is a 62 year old year old lady here today for 3 month follow up appointment for review of medical conditions. 3 to 4 days sore in throat; some pain with swallowing No fevers or chills. Noted head hurts but not persistent. No sinus pain. No ear pain. Other issues stable. Left hip pain. 40 minutes to get to work. Limps on way in. Better while at work. Tender greater trochanter area PAST MEDICAL HISTORY Diagnosis Date - Allergic rhinitis, cause unspecified Allergic rhinitis - Degeneration of intervertebral disc, site unspecified - Depressive disorder, not elsewhere classified - Generalized anxiety disorder - Generalized osteoarthrosis, unspecified site - Irritable bowel syndrome - Osteoporosis, unspecified - Other psoriasis and similar disorders Psoriasis - 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)--needs IFOBT yearly but colonoscopy okay 10 years - Pure hypercholesterolemia - 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 lidocaine (LIDODERM) 5 % Apply 1 Patch topically as directed to affected area(s), up to 3 patches at a time. Apply for twelve hours per day to affected area. gabapentin (NEURONTIN) 300 mg capsule Take 1 capsule by mouth three times daily. estradiol (ESTRACE) 1 mg tablet Take 1 tablet by mouth once daily. HYDROcodone-Acetaminophen (NORCO) 10-325 mg per tablet Take 0.5-1 tablets by mouth every 6 hours as needed for up to 30 days.Earliest Fill Date: 10/24/17 ALPRAZolam (XANAX) 0.25 mg tablet Take 1 tablet by mouth once daily as needed for Anxiety for up to 90 days. Omeprazole 40 mg capsule Take 1 capsule by mouth once daily. meloxicam (MOBIC) 15 mg tablet Take 0.5-1 tablets by mouth once daily. With food. As directed metaxalone (SKELAXIN) 800 mg tablet Take 0.5-1 tablets by mouth twice daily. loxapine (LOXITANE) 5 mg capsule Take 1 capsule by mouth twice daily. clobetasol (TEMOVATE) 0.05 % ointment Apply to affected area twice daily. Use sparingly dicyclomine (BENTYL) 10 mg capsule Take 1 capsule by mouth before meals and at bedtime. As needed fluticasone (FLONASE) 50 mcg/actuation nasal spray Use 2 Sprays in each nostril once daily as needed. USE BEFORE LYING DOWN FOR BED. mupirocin (BACTROBAN) 2 % ointment Apply 1 application to affected area three times daily. Location: torso or extremity wound as needed aspirin 325 mg ORAL tablet Take one(1) tablet daily. HYDROcodone-Acetaminophen (NORCO) 10-325 mg per tablet Take 0.5-1 tablets by mouth every 6 hours as needed for up to 30 days.Earliest Fill Date: 11/23/17 HYDROcodone-Acetaminophen (NORCO) 10-325 mg per tablet Take 0.5-1 tablets by mouth every 6 hours as needed for up to 30 days.Earliest Fill Date: 12/23/17 IRON, FERROUS SULFATE, ORAL Take by mouth. ketoconazole (NIZORAL) 2 % cream Apply 1 application to affected area once daily. CALCIUM + D 600 MG-200 UNIT TAB Take one(1) tablet two(2) times daily. No current facility-administered medications for this visit. OBJECTIVE: BP 130/70 Pulse 80 Resp 20 Wt 59 kg (130 lb) BMI 26.26 kg/m? Patient is alert, oriented times 3, no apparent distress, affect is bright, reactive. Last 5 Encounter BP Readings: Date: BP: 01/23/2018 130/70 10/24/2017 138/82 07/25/2017 124/80 04/25/2017 144/78 01/30/2017 127/70 Last 5 Encounter Wt Readings: Date: Wt: 01/23/2018 59 kg (130 lb) 10/24/2017 55.3 kg (122 lb) 07/25/2017 55.3 kg (122 lb) 04/25/2017 56.7 kg (125 lb) 01/24/2017 59.9 kg (132 lb) Heart: Regular rate, rhythm, no murmurs, gallops, rubs. Lungs: Clear to auscultation, bilaterally, breathing non labored. Ext: No cyanosis, clubbing, or edema. ASSESSMENT AND PLAN: Encounter Diagnosis ICD-10-CM 1. Generalized OA M15.9 HYDROcodone-Acetaminophen (NORCO) 10-325 mg per tablet HYDROcodone-Acetaminophen (NORCO) 10-325 mg per tablet HYDROcodone-Acetaminophen (NORCO) 10-325 mg per tablet 2. Degeneration of lumbar or lumbosacral intervertebral disc M51.37 HYDROcodone-Acetaminophen (NORCO) 10-325 mg per tablet HYDROcodone-Acetaminophen (NORCO) 10-325 mg per tablet HYDROcodone-Acetaminophen (NORCO) 10-325 mg per tablet 3. Anxiety in acute stress reaction F41.1 ALPRAZolam (XANAX) 0.25 mg tablet F43.0 4. Acute pharyngitis, unspecified etiology J02.9 suspecy viral OARRS website checked and validated. All prescriptions have been APPROPRIATELY filled. No suspicious activity was identified.- 01/23/2018 by Rios Valle MD Stable with control of anxiety and pain. No signs of diversion or abuse of medication(s); no adverse effects. Continue present management. Treating acute infection too. Above issues addressed with patient. Patient involved in shared decision making for management of her medical issues. History and medications reviewed. Epic updated as needed Refills taken care of and meds adjusted as indicated after reviewed history, exam and labs. Health Maintenance reviewed. Updated record and/or ordered tests as recorded. Encouraged on efforts at healthy diet and regular exercise and adequate sleep. The majority of the visit was spent counseling and/or coordinating care for the patient. [id number] time was at least 25 minutes. Rios Valle MD CNOV Observed: 01/23/2018 Status: COMPLETED Source: [place] 5:20 PM [facility] REPOSITORY Office Visit (INTMWS) DEE MCALLISTER ([id number]) 1955 F Date Time Provider Department 01/23/18 5:20 PM RIOS VALLE INTMWS During your visit today, we recorded the following information about you: Pulse Respiration Blood pressure Weight 80/minute 20/minute 130/70 59 kg Rios Valle MD 02/01/2018 9:59 PM Signed Patient presents with: Recheck: 3 month follow up SUBJECTIVE: Dee Yuki Esvin is a 62 year old year old lady here today for 3 month follow up appointment for review of medical conditions. 3 to 4 days sore in throat; some pain with swallowing No fevers or chills. Noted head hurts but not persistent. No sinus pain. No ear pain. Other issues stable. Left hip pain. 40 minutes to get to work. Limps on way in. Better while at work. Tender greater trochanter area PAST MEDICAL HISTORY Diagnosis Date - Allergic rhinitis, cause unspecified Allergic rhinitis - Degeneration of intervertebral disc, site unspecified - Depressive disorder, not elsewhere classified - Generalized anxiety disorder - Generalized osteoarthrosis, unspecified site - Irritable bowel syndrome - Osteoporosis, unspecified - Other psoriasis and similar disorders Psoriasis - 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)--needs IFOBT yearly but colonoscopy okay 10 years - Pure hypercholesterolemia - 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 lidocaine (LIDODERM) 5 % Apply 1 Patch topically as directed to affected area(s), up to 3 patches at a time. Apply for twelve hours per day to affected area. gabapentin (NEURONTIN) 300 mg capsule Take 1 capsule by mouth three times daily. estradiol (ESTRACE) 1 mg tablet Take 1 tablet by mouth once daily. HYDROcodone-Acetaminophen (NORCO) 10-325 mg per tablet Take 0.5-1 tablets by mouth every 6 hours as needed for up to 30 days.Earliest Fill Date: 10/24/17 ALPRAZolam (XANAX) 0.25 mg tablet Take 1 tablet by mouth once daily as needed for Anxiety for up to 90 days. Omeprazole 40 mg capsule Take 1 capsule by mouth once daily. meloxicam (MOBIC) 15 mg tablet Take 0.5-1 tablets by mouth once daily. With food. As directed metaxalone (SKELAXIN) 800 mg tablet Take 0.5-1 tablets by mouth twice daily. loxapine (LOXITANE) 5 mg capsule Take 1 capsule by mouth twice daily. clobetasol (TEMOVATE) 0.05 % ointment Apply to affected area twice daily. Use sparingly dicyclomine (BENTYL) 10 mg capsule Take 1 capsule by mouth before meals and at bedtime. As needed fluticasone (FLONASE) 50 mcg/actuation nasal spray Use 2 Sprays in each nostril once daily as needed. USE BEFORE LYING DOWN FOR BED. mupirocin (BACTROBAN) 2 % ointment Apply 1 application to affected area three times daily. Location: torso or extremity wound as needed aspirin 325 mg ORAL tablet Take one(1) tablet daily. HYDROcodone-Acetaminophen (NORCO) 10-325 mg per tablet Take 0.5-1 tablets by mouth every 6 hours as needed for up to 30 days.Earliest Fill Date: 11/23/17 HYDROcodone-Acetaminophen (NORCO) 10-325 mg per tablet Take 0.5-1 tablets by mouth every 6 hours as needed for up to 30 days.Earliest Fill Date: 12/23/17 IRON, FERROUS SULFATE, ORAL Take by mouth. ketoconazole (NIZORAL) 2 % cream Apply 1 application to affected area once daily. CALCIUM + D 600 MG-200 UNIT TAB Take one(1) tablet two(2) times daily. No current facility-administered medications for this visit. OBJECTIVE: BP 130/70 Pulse 80 Resp 20 Wt 59 kg (130 lb) BMI 26.26 kg/m? Patient is alert, oriented times 3, no apparent distress, affect is bright, reactive. Last 5 Encounter BP Readings: Date: BP: 01/23/2018 130/70 10/24/2017 138/82 07/25/2017 124/80 04/25/2017 144/78 01/30/2017 127/70 Last 5 Encounter Wt Readings: Date: Wt: 01/23/2018 59 kg (130 lb) 10/24/2017 55.3 kg (122 lb) 07/25/2017 55.3 kg (122 lb) 04/25/2017 56.7 kg (125 lb) 01/24/2017 59.9 kg (132 lb) Heart: Regular rate, rhythm, no murmurs, gallops, rubs. Lungs: Clear to auscultation, bilaterally, breathing non labored. Ext: No cyanosis, clubbing, or edema. ASSESSMENT AND PLAN: Encounter Diagnosis ICD-10-CM 1. Generalized OA M15.9 HYDROcodone-Acetaminophen (NORCO) 10-325 mg per tablet HYDROcodone-Acetaminophen (NORCO) 10-325 mg per tablet HYDROcodone-Acetaminophen (NORCO) 10-325 mg per tablet 2. Degeneration of lumbar or lumbosacral intervertebral disc M51.37 HYDROcodone-Acetaminophen (NORCO) 10-325 mg per tablet HYDROcodone-Acetaminophen (NORCO) 10-325 mg per tablet HYDROcodone-Acetaminophen (NORCO) 10-325 mg per tablet 3. Anxiety in acute stress reaction F41.1 ALPRAZolam (XANAX) 0.25 mg tablet F43.0 4. Acute pharyngitis, unspecified etiology J02.9 suspecy viral OARRS website checked and validated. All prescriptions have been APPROPRIATELY filled. No suspicious activity was identified.- 01/23/2018 by Rios Valle MD Stable with control of anxiety and pain. No signs of diversion or abuse of medication(s); no adverse effects. Continue present management. Treating acute infection too. Above issues addressed with patient. Patient involved in shared decision making for management of her medical issues. History and medications reviewed. Epic updated as needed Refills taken care of and meds adjusted as indicated after reviewed history, exam and labs. Health Maintenance reviewed. Updated record and/or ordered tests as recorded. Encouraged on efforts at healthy diet and regular exercise and adequate sleep. The majority of the visit was spent counseling and/or coordinating care for the patient. Hgfw-up-oxdl time was at least 25 minutes. Rios Valle MD Referring Provider: SELF [200] Allergies As of Date: 01/23/2018 (No Known Allergies) Date Reviewed: 01/23/2018 Reviewed by: Luzmaria Vee LPN - Fully Assessed Reason for Visit: Recheck [92] Cmt: 3 month follow up Primary Visit Diagnosis:Generalized OA [M15.9] Other Visit Diagnoses:Degeneration of lumbar or lumbosacral intervertebral disc [M51.37] Anxiety in acute stress reaction [F41.1, F43.0] Acute pharyngitis, unspecified etiology [J02.9] Comment:suspecy viral Order(s):HYDROcodone-Acetaminophen (NORCO) 10-325 mg per tabletTake 0.5-1 tablets by mouth every 6 hours as needed for up to 30 days. Earliest Fill Date: 01/23/18Disp: 120 tabletRfl: 0 multivitamin tabletTake 1 tablet by mouth once daily.Disp: Rfl: ALPRAZolam (XANAX) 0.25 mg tabletTake 1 tablet by mouth once daily as needed for Anxiety for up to 90 days.Disp: 14 tabletRfl: 0 [START ON 02/22/2018] HYDROcodone-Acetaminophen (NORCO) 10-325 mg per tabletTake 0.5-1 tablets by mouth every 6 hours as needed for up to 30 days. Earliest Fill Date: 02/22/18Disp: 120 tabletRfl: 0 [START ON 03/24/2018] HYDROcodone-Acetaminophen (NORCO) 10-325 mg per tabletTake 0.5-1 tablets by mouth every 6 hours as needed for up to 30 days. Earliest Fill Date: 03/24/18Disp: 120 tabletRfl: 0 Prescriptions as of 01/23/2018 Sig: ALPRAZOLAM 0.25 MG TABLET Take 1 tablet by mouth once d* CLOBETASOL 0.05 % SCALP SOLUT* apply as directed once daily * LISINOPRIL 5 MG TABLET Take 1 tablet by mouth once d* LIDOCAINE 5 % TOPICAL PATCH Apply 1 Patch topically as di* GABAPENTIN 300 MG CAPSULE Take 1 capsule by mouth three* ESTRADIOL 1 MG TABLET Take 1 tablet by mouth once d* OMEPRAZOLE 40 MG CAPSULE,BITA* Take 1 capsule by mouth once * MELOXICAM 15 MG TABLET Take 0.5-1 tablets by mouth o* METAXALONE 800 MG TABLET Take 0.5-1 tablets by mouth t* LOXAPINE SUCCINATE 5 MG CAPSU* Take 1 capsule by mouth twice* CLOBETASOL 0.05 % TOPICAL OIN* Apply to affected area twice* DICYCLOMINE 10 MG CAPSULE Take 1 capsule by mouth befor* FLUTICASONE 50 MCG/ACTUATION * Use 2 Sprays in each nostril * MUPIROCIN 2 % TOPICAL OINTMENT Apply 1 application to affect* ASPIRIN 325 MG TABLET Take one(1) tablet daily. HYDROCODONE 10 MG-ACETAMINOPH* Take 0.5-1 tablets by mouth e* MULTIVITAMIN TABLET Take 1 tablet by mouth once d* HYDROCODONE 10 MG-ACETAMINOPH* Take 0.5-1 tablets by mouth e* HYDROCODONE 10 MG-ACETAMINOPH* Take 0.5-1 tablets by mouth e* HYDROCODONE 10 MG-ACETAMINOPH* Take 0.5-1 tablets by mouth e* HYDROCODONE 10 MG-ACETAMINOPH* Take 0.5-1 tablets by mouth e* Medication notes this encounter DICYCLOMINE 10 MG CAPSULE >> Rios Valle MD 01/23/2018 5:45 PM >> RIOS VALLE MD MonJan 23, 2018 5:45 PM Just needs once in a while ASPIRIN 325 MG TABLET >> Luzmaria Vee LPN 01/23/2018 5:21 PM >> LUZMARIA VEE LPN MonJan 23, 2018 5:21 PM As needed IRON (FERROUS SULFATE) ORAL >> Luzmaria Vee LPN 01/23/2018 5:20 PM >> LUZMARIA VEE LPN MonJan 23, 2018 5:20 PM Not currently using KETOCONAZOLE 2 % TOPICAL CREAM >> Luzmaria Vee LPN 01/23/2018 5:20 PM >> LUZMARIA VEE LPN MonJan 23, 2018 5:20 PM Course of therapy completed. CALCIUM + D 600 MG (1,500 MG)-200 UNIT TABLET >> Luzmaria Vee LPN 01/23/2018 5:21 PM >> LUZMARIA VEE LPN MonJan 23, 2018 5:21 PM Takes as part of multivitamin Problem List As Of Date 01/23/2018 Noted Resolved PSORIAS RELATED DIS NEC [L40.8] More... ALLERGIC RHINITIS NOS [J30.9] More... Generalized OA [M15.9] Degeneration of lumbar or lumbosacral intervert* Dyslipidemia (high LDL; low HDL) [E78.5] OSTEOPOROSIS NOS [M81.0] IRRITABLE COLON [K58.9] GENERALIZED ANXIETY DIS [F41.1] DEPRESSIVE DISORDER NEC [F32.9] Essential hypertension [I10] More... 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] INVALID FOR* ULCER OF HEEL/PLANTAR MIDFOOT [L97.409] INVALID FOR* ULCER OF OTHER PART FOOT - TOES [L97.509] INVALID FOR* CELLULITIS OF FOOT [L03.119, L02.619] INVALID FOR* Vitamin D Deficiency [E55.9] INVALID FOR* Multiple thyroid nodules [E04.2] INVALID FOR* Right knee pain [M25.561] INVALID FOR* Stenosis of right carotid artery [I65.21] INVALID FOR* Left lower quadrant pain [R10.32] INVALID FOR* Prescriptions ordered this encounter Disp Refills Start End HYDROCODONE 10 MG-ACETAMINOPHEN 325 * 120 * 0 01/23/2018 02/22/2018 Class: Print RX Route: ORAL Sig: Take 0.5-1 tablets by mouth every 6 hours as needed for up to 30 days. Earliest Fill Date: 01/23/18 MULTIVITAMIN TABLET 01/23/2018 Class: Med Update Route: ORAL Sig: Take 1 tablet by mouth once daily. ALPRAZOLAM 0.25 MG TABLET 14 t* 0 01/23/2018 04/23/2018 Class: Print RX Route: ORAL Sig: Take 1 tablet by mouth once daily as needed for Anxiety for up to 90 days. HYDROCODONE 10 MG-ACETAMINOPHEN 325 * 120 * 0 02/22/2018 03/24/2018 Class: Print RX Route: ORAL Sig: Take 0.5-1 tablets by mouth every 6 hours as needed for up to 30 days. Earliest Fill Date: 02/22/18 HYDROCODONE 10 MG-ACETAMINOPHEN 325 * 120 * 0 03/24/2018 04/23/2018 Class: Print RX Route: ORAL Sig: Take 0.5-1 tablets by mouth every 6 hours as needed for up to 30 days. Earliest Fill Date: 03/24/18 Medications Discontinued During This Encounter CALCIUM + D 600 MG-200 UNIT TAB 0 09/16/2005 01/23/2018 Class: Historical Med Route: ORAL Sig: Take one(1) tablet two(2) times daily. Disc: Reason for discontinue is not on file. IRON, FERROUS SULFATE, ORAL 01/23/2018 Class: Historical Med Route: ORAL Sig: Take by mouth. Disc: Reason for discontinue is not on file. ketoconazole (NIZORAL) 2 % cream 30 g 0 05/07/2014 01/23/2018 Class: Print RX Route: TOPICAL Sig: Apply 1 application to affected area once daily. Disc: Reason for discontinue is not on file. HYDROcodone-Acetaminophen (NORCO) 10* 120 * 0 10/24/2017 01/23/2018 Class: Print RX Route: ORAL Sig: Take 0.5-1 tablets by mouth every 6 hours as needed for up to 30 days. Earliest Fill Date: 10/24/17 Disc: Reason for discontinue is not on file. ALPRAZolam (XANAX) 0.25 mg tablet 14 t* 0 10/24/2017 01/23/2018 Class: Print RX Route: ORAL Sig: Take 1 tablet by mouth once daily as needed for Anxiety for up to 90 days. Disc: Reason for discontinue is not on file. Disposition: Return for As scheduled. Follow-up and Disposition History Recorded Encounter Status:Closed by RIOS VALLE MD on 02/01/18 ARUNTOUTRMICKCH Observed: 01/09/2018 Status: COMPLETED Source: [place] 12:00 AM [facility] REPOSITORY Patient Outreach ([facility]) DEE MCALLISTER ([id number]) 1955 F Date Time Provider Department 01/09/18 RIOS VALLE [facility] During your visit today, we recorded the following information about you: Allergies As of Date: 01/09/2018 (No Known Allergies) Date Reviewed: 10/24/2017 Reviewed by: Kinjal Taylor - Fully Assessed Visit Diagnosis:Medication management [Z79.899] Order(s):LIPID PANEL BASIC [SQLIPB] Order #: [id number] FUTURE Prescriptions as of 01/09/2018 Sig: CLOBETASOL 0.05 % SCALP SOLUT* apply as directed once daily * LISINOPRIL 5 MG TABLET Take 1 tablet by mouth once d* LIDOCAINE 5 % TOPICAL PATCH Apply 1 Patch topically as di* GABAPENTIN 300 MG CAPSULE Take 1 capsule by mouth three* ESTRADIOL 1 MG TABLET Take 1 tablet by mouth once d* OMEPRAZOLE 40 MG CAPSULE,BITA* Take 1 capsule by mouth once * HYDROCODONE 10 MG-ACETAMINOPH* Take 0.5-1 tablets by mouth e* X HYDROCODONE 10 MG-ACETAMINOPH* Take 0.5-1 tablets by mouth e* X ALPRAZOLAM 0.25 MG TABLET Take 1 tablet by mouth once d* X MELOXICAM 15 MG TABLET Take 0.5-1 tablets by mouth o* X HYDROCODONE 10 MG-ACETAMINOPH* Take 0.5-1 tablets by mouth e* METAXALONE 800 MG TABLET Take 0.5-1 tablets by mouth t* X LOXAPINE SUCCINATE 5 MG CAPSU* Take 1 capsule by mouth twice* X CLOBETASOL 0.05 % TOPICAL OIN* Apply to affected area twice* X DICYCLOMINE 10 MG CAPSULE Take 1 capsule by mouth befor* X IRON (FERROUS SULFATE) ORAL Take by mouth. FLUTICASONE 50 MCG/ACTUATION * Use 2 Sprays in each nostril * X MUPIROCIN 2 % TOPICAL OINTMENT Apply 1 application to affect* X KETOCONAZOLE 2 % TOPICAL CREAM Apply 1 application to affect* ASPIRIN 325 MG TABLET Take one(1) tablet daily. X CALCIUM + D 600 MG (1,500 MG)* Take one(1) tablet two(2) uriel* Problem List As Of Date 01/09/2018 Noted Resolved PSORIAS RELATED DIS NEC [L40.8] More... ALLERGIC RHINITIS NOS [J30.9] More... Generalized OA [M15.9] Degeneration of lumbar or lumbosacral intervert* Dyslipidemia (high LDL; low HDL) [E78.5] OSTEOPOROSIS NOS [M81.0] IRRITABLE COLON [K58.9] GENERALIZED ANXIETY DIS [F41.1] DEPRESSIVE DISORDER NEC [F32.9] Essential hypertension [I10] More... 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] INVALID FOR* ULCER OF HEEL/PLANTAR MIDFOOT [L97.409] INVALID FOR* ULCER OF OTHER PART FOOT - TOES [L97.509] INVALID FOR* CELLULITIS OF FOOT [L03.119, L02.619] INVALID FOR* Vitamin D Deficiency [E55.9] INVALID FOR* Multiple thyroid nodules [E04.2] INVALID FOR* Right knee pain [M25.561] INVALID FOR* Stenosis of right carotid artery [I65.21] INVALID FOR* Left lower quadrant pain [R10.32] INVALID FOR* Encounter Status:Closed by WILMER, PRODUSER on 06/01/18 PROGRESS Observed: 10/24/2017 Status: COMPLETED Source: [place] 5:46 PM [facility] REPOSITORY HNO ID: [id number] Author: Rios Valle Service: (none) Author Type: Physician Type: Progress Notes Filed: 11/05/2017 10:58 PM Note Text: Patient presents with: 3 mo f/up SUBJECTIVE: Dee Mcallister is a 62 year old year old lady here today for 3 month follow up appointment for review of medical conditions. NSAIDs questions. Dr. No said not on regular basis. Pain discussed. 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 (Dr. No for stomach ulcers) ALPRAZolam (XANAX) 0.25 mg tablet Take 1 tablet by mouth twice daily as needed for Anxiety. HYDROcodone-Acetaminophen (NORCO) 10-325 mg per tablet Take 0.5-1 tablets by mouth every 6 hours as needed for up to 30 days. May fill on or after 09/24/2017 metaxalone (SKELAXIN) 800 mg tablet Take 0.5-1 tablets by mouth twice daily. loxapine (LOXITANE) 5 mg capsule Take 1 capsule by mouth twice daily. meloxicam (MOBIC) 15 mg tablet Take 0.5-1 tablets by mouth once daily. With food. As directed clobetasol (TEMOVATE) 0.05 % ointment Apply to affected area twice daily. Use sparingly dicyclomine (BENTYL) 10 mg capsule Take 1 capsule by mouth before meals and at bedtime. As needed IRON, FERROUS SULFATE, ORAL Take by mouth. estradiol (ESTRACE) 1 mg tablet Take 1 tablet by mouth once daily. gabapentin (NEURONTIN) 300 mg capsule Take 1 capsule by mouth three times daily. lidocaine (LIDODERM) 5 % Apply 1 Patch topically as directed to affected area(s), up to 3 patches at a time. Apply for twelve hours per day to affected area. lisinopril (PRINIVIL) 5 mg tablet Take 1 tablet by mouth once daily. Clobetasol Propionate (TEMOVATE) 0.05 % external solution apply as directed once daily as needed fluticasone (FLONASE) 50 mcg/actuation nasal spray Use 2 Sprays in each nostril once daily as needed. USE BEFORE LYING DOWN FOR BED. mupirocin (BACTROBAN) 2 % ointment Apply 1 application to affected area three times daily. Location: torso or extremity wound as needed ketoconazole (NIZORAL) 2 % cream Apply 1 application to affected area once daily. aspirin 325 mg ORAL tablet Take one(1) tablet daily. CALCIUM + D 600 MG-200 UNIT TAB Take one(1) tablet two(2) times daily. No current facility-administered medications for this visit. OBJECTIVE: BP 142/90 (BP Site: Left Arm, BP Position: Sitting, BP Cuff Size: Regular Adult) Pulse 96 Resp 12 Wt 55.3 kg (122 lb) BMI 24.64 kg/m2 Patient is alert, oriented times 3, no apparent distress, affect is bright, reactive. Last 5 Encounter BP Readings: Date: BP: 10/24/2017 142/90 07/25/2017 124/80 04/25/2017 144/78 01/30/2017 127/70 01/24/2017 144/88 Last 5 Encounter Wt Readings: Date: Wt: 10/24/2017 55.3 kg (122 lb) 07/25/2017 55.3 kg (122 lb) 04/25/2017 56.7 kg (125 lb) 01/24/2017 59.9 kg (132 lb) 10/25/2016 62.6 kg (138 lb) 10/24/17 1741 10/24/17 1805 BP: 142/90 138/82 BP Site: Left Arm BP Position: Sitting BP Cuff Size: Regular Adult Pulse: 96 Resp: 12 Weight: 55.3 kg (122 lb) Heart: Regular rate, rhythm, no murmurs, gallops, rubs. Lungs: Clear to auscultation, bilaterally, breathing non labored. Ext: No cyanosis, clubbing, or edema. Component Latest Ref Rng AND Units 03/10/2017 10/12/2017 Protein, Total 6.3 - 8.0 g/dL 6.1 (L) Albumin 3.9 - 4.9 g/dL 3.5 (L) Calcium 8.5 - 10.2 mg/dL 9.8 9.1 Bilirubin, Total 0.2 - 1.3 mg/dL <0.2 (L) Alkaline Phosphatase 32 - 117 U/L 59 AST 13 - 35 U/L 22 Glucose 74 - 99 mg/dL 132 (H) 116 (H) BUN 7 - 21 mg/dL 14 16 Creatinine 0.58 - 0.96 mg/dL 0.70 0.51 (L) Sodium 136 - 144 mmol/L 141 141 Potassium 3.7 - 5.1 mmol/L 4.2 3.9 Chloride 97 - 105 mmol/L 102 105 CO2 22 - 30 mmol/L 23 25 Anion Gap 9 - 18 mmol/L 16 11 ALT 7 - 38 U/L 12 eGFR- >60 >60 eGFR-All Other Races . >60 >60 WBC 3.70 - 11.00 k/uL 9.93 6.83 RBC 3.90 - 5.20 m/uL 3.97 4.11 Hemoglobin 11.5 - 15.5 g/dL 10.9 (L) 12.2 Hematocrit 36.0 - 46.0 % 36.6 39.6 MCV 80.0 - 100.0 fL 92.2 96.4 MCH 26.0 - 34.0 pG 27.5 29.7 MCHC 30.5 - 36.0 g/dL 29.8 (L) 30.8 RDW-CV 11.5 - 15.0 % 12.8 13.3 Platelet Count 150 - 400 k/uL 452 (H) 251 MPV 9.0 - 12.7 fL 9.5 9.8 Absolute nRBC <0.01 k/uL 0.00 <0.01 Iron 41 - 186 ug/dL 17 (L) 24 (L) TIBC 232 - 386 ug/dL 271 292 Transferrin Saturation 15 - 57 % 6 (L) 8 (L) Hep C Antibody IA Negative Negative Ferritin 14.7 - 205.1 ng/mL 60.9 38.2 Magnesium 1.7 - 2.3 mg/dL 1.9 ASSESSMENT AND PLAN: Encounter Diagnosis ICD-10-CM 1. Iron deficiency E61.1 anemia resolved but iron levels still low 2. Generalized OA M15.9 HYDROcodone-Acetaminophen (NORCO) 10-325 mg per tablet HYDROcodone-Acetaminophen (NORCO) 10-325 mg per tablet HYDROcodone-Acetaminophen (NORCO) 10-325 mg per tablet 3. Degeneration of lumbar or lumbosacral intervertebral disc M51.37 HYDROcodone-Acetaminophen (NORCO) 10-325 mg per tablet HYDROcodone-Acetaminophen (NORCO) 10-325 mg per tablet HYDROcodone-Acetaminophen (NORCO) 10-325 mg per tablet 4. Anxiety in acute stress reaction F41.1 ALPRAZolam (XANAX) 0.25 mg tablet F43.0 son October 2016 5. Need for prophylactic hormone replacement therapy (postmenopausal) Z79.890 estradiol (ESTRACE) 1 mg tablet Above issues addressed with patient. Patient involved in shared decision making for management of her medical issues. History and medications reviewed. Epic updated as needed Refills taken care of and meds adjusted as indicated after reviewed history, exam and labs. Health Maintenance reviewed. Updated record and/or ordered tests as recorded. Encouraged on efforts at healthy diet and regular exercise and adequate sleep. Anemia appears resolved. Get adequate iron in diet. Monitor for signs of iron loss. Further evaluation and treatment as indicated. Stable with pain and anxiety control. No signs of diversion or abuse of medication(s); no adverse effects or adverse interactions. Continue present management. Benefits at this time outweigh the risks. OARRS website checked and validated. All prescriptions have been APPROPRIATELY filled. No suspicious activity was identified.- 11/05/2017 by Rios Valle MD The majority of the visit was spent counseling and/or coordinating care for the patient. Fvla-ws-mrpj time was at least 25 minutes. Rios Valle MD CNOV Observed: 10/24/2017 Status: COMPLETED Source: [place] 5:20 PM [facility] REPOSITORY Office Visit (INTM[facility]) DEE MCALLISTER ([id number]) 1955 F Date Time Provider Department 10/24/17 5:20 PM RIOS VALLE [facility] During your visit today, we recorded the following information about you: Pulse Respiration Blood pressure Weight 96/minute 12/minute 138/82 55.3 kg Rios Valle MD 11/05/2017 10:58 PM Signed Patient presents with: 3 mo f/up SUBJECTIVE: Dee Mcallister is a 62 year old year old lady here today for 3 month follow up appointment for review of medical conditions. NSAIDs questions. Dr. No said not on regular basis. Pain discussed. 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 (Dr. No for stomach ulcers) ALPRAZolam (XANAX) 0.25 mg tablet Take 1 tablet by mouth twice daily as needed for Anxiety. HYDROcodone-Acetaminophen (NORCO) 10-325 mg per tablet Take 0.5-1 tablets by mouth every 6 hours as needed for up to 30 days. May fill on or after 09/24/2017 metaxalone (SKELAXIN) 800 mg tablet Take 0.5-1 tablets by mouth twice daily. loxapine (LOXITANE) 5 mg capsule Take 1 capsule by mouth twice daily. meloxicam (MOBIC) 15 mg tablet Take 0.5-1 tablets by mouth once daily. With food. As directed clobetasol (TEMOVATE) 0.05 % ointment Apply to affected area twice daily. Use sparingly dicyclomine (BENTYL) 10 mg capsule Take 1 capsule by mouth before meals and at bedtime. As needed IRON, FERROUS SULFATE, ORAL Take by mouth. estradiol (ESTRACE) 1 mg tablet Take 1 tablet by mouth once daily. gabapentin (NEURONTIN) 300 mg capsule Take 1 capsule by mouth three times daily. lidocaine (LIDODERM) 5 % Apply 1 Patch topically as directed to affected area(s), up to 3 patches at a time. Apply for twelve hours per day to affected area. lisinopril (PRINIVIL) 5 mg tablet Take 1 tablet by mouth once daily. Clobetasol Propionate (TEMOVATE) 0.05 % external solution apply as directed once daily as needed fluticasone (FLONASE) 50 mcg/actuation nasal spray Use 2 Sprays in each nostril once daily as needed. USE BEFORE LYING DOWN FOR BED. mupirocin (BACTROBAN) 2 % ointment Apply 1 application to affected area three times daily. Location: torso or extremity wound as needed ketoconazole (NIZORAL) 2 % cream Apply 1 application to affected area once daily. aspirin 325 mg ORAL tablet Take one(1) tablet daily. CALCIUM + D 600 MG-200 UNIT TAB Take one(1) tablet two(2) times daily. No current facility-administered medications for this visit. OBJECTIVE: BP 142/90 (BP Site: Left Arm, BP Position: Sitting, BP Cuff Size: Regular Adult) Pulse 96 Resp 12 Wt 55.3 kg (122 lb) BMI 24.64 kg/m2 Patient is alert, oriented times 3, no apparent distress, affect is bright, reactive. Last 5 Encounter BP Readings: Date: BP: 10/24/2017 142/90 07/25/2017 124/80 04/25/2017 144/78 01/30/2017 127/70 01/24/2017 144/88 Last 5 Encounter Wt Readings: Date: Wt: 10/24/2017 55.3 kg (122 lb) 07/25/2017 55.3 kg (122 lb) 04/25/2017 56.7 kg (125 lb) 01/24/2017 59.9 kg (132 lb) 10/25/2016 62.6 kg (138 lb) 10/24/17 1741 10/24/17 1805 BP: 142/90 138/82 BP Site: Left Arm BP Position: Sitting BP Cuff Size: Regular Adult Pulse: 96 Resp: 12 Weight: 55.3 kg (122 lb) Heart: Regular rate, rhythm, no murmurs, gallops, rubs. Lungs: Clear to auscultation, bilaterally, breathing non labored. Ext: No cyanosis, clubbing, or edema. Component Latest Ref Rng ANDamp; Units 03/10/2017 10/12/2017 Protein, Total 6.3 - 8.0 g/dL 6.1 (L) Albumin 3.9 - 4.9 g/dL 3.5 (L) Calcium 8.5 - 10.2 mg/dL 9.8 9.1 Bilirubin, Total 0.2 - 1.3 mg/dL ANDlt;0.2 (L) Alkaline Phosphatase 32 - 117 U/L 59 AST 13 - 35 U/L 22 Glucose 74 - 99 mg/dL 132 (H) 116 (H) BUN 7 - 21 mg/dL 14 16 Creatinine 0.58 - 0.96 mg/dL 0.70 0.51 (L) Sodium 136 - 144 mmol/L 141 141 Potassium 3.7 - 5.1 mmol/L 4.2 3.9 Chloride 97 - 105 mmol/L 102 105 CO2 22 - 30 mmol/L 23 25 Anion Gap 9 - 18 mmol/L 16 11 ALT 7 - 38 U/L 12 eGFR- ANDgt;60 ANDgt;60 eGFR-All Other Races . ANDgt;60 ANDgt;60 WBC 3.70 - 11.00 k/uL 9.93 6.83 RBC 3.90 - 5.20 m/uL 3.97 4.11 Hemoglobin 11.5 - 15.5 g/dL 10.9 (L) 12.2 Hematocrit 36.0 - 46.0 % 36.6 39.6 MCV 80.0 - 100.0 fL 92.2 96.4 MCH 26.0 - 34.0 pG 27.5 29.7 MCHC 30.5 - 36.0 g/dL 29.8 (L) 30.8 RDW-CV 11.5 - 15.0 % 12.8 13.3 Platelet Count 150 - 400 k/uL 452 (H) 251 MPV 9.0 - 12.7 fL 9.5 9.8 Absolute nRBC ANDlt;0.01 k/uL 0.00 ANDlt;0.01 Iron 41 - 186 ug/dL 17 (L) 24 (L) TIBC 232 - 386 ug/dL 271 292 Transferrin Saturation 15 - 57 % 6 (L) 8 (L) Hep C Antibody IA Negative Negative Ferritin 14.7 - 205.1 ng/mL 60.9 38.2 Magnesium 1.7 - 2.3 mg/dL 1.9 ASSESSMENT AND PLAN: Encounter Diagnosis ICD-10-CM 1. Iron deficiency E61.1 anemia resolved but iron levels still low 2. Generalized OA M15.9 HYDROcodone-Acetaminophen (NORCO) 10-325 mg per tablet HYDROcodone-Acetaminophen (NORCO) 10-325 mg per tablet HYDROcodone-Acetaminophen (NORCO) 10-325 mg per tablet 3. Degeneration of lumbar or lumbosacral intervertebral disc M51.37 HYDROcodone-Acetaminophen (NORCO) 10-325 mg per tablet HYDROcodone-Acetaminophen (NORCO) 10-325 mg per tablet HYDROcodone-Acetaminophen (NORCO) 10-325 mg per tablet 4. Anxiety in acute stress reaction F41.1 ALPRAZolam (XANAX) 0.25 mg tablet F43.0 son October 2016 5. Need for prophylactic hormone replacement therapy (postmenopausal) Z79.890 estradiol (ESTRACE) 1 mg tablet Above issues addressed with patient. Patient involved in shared decision making for management of her medical issues. History and medications reviewed. Epic updated as needed Refills taken care of and meds adjusted as indicated after reviewed history, exam and labs. Health Maintenance reviewed. Updated record and/or ordered tests as recorded. Encouraged on efforts at healthy diet and regular exercise and adequate sleep. Anemia appears resolved. Get adequate iron in diet. Monitor for signs of iron loss. Further evaluation and treatment as indicated. Stable with pain and anxiety control. No signs of diversion or abuse of medication(s); no adverse effects or adverse interactions. Continue present management. Benefits at this time outweigh the risks. [place]ARRS website checked and validated. All prescriptions have been APPROPRIATELY filled. No suspicious activity was identified.- 11/05/2017 by Rios Valle MD The majority of the visit was spent counseling and/or coordinating care for the patient. [id number]-[id number] time was at least 25 minutes. MD Kinjal Kay 10/24/2017 6:25 PM Signed Patient took all printed prescriptions (including Xanax) with her per her request. 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 Apply for twelve hours per day to affected area.Disp: 90 PatchRfl: 6 gabapentin (NEURONTIN) 300 mg capsuleTake 1 capsule by mouth three times daily.Disp: 270 capsuleRfl: 3 estradiol (ESTRACE) 1 mg tabletTake 1 tablet by mouth once daily.Disp: 90 tabletRfl: 3 HYDROcodone-Acetaminophen (NORCO) 10-325 mg per tabletTake 0.5-1 tablets by mouth every 6 hours as needed for up to 30 days. Earliest Fill Date: 10/24/17Disp: 120 tabletRfl: 0 ALPRAZolam (XANAX) 0.25 mg tabletTake 1 tablet by mouth once daily as needed for Anxiety for up to 90 days.Disp: 14 tabletRfl: 0 Omeprazole 40 mg capsuleTake 1 capsule by mouth once daily.Disp: 90 capsuleRfl: 3 meloxicam (MOBIC) 15 mg tabletTake 0.5-1 tablets by mouth once daily. With food. As directedDisp: 30 tabletRfl: 1 [START ON 11/23/2017] HYDROcodone-Acetaminophen (NORCO) 10-325 mg per tabletTake 0.5-1 tablets by mouth every 6 hours as needed for up to 30 days. Earliest Fill Date: 11/23/17Disp: 120 tabletRfl: 0 [START ON 12/23/2017] HYDROcodone-Acetaminophen (NORCO) 10-325 mg per tabletTake 0.5-1 tablets by mouth every 6 hours as needed for up to 30 days. Earliest Fill Date: 12/23/17Disp: 120 tabletRfl: 0 Prescriptions as of 10/24/2017 Sig: CLOBETASOL 0.05 % SCALP SOLUT* apply as directed once daily * LISINOPRIL 5 MG TABLET Take 1 tablet by mouth once d* LIDOCAINE 5 % TOPICAL PATCH Apply 1 Patch topically as di* GABAPENTIN 300 MG CAPSULE Take 1 capsule by mouth three* ESTRADIOL 1 MG TABLET Take 1 tablet by mouth once d* HYDROCODONE 10 MG-ACETAMINOPH* Take 0.5-1 tablets by mouth e* ALPRAZOLAM 0.25 MG TABLET Take 1 tablet by mouth once d* OMEPRAZOLE 40 MG CAPSULE,BITA* Take 1 capsule by mouth once * MELOXICAM 15 MG TABLET Take 0.5-1 tablets by mouth o* HYDROCODONE 10 MG-ACETAMINOPH* Take 0.5-1 tablets by mouth e* HYDROCODONE 10 MG-ACETAMINOPH* Take 0.5-1 tablets by mouth e* METAXALONE 800 MG TABLET Take 0.5-1 tablets by mouth t* LOXAPINE SUCCINATE 5 MG CAPSU* Take 1 capsule by mouth twice* CLOBETASOL 0.05 % TOPICAL OIN* Apply to affected area twice* DICYCLOMINE 10 MG CAPSULE Take 1 capsule by mouth befor* IRON (FERROUS SULFATE) ORAL Take by mouth. FLUTICASONE 50 MCG/ACTUATION * Use 2 Sprays in each nostril * MUPIROCIN 2 % TOPICAL OINTMENT Apply 1 application to affect* KETOCONAZOLE 2 % TOPICAL CREAM Apply 1 application to affect* ASPIRIN 325 MG TABLET Take one(1) tablet daily. CALCIUM + D 600 MG (1,500 MG)* Take one(1) tablet two(2) uriel* Medication notes this encounter ASPIRIN 325 MG TABLET >> Kinjal Taylor 10/24/2017 5:36 PM >> KINJAL TAYLOR adonis Oct 24, 2017 5:36 PM Takes occasionally MELOXICAM 15 MG TABLET >> Kinjal Taylor 10/24/2017 5:35 PM >> KINJAL TAYLOR Oct 24, 2017 5:35 PM Took a couple pills this week. 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 ALLERGIC RHINITIS NOS [J30.9] More... Generalized OA [M15.9] Degeneration of lumbar or lumbosacral intervert* Dyslipidemia (high LDL; low HDL) [E78.5] OSTEOPOROSIS NOS [M81.0] IRRITABLE COLON [K58.9] GENERALIZED ANXIETY DIS [F41.1] DEPRESSIVE DISORDER NEC [F32.9] Essential hypertension [I10] More... 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 Prescriptions ordered this encounter Disp Refills Start End CLOBETASOL 0.05 % SCALP SOLUTION 50 mL 6 10/24/2017 Sig: apply as directed once daily as needed LISINOPRIL 5 MG TABLET 90 t* 3 10/24/2017 Route: ORAL Sig: Take 1 tablet by mouth once daily. LIDOCAINE 5 % TOPICAL PATCH 90 P* 6 10/24/2017 Sig: Apply 1 Patch topically as directed to affected area(s), up to 3 patches at a time. Apply for twelve hours per day to affected area. GABAPENTIN 300 MG CAPSULE 270 * 3 10/24/2017 10/24/2018 Class: [facility] Delivery Route: ORAL Sig: Take 1 capsule by mouth three times daily. ESTRADIOL 1 MG TABLET 90 t* 3 10/24/2017 Route: ORAL Sig: Take 1 tablet by mouth once daily. HYDROCODONE 10 MG-ACETAMINOPHEN 325 * 120 * 0 10/24/2017 11/23/2017 Class: Print RX Route: ORAL Sig: Take 0.5-1 tablets by mouth every 6 hours as needed for up to 30 days. Earliest Fill Date: 10/24/17 ALPRAZOLAM 0.25 MG TABLET 14 t* 0 10/24/2017 01/22/2018 Class: Print RX Route: ORAL Sig: Take 1 tablet by mouth once daily as needed for Anxiety for up to 90 days. OMEPRAZOLE 40 MG CAPSULE,DELAYED REL* 90 c* 3 10/24/2017 Route: ORAL Sig: Take 1 capsule by mouth once daily. MELOXICAM 15 MG TABLET 30 t* 1 10/24/2017 Route: ORAL Sig: Take 0.5-1 tablets by mouth once daily. With food. As directed HYDROCODONE 10 MG-ACETAMINOPHEN 325 * 120 * 0 11/23/2017 12/23/2017 Class: Print RX Route: ORAL Sig: Take 0.5-1 tablets by mouth every 6 hours as needed for up to 30 days. Earliest Fill Date: 11/23/17 HYDROCODONE 10 MG-ACETAMINOPHEN 325 * 120 * 0 12/23/2017 01/22/2018 Class: Print RX Route: ORAL Sig: Take 0.5-1 tablets by mouth every 6 hours as needed for up to 30 days. Earliest Fill Date: 12/23/17 Medications Discontinued During This Encounter HYDROcodone-Acetaminophen (NORCO) 10* 120 * 0 08/25/2017 10/24/2017 Class: Print RX Route: ORAL Sig: Take 0.5-1 tablets by mouth every 6 hours as needed for up to 30 days. May fill on or after 08/25/2017 Disc: Reason for discontinue is not on file. HYDROcodone-Acetaminophen (NORCO) 10* 120 * 0 07/26/2017 10/24/2017 Class: Print RX Route: ORAL Sig: Take 0.5-1 tablets by mouth every 6 hours as needed for up to 30 days. May fill on or after 07/26/17 Disc: Reason for discontinue is not on file. HYDROcodone-Acetaminophen (NORCO) 10* 120 * 0 05/27/2017 10/24/2017 Class: Print RX Route: ORAL Sig: Take 0.5-1 tablets by mouth every 6 hours as needed for up to 30 days. May fill on or after 05/27/17 Disc: Reason for discontinue is not on file. HYDROcodone-Acetaminophen (NORCO) 10* 120 * 0 04/27/2017 10/24/2017 Class: Print RX Route: ORAL Sig: Take 0.5-1 tablets by mouth every 6 hours as needed for up to 30 days. May fill on or after 04/27/17 Disc: Reason for discontinue is not on file. HYDROcodone-Acetaminophen (NORCO) 10* 120 * 0 02/26/2017 10/24/2017 Class: Print RX Route: ORAL Sig: Take 0.5-1 tablets by mouth every 6 hours as needed for up to 30 days. Disc: Reason for discontinue is not on file. HYDROcodone-Acetaminophen (NORCO) 10* 120 * 0 01/27/2017 10/24/2017 Class: Print RX Route: ORAL Sig: Take 0.5-1 tablets by mouth every 6 hours as needed for up to 30 days. Disc: Reason for discontinue is not on file. HYDROcodone-Acetaminophen (NORCO) 10* 120 * 0 11/28/2016 10/24/2017 Class: Print RX Route: ORAL Sig: Take 0.5-1 tablets by mouth every 6 hours as needed for up to 30 days. Disc: Reason for discontinue is not on file. HYDROcodone-Acetaminophen (NORCO) 10* 120 * 0 10/29/2016 10/24/2017 Class: Print RX Route: ORAL Sig: Take 0.5-1 tablets by mouth every 6 hours as needed for up to 30 days. Disc: Reason for discontinue is not on file. HYDROcodone-Acetaminophen (NORCO) 10* 120 * 0 08/30/2016 10/24/2017 Class: Print RX Route: ORAL Sig: Take 0.5-1 tablets by mouth every 6 hours as needed for up to 30 days. Disc: Reason for discontinue is not on file. HYDROcodone-Acetaminophen (NORCO) 10* 120 * 0 07/31/2016 10/24/2017 Class: Print RX Route: ORAL Sig: Take 0.5-1 tablets by mouth every 6 hours as needed for up to 30 days. Disc: Reason for discontinue is not on file. HYDROcodone-Acetaminophen (NORCO) 10* 120 * 0 06/01/2016 10/24/2017 Class: Print RX Route: ORAL Sig: Take 0.5-1 tablets by mouth every 6 hours as needed for up to 30 days. Disc: Reason for discontinue is not on file. HYDROcodone-Acetaminophen (NORCO) 10* 120 * 0 05/02/2016 10/24/2017 Class: Print RX Route: ORAL Sig: Take 0.5-1 tablets by mouth every 6 hours as needed for up to 30 days. Disc: Reason for discontinue is not on file. HYDROcodone-Acetaminophen (NORCO) 10* 120 * 0 03/01/2016 10/24/2017 Class: Print RX Route: ORAL Sig: Take 0.5-1 tablets by mouth every 6 hours as needed for up to 30 days. Disc: Reason for discontinue is not on file. HYDROcodone-Acetaminophen (NORCO) 10* 120 * 0 01/31/2016 10/24/2017 Class: Print RX Route: ORAL Sig: Take 0.5-1 tablets by mouth every 6 hours as needed for up to 30 days. May fill on or after January 28 to start January 30 (leaving on vacation) Disc: Reason for discontinue is not on file. Clobetasol Propionate (TEMOVATE) 0.0* 50 mL 6 09/02/2016 10/24/2017 Sig: apply as directed once daily as needed Disc: Reason for discontinue is not on file. lisinopril (PRINIVIL) 5 mg tablet 90 t* 3 10/25/2016 10/24/2017 Route: ORAL Sig: Take 1 tablet by mouth once daily. Disc: Reason for discontinue is not on file. lidocaine (LIDODERM) 5 % 90 P* 6 10/25/2016 10/24/2017 Sig: Apply 1 Patch topically as directed to affected area(s), up to 3 patches at a time. Apply for twelve hours per day to affected area. Disc: Reason for discontinue is not on file. gabapentin (NEURONTIN) 300 mg capsule 270 * 3 10/25/2016 10/24/2017 Class: [facility] Home Delivery Route: ORAL Sig: Take 1 capsule by mouth three times daily. Disc: Reason for discontinue is not on file. estradiol (ESTRACE) 1 mg tablet 90 t* 3 10/25/2016 10/24/2017 Route: ORAL Sig: Take 1 tablet by mouth once daily. Disc: Reason for discontinue is not on file. HYDROcodone-Acetaminophen (NORCO) 10* 120 * 0 09/24/2017 10/24/2017 Class: Print RX Route: ORAL Sig: Take 0.5-1 tablets by mouth every 6 hours as needed for up to 30 days. May fill on or after 09/24/2017 Disc: Reason for discontinue is not on file. ALPRAZolam (XANAX) 0.25 mg tablet 10 t* 0 07/25/2017 10/24/2017 Class: Print RX Route: ORAL Sig: Take 1 tablet by mouth twice daily as needed for Anxiety. Disc: Reason for discontinue is not on file. Omeprazole 40 mg capsule 90 c* 0 09/14/2017 10/24/2017 Route: ORAL Sig: Take 1 capsule by mouth once daily. (Dr. No for stomach ulcers) Disc: Reason for discontinue is not on file. meloxicam (MOBIC) 15 mg tablet 30 t* 0 04/25/2017 10/24/2017 Route: ORAL Sig: Take 0.5-1 tablets by mouth once daily. With food. As directed Disc: Reason for discontinue is not on file. Disposition: Return for has 3 month follow ups. Follow-up and Disposition History Recorded Encounter Status:Closed by RIOS VALLE MD on 11/05/17 CBC Collected: 10/12/2017 Status: F Source: [place] 5:11 PM [facility] REPOSITORY TYPE CODE TESTS RESULT OUT OF REFERENCE UNITS RANGE LAB WBC 3.70-11.00 k/uL WBC 6.83 LAB RBC 3.90-5.20 m/uL RBC 4.11 LAB HGB 11.5-15.5 g/dL Hemoglobin 12.2 LAB HCT 36.0-46.0 % Hematocrit 39.6 LAB MCV 80.0-100.0 fL MCV 96.4 LAB MCH 26.0-34.0 pG MCH 29.7 LAB MCHC 30.5-36.0 g/dL MCHC 30.8 LAB RDWCV 11.5-15.0 % RDW-CV 13.3 LAB PLTCT 150-400 k/uL Platelet Count 251 LAB MPV 9.0-12.7 fL MPV 9.8 LAB ABSNUC <0.01 k/uL Absolute nRBC <0.01 Performed By: #### CBC, CMP, MG1, IRON, FERR #### [facility] [address] [place], [place] [address] COMP METABOLIC PANEL Collected: 10/12/2017 Status: F Source: [place] 5:11 PM [facility] REPOSITORY TYPE CODE TESTS RESULT OUT OF REFERENCE UNITS RANGE LAB TP 6.3-8.0 g/dL Low Protein, Total 6.1 LAB ALB 3.9-4.9 g/dL Low Albumin 3.5 LAB CA 8.5-10.2 mg/dL Calcium, Total 9.1 LAB TBIL 0.2-1.3 mg/dL Low Bilirubin, Total <0.2 LAB ALKP 32-117 U/L Alkaline Phosphatase 59 LAB AST 13-35 U/L AST 22 LAB GLU 74-99 mg/dL Glucose High 116 Result Comment: The [place] [employer] (ADA) provides guidance for cutoff values for fasting glucose and random glucose. The ADA defines fasting as no caloric intake for at least 8 hours. Fas ting plasma glucose results between 100 to 125 mg/dL indicate increased risk for diabetes (prediabetes). Fasting plasma glucose results greater than or equal to 126 mg/dL meet the criteria for diagnosis of diabetes. In the absence of unequivocal hyperglycemia, results should be confirmed by repeat testing. In a patient with classic symptoms of hyperglycemia or hyperglycemic crisis, random plasma glucose results greater than or equal to 200 mg/dL meet the criteria for diagnosis of diabetes. Reference: Standards of Medical Care in Diabetes 2016, [place] [employer]. Diabetes Care. 2016.39(Suppl 1). LAB BUN 7-21 mg/dL BUN 16 LAB CRET 0.58-0.96 mg/dL Creatinine Low 0.51 LAB NA 136-144 mmol/L Sodium 141 LAB K 3.7-5.1 mmol/L Potassium 3.9 LAB CL 97-105 mmol/L Chloride 105 LAB CO2 22-30 mmol/L CO2 25 LAB AGAP 9-18 mmol/L Anion Gap 11 LAB ALT 7-38 U/L ALT 12 LAB GFRAA eGFR- Amer. >60 LAB GFRNAA . eGFR-All Other Races >60 Result Comment: eGFR (Estimated GFR) Units of measure: mL/min/1.73 meters squared eGFR is derived from the reexpressed MDRD Study equation using the following parameters: serum creatinine, age, gender and race. The creatinine assay has been calibrated to be traceable to IDMS. An eGFR <60 mL/min/1.73m2 for >3 months is consistent with chronic kidney disease. Refer to KDOQI guidelines for clinical interpretation. In patients with unstable renal function, e.g. those with acute kidney injury, the eGFR may not accurately reflect actual GFR. Performed By: #### CBC, CMP, MG1, IRON, FERR #### [facility] [address] [place], [place] [address] MAGNESIUM Collected: 10/12/2017 Status: F Source: [place] 5:11 PM [facility] REPOSITORY TYPE CODE TESTS RESULT OUT OF REFERENCE UNITS RANGE LAB MG 1.7-2.3 mg/dL Magnesium 1.9 Performed By: #### CBC, CMP, MG1, IRON, FERR #### [facility] [address] [place], [place] [address] IRON AND TIBC Collected: 10/12/2017 Status: F Source: [place] 5:11 PM [facility] REPOSITORY TYPE CODE TESTS RESULT OUT OF REFERENCE UNITS RANGE LAB IRN 41-186 ug/dL Low Iron 24 LAB TIBC 232-386 ug/dL TIBC 292 LAB SAT 15-57 % Low Transferrin Saturatn 8 Performed By: #### CBC, CMP, MG1, IRON, FERR #### [facility] [address] [place], [place] [address] FERRITIN Collected: 10/12/2017 Status: F Source: [place] 5:11 PM [facility] REPOSITORY TYPE CODE TESTS RESULT OUT OF REFERENCE UNITS RANGE LAB FERR 14.7-205.1 ng/mL Ferritin 38.2 Performed By: #### CBC, CMP, MG1, IRON, FERR #### [facility] [address] [place], [place] [address] ALLERGIES ALLERGIES DATE TYPE / CODE NAME / CODE REACTION SEVERITY SOURCE 08/05/2018 Drug No Known Unknown [place] [facility] Allergy/416 Allergies/[id number] [facility] [id number](SNOM 0388(RXNORM) Repository ED CT) Drug NO KNOWN [facility] Class/48630 ALLERGIES [place] 1003(SNOMED Repository CT) ENCOUNTERS ENCOUNTERS ADMIT/DISCHARGE ACCOUNT ADMITTING ENCOUNTER LOCATION SOURCE NUMBER CLASS 09/05/2018/09/06/19 [id number] Ambulatory [place] [address] [facility] [place] Repository 08/07/2018/08/08/20 [id number] Ambulatory [place] [facility] [place] Repository 08/05/2018/08/06/20 [id number] Emergency [address] ing:ED Repository 07/24/2018/08/10/20 [id number] Ambulatory [address] [place] Repository 06/19/2018/06/19/20 [id number] Ambulatory [address] [place] Repository 05/24/2018 [id number] Ambulatory [facility] ing:LABSPEC Repository 05/21/2018/05/22/20 [id number] Ambulatory [address] [place] Repository 05/16/2018/05/16/20 [id number] Ambulatory [address] [place] Repository 05/03/2018/05/03/20 [id number] Ambulatory [address] [place] Repository 05/03/2018/05/04/20 [id number] Ambulatory [address] [place] Repository 04/24/2018/05/08/20 [id number] Ambulatory [place] 18 [facility] [place] Repository 04/13/2018/04/16/20 [id number] Ambulatory [place] 18 [facility] [place] Repository 04/13/2018 [id number] Ambulatory [facility] [place] Repository 04/06/2018 [id number] Ambulatory [facility] [place] Repository 04/06/2018/04/09/20 [id number] Ambulatory [place] 18 [facility] [place] Repository 03/27/2018/03/28/20 [id number] Ambulatory [place] 18 [facility] [place] Repository 01/23/2018/02/03/20 [id number] Ambulatory [place] 18 [facility] [place] Repository 10/24/2017/10/25/19 [id number] Ambulatory [place] 18 [facility] [place] Repository 10/12/2017/10/12/19 [id number] Ambulatory [place] 18 [facility] [place] Repository PAYERS PAYERS ENCOUNTER GUARANTOR PAYER SUBSCRIBER SOURCE 08/05/2018 Dee Mcallister5852 Insurance:LOBOTRonal Mcall[facility]: [id number] [id number] Repository [address]Jdz: ([phone]) Date:1439-49-26[phone] () [id number] KUMAR [phone]: 08/05/2018 Secondary NOT GIVENUNK [place] Insurance:SELF PAY [facility] Number: Effective Repository Date:2018-08-05 05/24/2018 Dee Mirza Primary Dee Mirza Ag Mcallister5852 Insurance:Nilam CmB: [facility] Number: [id number] [id number] Repository [address]Rfd: ([phone]) Date:[id number] [phone] () [id number] KUMAR [id number]: 05/24/2018 Secondary NOT GIVENUNK [place] Insurance:SELF PAY [facility] Number: Effective Repository Date:2018-05-24
== END 2018-08-06 01:43 | disposition home or self-care (01) ==
LOC: ED 23:01
PROVIDERS: Emergency Provider Emergency Medicine; Family Provider Internal Medicine; PCP Internal Medicine
DX: K52.9 Noninfective gastroenteritis and colitis, unspecified (principal); I10 Essential (primary) hypertension; Z79.899 Other long term (current) drug therapy
CPT/HCPCS: 74177; 80048; 81001; 85025; 96374; 96375; 99283; Q9967; A4216; J2405

== ENCOUNTER 2018-10-21 22:24 | Emergency (ER) | payer OTHER, SELFPAY ==
[2018-10-21 22:25] VITALS: BP 162/122; PULSE 93; RESP 18; TEMP 36.3; O2SAT 100; BMI 24.9
--- NOTE | 2018-10-21 22:34 | CT_ITS ---
HISTORY: LLQ PAIN X FEW DAYS,ELEVATED BPHX:HTN,GERD,HLD,DRAKE,COLECTOMY TECHNIQUE: Helically acquired images were obtained of the abdomen and pelvis following 100 cc Isovue-300 IV contrast. No oral contrast was administered. A radiation dose optimization technique was used for this scan. COMPARISON: 08/06/18 CT abdomen and pelvis. FINDINGS: # of images incl. paperwork: 367 Lung bases clear. No acute osseous abnormality. Prominent degenerative changes and moderate to severe right scoliosis lumbar spine. Severe atherosclerosis similar to prior, with high-grade narrowing of the celiac axis origin, and critical narrowing versus focal occlusion of the SMA origin but with reconstitution of flow after about a centimeter. More peripheral SMA branches patent. No abdominal aortic aneurysm. Left common iliac artery stent, patent. Portal and mesenteric veins patent. No free fluid or free air. Status post partial colectomy with colonic colonic anastomosis in the upper mid abdomen involving the transverse colon. As before there is mild wall thickening and luminal narrowing at this anastomosis, but with no evidence of significant obstruction. Sigmoid colon diverticulosis, no diverticulitis. Hemangioma lateral aspect right lobe of liver, other scattered hepatic hypodensities similar to prior. Gallbladder, pancreas, spleen, adrenal glands unremarkable. Several nonobstructing renal stones bilaterally, largest 7 mm on the left. No urinary bladder or ureteral stones. Status post hysterectomy. CT/Abdomen/Pelvis W IV Cont ONLY IMPRESSION: Persistent mild thickening of the transverse colonic wall at and adjacent to the colonic colonic anastomosis with mild luminal narrowing. Differential includes chronic postoperative scarring, persistent or recurrent mild colitis, with underlying colonic neoplasm not likely but possible. Severe atherosclerosis particularly of the celiac and SMA origins. This places the patient at increased risk of bowel ischemia and mesenteric claudication. There is no evidence of acute bowel ischemia on this study. Several nonobstructing bilateral renal stones, other chronic findings as above. Individualized dose optimization techniques were used for this CT. at 0033 Reported and signed by: Rivera Ross MD Electronically Signed: Rivera Ross, at 0:32 EST Tel , Service support ,
[2018-10-21 22:44] LABS: Absolute Lymphocyte Count 1.03 X10^3/ul (0.83-4.51); Absolute Neutrophil Count 10.9 X10^3/uL (2.0-7.7); Basophil# 0.01 X10^3/uL; Basophil% 0.1 % (0-1); Eosinophil# 0.06 X10^3/uL; Eosinophils% 0.5 % (0-5); Hematocrit 44.4 % (37-47); Hemoglobin 13.8 g/dl (12.0-15.0); Lymphocyte # 1.03 X10^3/ul (4.0); Lymphocyte % 8.1 % (19-41); Mean Corp Hgb Conc 31.1 g/gl (32-36); Mean Corpuscular Hgb 30.4 pg (27.0-32.0); Mean Corpuscular Volume 97.8 fL (81-99); Mean Platelet Vol. 9.2 fl (6.2-12.0); Monocyte# 0.59 X10^3/uL; Monocyte% 4.7 % (0-10); Neutrophil # 10.92 X10^3/uL (2.7-7.7); Neutrophil % 86.4 % (47-70); Platelet Count 259 K/mm3 (150-450); RBC Distribution Width CV 13.2 % (11.6-14.6); Red Blood Count 4.54 M/mm3 (4.2-5.4); White Blood Count 12.6 K/mm3 (4.4-11.0)
[2018-10-21] MEDS: 0.9% Normal Saline 1,000 ML 1000 ML IV (22:44)
[2018-10-21] MEDS: Ondansetron 4 MG/2 ML Vial IV (22:44)
[2018-10-21] MEDS: Morphine 4 MG/ML Syringe IV (22:45)
[2018-10-21 22:49] LABS: POSITIVE COUNT NO; POSITIVE DIFFERENTIAL NO; POSITIVE MORPHOLOGY NO
[2018-10-21 23:00] LABS: AST(SGOT) 20 U/L (15-37); Alanine Aminotransfer ALT/SGPT 30 U/L (13-56); Albumin, Serum 3.6 g/dL (3.2-5.0); Alkaline Phosphatase 90 U/L (45-117); Anion Gap 13 (5-15); BUN 15 mg/dL (7-18); BUN/Creat Ratio 18.2 RATIO (10-20); Calcium,Total 9.6 mg/dL (8.5-10.1); Chloride 97 mmol/L (98-107); Creatinine, Serum 0.82 mg/dL (0.55-1.02); EST Glomerular Filtration Rate 74 mL/min (>60); Est Glom Filt Rate - Afr Amer 90 mL/min (>60); Estimated Creatinine Clearance 62.89 ml/min; Globulin 3.7 g/dL (2.2-4.2); Glucose 166 mg/dL (74-106); Lipase 97 U/L (73-393); Potassium 3.7 mmol/L (3.5-5.1); Protein, Total 7.3 g/dL (6.4-8.2); Sodium Level 137 mmol/L (136-145)
[2018-10-22 00:06] VITALS: BP 207/98; PULSE 87; RESP 18; O2SAT 98
[2018-10-22 00:07] LABS: Mucous, Urine 0 SEEN /hpf (<or=2+); Red Blood Cells-Urine 0 SEEN /hpf (0-5)
[2018-10-22 00:13] LABS: Color, Urine Straw (Yellow); Glucose, Dipstick Normal (Normal); Ketone-Dipstick Negative (Negative); Leukocyte Esterase-Dipstick Negative /ul (Negative); Nitrite-Dipstick Negative (Negative); Occult Blood-Urine Negative /ul (Negative); Protein-Dipstick Negative (Negative); Specific Gravity, Urine 1.005 (1.002-1.030); Urine Bilirubin Dipstick Negative (Negative); Urine Clarity Clear (Clear); Urine Urobilinogen Normal (Normal)
[2018-10-22 00:19] LABS: Bacteria RARE /hpf (None Seen); Squamous Epithelial Cells - UA 0-5 SEEN /hpf (5-10); White Blood Cells 0-5 SEEN /hpf (0-5)
[2018-10-22 00:31] VITALS: BP 199/87
--- NOTE | 2018-10-22 00:49 | ED.VISSUMM ---
- ER Visit Summary Date of Service: 10/22/18 Chief Complaint: Abdominal pain History of Present Illness: The patient is a 63 F with ongoing abdominal pain. Pain has been going on for a while, but has gotten worse over the last 2 days. The pain is in her left lower quadrant and does not radiate. Associated with diarrhea. She denies any other associated symptoms. She has similar symptoms in the past with diverticulitis. Physical Examination: Afebrile and vital signs unremarkable except for a blood pressure of 162/122. Alert and oriented. No acute distress. Heart regular rate and rhythm. Lungs clear. Abdomen is tender in the left lower quadrant. No guarding or rebound. Skin normal in color without rash or jaundice. Test Results: White count 12.6. Blood work otherwise unremarkable. Urinalysis unremarkable. CT showed transverse colon colitis suspected. Cannot rule out malignancy. There is also atherosclerosis without evidence of ischemia. Other incidental findings are noted which are noncontributory. Emergency Department Course and Treatment: Patient treated with fluids, morphine, and Zofran. She had improvement of her symptoms. Workup shows a white count of 12.6. No other evidence of sepsis. Patient has ongoing abdominal pain and findings concerning for colitis. Patient was treated here with Cipro and Flagyl. I believe she is appropriate for outpatient follow-up. She will follow-up with her surgeon and endoscopist, Dr. No for reevaluation and further diagnostic testing. All questions were answered. Patient voiced understanding and agreement. Treatment Plan: As above Disposition: Discharge Impression: 1. Colitis This note was generated with [employer] dictation software. It may contain incorrect words, spelling, and punctuation that were not noted in review of the chart prior to signing ED Disposition - Plan for ED Patient: Referrals: Suha Valle MD [Primary Care Provider] -
--- NOTE | 2018-10-22 00:51 | ED.DEP ---
ED Disposition - Plan for ED Patient: Instructions: ED Abdominal Pain Unkn Cause Prescriptions: Metronidazole [Flagyl] 500 mg PO Q8H #21 tab Ciprofloxacin [Cipro] 500 mg PO BID #14 tab Referrals: Kendrick No MD [STAFF PHYSICIAN] -
[2018-10-22] MEDS: metroNIDAZOLE 500 MG Tablet PO (00:55)
[2018-10-22] MEDS: Ciprofloxacin 500 MG Tablet PO (00:56)
[2018-10-22 00:59] VITALS: BP 191/90; PULSE 88; RESP 18; O2SAT 99
--- NOTE | 2018-10-22 01:01 | ED.RN ---
NOTIFIED DR. VO ABOUT DISCHARGE BP. DR. VO STATES OKAY TO DISCHARGE.
== END 2018-10-22 01:03 | disposition home or self-care (01) ==
LOC: ED 22:45
PROVIDERS: Emergency Provider Emergency Medicine; Family Provider Internal Medicine; PCP Internal Medicine
DX: K52.9 Noninfective gastroenteritis and colitis, unspecified (principal); I10 Essential (primary) hypertension; Z79.52 Long term (current) use of systemic steroids; Z79.899 Other long term (current) drug therapy
CPT/HCPCS: 74177; 80053; 81001; 83690; 85025; 96361; 96374; 96375; 99284; J7030; Q9967; A4216; J2405

== ENCOUNTER 2018-10-30 15:43 | Inpatient (IN) | payer OTHER, SELFPAY ==
[2018-10-30 15:44] VITALS: BP 144/102; PULSE 144; RESP 16; TEMP 36.6; O2SAT 98; BMI 23.8
--- NOTE | 2018-10-30 16:23 | CT_ITS ---
STUDY: CT ABDOMEN AND PELVIS WITH CONTRAST REASON FOR EXAM: Female, 63 years old. Upper abdominal pain with leukocytosis RADIATION DOSAGE (If Supplied By Facility): CTDIvol = ( 13.34 ) mGy, DLP = ( 475.16 ) mGycm TECHNIQUE: Transaxial images were obtained from the dome of the diaphragm to the symphysis pubis without oral contrast. Isovue 300 100ML IV/Oral was administered. Sagittal and coronal images were reconstructed. Individualized dose optimization techniques were used for this CT. COMPARISON: 10/21/2018 FINDINGS: The visualized lung bases are unremarkable. The visualized portions of the heart are within normal limits. Peripheral enhancing low-density lesion of the anterior liver on image 30 is compatible with hemangioma, stable. Low-density lesion of the left hepatic lobe may represent cyst or hemangioma. The gallbladder is moderately distended with no pericholecystic fluid demonstrated. There is new dilation of the extrahepatic and intrahepatic bile ducts the CBD measuring up to 9.5 mm. There is also dilation of the pancreatic duct, not evident on the prior study. Normal spleen. Normal pancreas. Normal bilateral adrenal glands. Bilateral renal calculi are redemonstrated. No hydronephrosis. Somewhat striated appearance of the kidneys may represent component of ATN. Normal visualized stomach. No small bowel wall thickening is identified. High-grade stenoses of the celiac axis and (likely occlusive) superior mesenteric artery unchanged since prior study. Surgical anastomosis of bowel in the right lower abdomen is identified. There is fluid distention of the proximal colon. No colon wall thickening. There is non-visualization of the appendix. There is diffuse atherosclerotic calcification of the abdominal aorta, without a demonstrated aneurysm. Left iliac artery stent is redemonstrated. Normal inferior vena cava. Normal retroperitoneum. Normal urinary bladder. No pelvic free fluid. Uterus is surgically absent. Scoliosis and degenerative changes of the lumbar spine are unchanged. CT/Abdomen/Pelvis WITH Contrast IMPRESSION: 1. New intrahepatic and extrahepatic bile duct dilation suggesting distal biliary obstruction. MRCP or ERCP is suggested with correlation to the appropriate laboratory values. 2. Striated appearance of the kidneys suggesting contrast retention/ATN. Correlation with laboratory values/serum creatinine suggested. 3. 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 4. Additional changes, as above. Electronically Signed: Paul Grace MD at 19:23 EDT , Service support ,
[2018-10-30] MEDS: Ondansetron 4 MG/2 ML Vial IV (17:00)
[2018-10-30] MEDS: 0.9% Normal Saline 1,000 ML 1000 ML IV (17:00)
[2018-10-30] MEDS: Morphine 4 MG/ML Syringe IV (17:00)
[2018-10-30 17:17] LABS: Mucous, Urine 0 SEEN /hpf (<or=2+)
[2018-10-30 17:19] LABS: Absolute Lymphocyte Count 1.24 X10^3/ul (0.83-4.51); Absolute Neutrophil Count 14.8 X10^3/uL (2.0-7.7); Basophil# 0.01 X10^3/uL; Basophil% 0.1 % (0-1); Eosinophil# 0.02 X10^3/uL; Eosinophils% 0.1 % (0-5); Hematocrit 43.9 % (37-47); Hemoglobin 14.5 g/dl (12.0-15.0); Lymphocyte # 1.24 X10^3/ul (4.0); Lymphocyte % 7.2 % (19-41); Mean Corpuscular Volume 93.8 fL (81-99); Monocyte# 1.01 X10^3/uL; Monocyte% 5.9 % (0-10); Neutrophil % 86.5 % (47-70); Platelet Count 459 K/mm3 (150-450); RBC Distribution Width CV 13.1 % (11.6-14.6); RBC Distribution Width SD 44.3 fl (35.1-43.9); Red Blood Count 4.68 M/mm3 (4.2-5.4); White Blood Count 17.1 K/mm3 (4.4-11.0)
[2018-10-30 17:20] LABS: POSITIVE COUNT NO; POSITIVE DIFFERENTIAL NO; POSITIVE MORPHOLOGY NO
[2018-10-30 17:29] LABS: Color, Urine Yellow (Yellow); Glucose, Dipstick Normal (Normal); Ketone-Dipstick 50 mg/dl (Negative); Leukocyte Esterase-Dipstick 25 /ul (Negative); Nitrite-Dipstick Negative (Negative); Occult Blood-Urine 50 /ul (Negative); Protein-Dipstick 30 mg/dl (Negative); Specific Gravity, Urine 1.015 (1.002-1.030); Urine Bilirubin Dipstick Negative (Negative); Urine Clarity Sl. Cloudy (Clear); Urine Urobilinogen Normal (Normal)
[2018-10-30 17:33] LABS: AST(SGOT) 19 U/L (15-37); Alanine Aminotransfer ALT/SGPT 26 U/L (13-56); Albumin, Serum 3.1 g/dL (3.2-5.0); Alkaline Phosphatase 86 U/L (45-117); Anion Gap 12 (5-15); BUN 5 mg/dL (7-18); BUN/Creat Ratio 6.8 RATIO (10-20); Bilirubin, Direct 0.22 mg/dL (0.00-0.30); Calcium,Total 9.6 mg/dL (8.5-10.1); Chloride 97 mmol/L (98-107); Creatinine, Serum 0.74 mg/dL (0.55-1.02); EST Glomerular Filtration Rate 85 mL/min (>60); Est Glom Filt Rate - Afr Amer 102 mL/min (>60); Globulin 4.1 g/dL (2.2-4.2); Glucose 160 mg/dL (74-106); Lipase 79 U/L (73-393); Potassium 2.7 mmol/L (3.5-5.1); Protein, Total 7.2 g/dL (6.4-8.2); Sodium Level 138 mmol/L (136-145)
[2018-10-30 17:52] LABS: Bacteria 2+ /hpf (None Seen); Red Blood Cells-Urine 5-10 SEEN /hpf (0-5); Squamous Epithelial Cells - UA 0-5 SEEN /hpf (5-10); White Blood Cells 0-5 SEEN /hpf (0-5)
[2018-10-30 17:54] VITALS: RESP 18
[2018-10-30 19:00] VITALS: BP 147/105; PULSE 137; RESP 16; O2SAT 97
--- NOTE | 2018-10-30 20:47 | ED.VISSUMM ---
- ER Visit Summary Date of Service: 10/30/18 Chief Complaint: [Abdominal pain and addendum to initial dictation] History of Present Illness: The patient is a 63 F [presented with abdominal pain after being diagnosed with colitis about 2 weeks ago. Care of patient turned over to me awaiting lab results, CT results and final disposition. Patient apparently is been having vomiting and diarrhea. Patient had finished her Cipro and Flagyl and just yesterday was started again on Levaquin and Flagyl. Patient continues to complain of mid abdomen pain. ] Physical Examination: [HEENT-PERRLA, EOMI. Cranial nerves II through XII grossly intact. TMs clear. Mucous membranes dry. No adenopathy. Cardiovascular-regular and tachycardic Lungs-clear to auscultation, chest wall stable without crepitus or subcu emphysema Abdomen-normoactive bowel sounds, soft. Patient has diffuse mid abdomen tenderness on palpation with some guarding. There is no rebound, rigidity, or perineal signs. Extremities-intact ?4, normal range of motion, normal pulses, atraumatic] Test Results: [CBC with differential showed a white count 17.1, hemoglobin 14, hematocrit 44, platelets 459. Chemistries unremarkable. LFTs were normal lipase was normal. CT scan of the abdomen pelvis showed new intrahepatic and extrahepatic bile duct dilatation suggesting distal biliary obstruction MRCP or ERCP is suggested with correlation to appropriate lab values. Patient also had a high grade celiac axis and likely occlusive superior mesenteric artery stenosis. Patient had striated appearance of kidney suggesting contrast retention/ATN.] Emergency Department Course and Treatment: [Patient received normal saline in the department and case was discussed with general surgeon on-call Dr. Vaughn who evaluated patient in the emergency department and will admit patient] Treatment Plan: [Admit] Disposition: [Admit] Impression: [Abdominal pain Biliary obstruction Occlusive superior mesenteric artery stenosis Hypokalemia Dehydration] This note was generated with [employer] dictation software. It may contain incorrect words, spelling, and punctuation that were not noted in review of the chart prior to signing ED Disposition - Plan for ED Patient: Referrals: Suha Valle MD [Primary Care Provider] -
--- NOTE | 2018-10-30 20:48 | US_ITS ---
STUDY: ABDOMINAL ULTRASOUND - RIGHT UPPER QUADRANT REASON FOR VISIT: Female, 63 years old. Epigastric pain TECHNIQUE: Ultrasound evaluation of the right upper quadrant was performed with real-time and static tillman-scale imaging. TECHNICAL QUALITY: Adequate. COMPARISON: None. FINDINGS: Liver: The liver measures 14.4 cm. There is normal echogenicity of the liver. The bile ducts are within normal limits. There is hepatic color flow. The direction of portal flow is hepatopetal. There is a right hepatic echogenic 2.5 x 1.2 x 1.4 cm nodule, suggestive for a hemangioma. Hypoechoic left hepatic 10 x 8 mm septated cystic nodule. Gallbladder: Moderately distended gallbladder. The gallbladder wall measures 2 mm. There is a negative sonographic Pierce's sign. There is no pericholecystic fluid. There are no gallstones. Gallbladder sludge is noted. Common Bile Duct (C.B.D.): The common bile duct measures 10 mm. Pancreas: Normal size of the head, body and tail of the pancreas. There is normal echogenicity of the pancreas. There is no demonstrated pancreatic mass or cyst. Borderline pancreatic ductal prominence. Right Kidney: Normal size of the right kidney. The right kidney measures 10.0 x 4.6 x 4.6 cm. Normal renal cortex. The right cortex measures 1.4 cm. There is no demonstrated renal mass or cyst. Multiple nonobstructing stones of the 7 mm. There is no right hydronephrosis. US/Gallbladder IMPRESSION: Probable right hepatic hemangioma. Complex septated left hepatic cystic nodule. Multiple nonobstructive right renal stones. Moderately distended gallbladder with sludge. Dilated common bile duct. Borderline pancreatic ductal prominence. Electronically Signed: Daniel Cordova DO at 22:37 EDT Tel [phone], Service support ,
--- NOTE | 2018-10-30 20:50 | ED.DCSUM_ITS ---
- ER Visit Summary Date of Service: 10/30/18 Chief Complaint: [Abdominal pain and addendum to initial dictation] History of Present Illness: The patient is a 63 F [presented with abdominal pain after being diagnosed with colitis about 2 weeks ago. Care of patient turned over to me awaiting lab results, CT results and final disposition. Patient apparently is been having vomiting and diarrhea. Patient had finished her Cipro and Flagyl and just yesterday was started again on Levaquin and Flagyl. Patien t continues to complain of mid abdomen pain. ] Physical Examination: [HEENT-PERRLA, EOMI. Cranial nerves II through XII grossly intact. TMs clear. Mucous membranes dry. No adenopathy. Cardiovascular-regular and tachycardic Lungs-clear to auscultation, chest wall stable without crepitus or subcu emphysema Abdomen-normoactive bowel sounds, soft. Patient has diffuse mid abdomen tenderness on palpation with some guarding. There is no rebound, rigidity, or perineal signs. Extremities-intact ?4, normal range of motion, normal pulses, atraumatic] Test Results: [CBC with differential showed a white count 17.1, hemoglobin 14, hematocrit 44, platelets 459. Chemistries unremarkable. LFTs were normal lipase was normal. CT scan of the abdomen pelvis showed new intrahepatic and extrahepatic bile duct dilatation suggesting distal biliary obstruction MRCP or ERCP is suggested with correlation to appropriate lab values. Patient also had a high grade celiac axis and likely occlusive superior mesenteric artery stenosis. Patient had striated appearance of kidney suggesting contrast retention/ATN.] Emergency Department Course and Treatment: [Patient received normal saline in the department and case was discussed with general surgeon on-call Dr. Vaughn who evaluated patient in the emergency department and will admit patient] Treatment Plan: [Admit] Disposition: [Admit] Impression: [Abdominal pain Biliary obstruction Occlusive superior mesenteric artery stenosis Hypokalemia Dehydration] This note was generated with [employer] software. It may contain incorrect words, spelling, and punctuation that were not noted in review of the chart prior to signing ED Disposition - Plan for ED Patient: Referrals: Suha Valle MD [Primary Care Provider] -
--- NOTE | 2018-10-30 20:54 | EKG12_ITS ---
Test Reason : Blood Pressure : / mmHG Vent. Rate : 129 BPM Atrial Rate : 129 BPM P-R Int : 122 ms QRS Dur : 068 ms QT Int : 332 ms P-R-T Axes : 037 013 041 degrees QTc Int : 486 ms Sinus tachycardia Left atrial enlargement Borderline ECG Confirmed by ANDRIY DANIELS, RACHAEL ([id number]), continuity editor KARAN MONTGOMERY ([id number]) on 11/01/2018 11:20:48 AM Referred By: Shailesh Santos Confirmed By:RACHAEL ASHRAF MD
--- NOTE | 2018-10-30 21:00 | PCM.HP.STD ---
Problem List (1) Common bile duct dilation Status: Acute History of Present Illness Date of Admission: 10/30/18 The patient is a 63 year old F who was previously being treated for colitis for the last 10 days. Patient had a CT scan on the third of this month which showed thickened transverse colon. She was started on Cipro and Flagyl. The patient notes that she is still having some left lower quadrant pain but her CT was normal in that area. Patient notes that for the last 2 days she has been having epigastric pain with nausea but no vomiting. She says this is new. Past Medical History Allergies No Known Allergies Allergy (Verified 10/30/18 15:45) Home Medications: Ambulatory Orders Medication Instructions Recorded Carvedilol 1 tab PO BID 10/21/18 Metronidazole [Flagyl] 500 mg PO Q8H #21 tab 10/22/18 ALPRAZolam [Xanax] 0.25 mg PO QHS PRN PRN 10/30/18 Estradiol 1 mg PO DAILY 10/30/18 Gabapentin [Neurontin] 300 mg PO TIDCM 10/30/18 Hydrocodone/Acetaminophen [[place] 1 each PO Q6H PRN PRN 10/30/18 10-325 Tablet] Lidocaine [Lidoderm] 1 each TP BID 10/30/18 Loxapine Succinate [Loxapine] 5 mg PO BID 10/30/18 Oxycodone HCl/Acetaminophen 1 each PO Q4H PRN PRN 10/30/18 [Percocet 5-325 mg Tablet] levoFLOXacin tablet [Levaquin 750 mg PO DAILY 10/30/18 tablet] Surgical History: - - Hysterectomy, ileocecectomy Smoking Status: Former smoker Alcohol: None - *Family History Maternal History Items: No pertinent history Review of Systems Constitutional: Reports: Anorexia HEENT: Denies: Difficulty Swallowing Cardiovascular: Denies: Chest Pain Respiratory: Denies: Cough, Shortness of Breath Gastrointestinal: Reports: Abdominal Pain, Diarrhea, Nausea. Denies: Hematemesis, Hematochezia, Vomiting Genitourinary: Denies: Dysuria Skin: Denies: Jaundice, Rash Neurological: Denies: Balance problems Hematologic/ Lymphatic: Denies: Anemia VTE Information - Inpt Only VTE Present on Admission: No VTE Mechan Device Prophylaxis: SCD's Patient Problems: Active and Suspected Problems Common bile duct dilation (Acute) - Physical Exam General: Alert, Oriented x3, Cooperative, No apparent distress HEENT: Atraumatic, PERRLA, EOMI, Normocephalic Oral: Dry Mucosa Neck: No JVD Lungs: Normal air movement Cardiovascular: Regular Rhythm, Tachycardic Abdomen: Soft, Non-Distended, Tender - Epigastric and left lower quadrant. No guarding or rebound. Extremities: No clubbing Skin: No breakdown Musculoskeletal: No Muscle Wasting Lymphatic: No Cervical, Supraclavicular, or Inguinal Adenopathy Neurological: Cranial nerves II-XII grossly intact Psych/Mental Status: Normal Affect Vital Signs Temp Pulse Resp BP Pulse Ox 98 F 137 H 16 147/105 H 97 10/30/18 15:44 10/30/18 19:00 10/30/18 19:00 10/30/18 19:00 10/30/18 19:00 Oxygen Delivery Method Room Air Weight: 118 lb Body Mass Index (BMI) 23.8 Laboratory Tests Past 24 Hrs 10/30/18 10/30/18 10/30/18 16:50 17:00 17:00 WBC 17.1 H RBC 4.68 Hgb 14.5 Hct 43.9 MCV 93.8 MCH 31.0 MCHC 33.0 RDW 13.1 RDW Differential 44.3 H Plt Count 459 H MPV 9.0 Immature Gran % (Auto) 0.200 Neut % (Auto) 86.5 H Lymph % (Auto) 7.2 L [place] % (Auto) 5.9 Eos % (Auto) 0.1 Baso % (Auto) 0.1 Absolute Neuts (auto) 14.8 H Absolute Lymphs (auto) 1.24 Total Counted Not Reportable Sodium 138 Potassium 2.7 L* Chloride 97 L Carbon Dioxide 29.0 Anion Gap 12 BUN 5 L Creatinine 0.74 Estim Creat Clear Calc 66.60 Est GFR (MDRD) Af Amer 102 Est GFR (MDRD) Non-Af 85 BUN/Creatinine Ratio 6.8 L Glucose 160 H Calcium 9.6 Total Bilirubin 0.70 Direct Bilirubin 0.22 AST 19 ALT 26 Alkaline Phosphatase 86 Total Protein 7.2 Albumin 3.1 L Globulin 4.1 Lipase 79 Urine Color Yellow Urine Clarity Sl. Cloudy Urine pH 6.0 Ur Specific [place] 1.015 Urine Protein 30 H Urine Glucose (UA) Normal Urine Ketones 50 H Urine Occult Blood 50 H Urine Nitrite Negative Urine Bilirubin Negative Urine Urobilinogen Normal Ur Leukocyte Esterase 25 H Urine RBC 5-10 SEEN Urine WBC 0-5 SEEN Ur Squamous Epith Cells 0-5 SEEN Urine Bacteria 2+ Urine Mucus 0 SEEN Clinical Impression(s) from Imaging Studies Abdomen/Pelvis CT 10/30/18 16:23 IMPRESSION: 1. New intrahepatic and extrahepatic bile duct dilation suggesting distal biliary obstruction. MRCP or ERCP is suggested with correlation to the appropriate laboratory values. 2. Striated appearance of the kidneys suggesting contrast retention/ATN. Correlation with laboratory values/serum creatinine suggested. 3. 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 4. Additional changes, as above. Electronically Signed: Paul Grace MD at 19:23 EDT , Service support , Assessment/Plan All Active Problems Common bile duct dilation (Acute) Gastric ulcer (Acute) 63-year-old female with sepsis and dilated common bile duct 1. The patient was treated for colitis and has been having diarrhea for the last month. The only new issue she has been having his epigastric pain as well as nausea. This is been going on for [address] scan shows dilated common bile duct which is new since the last CT 10 days ago. Patient also has a distended gallbladder. There is no thickening of the colon noted on CT scan. 2. I will order an ultrasound of the gallbladder and admit the patient for observation. She will be given a bolus and started on empiric antibiotics for her leukocytosis. Lactic acid is pending. Hypokalemia will be replaced. I will keep the patient n.p.o. on ice chips and recheck morning labs. If LFTs increase she will be taken for ERCP in the morning. Shailesh Santos MD Pager: [facility] [address] [place] [address], [address] [place] [phone] Office:
--- NOTE | 2018-10-30 21:04 | HP.PCM_ITS ---
Problem List (1) Common bile duct dilation Status: Acute History of Present Illness Date of Admission: 10/30/18 The patient is a 63 year old F who was previously being treated for colitis for the last 10 days. Patient had a CT scan on the third of this month which showed thickened transverse colon. She was started on Cipro and Flagyl. The patient notes that she is still having some left lower quadrant pain but her CT was normal in that area. Patient notes that for the last 2 days she has been having epigastric pain with nausea but no vomiting. She says this is new. Past Medical History Allergies No Known Allergies Allergy (Verified 10/30/18 15:45) Home Medications: Ambulatory Orders Medication Instructions Recorded Carvedilol 1 tab PO BID 10/21/18 Metronidazole [Flagyl] 500 mg PO Q8H #21 tab 10/22/18 ALPRAZolam [Xanax] 0.25 mg PO QHS PRN PRN 10/30/18 Estradiol 1 mg PO DAILY 10/30/18 Gabapentin [Neurontin] 300 mg PO TIDCM 10/30/18 Hydrocodone/Acetaminophen [[place] 1 each PO Q6H PRN PRN 10/30/18 10-325 Tablet] Lidocaine [Lidoderm] 1 each TP BID 10/30/18 Loxapine Succinate [Loxapine] 5 mg PO BID 10/30/18 Oxycodone HCl/Acetaminophen 1 each PO Q4H PRN PRN 10/30/18 [Percocet 5-325 mg Tablet] levoFLOXacin tablet [Levaquin 750 mg PO DAILY 10/30/18 tablet] Surgical History: - - Hysterectomy, ileocecectomy Smoking Status: Former smoker Alcohol: None - *Family History Maternal History Items: No pertinent history Review of Systems Constitutional: Reports: Anorexia HEENT: Denies: Difficulty Swallowing Cardiovascular: Denies: Chest Pain Respiratory: Denies: Cough, Shortness of Breath Gastrointestinal: Reports: Abdominal Pain, Diarrhea, Nausea. Denies: Hematemesis, Hematochezia, Vomiting Genitourinary: Denies: Dysuria Skin: Denies: Jaundice, Rash Neurological: Denies: Balance problems Hematologic/ Lymphatic: Denies: Anemia VTE Information - Inpt Only VTE Present on Admission: No VTE Mechan Device Prophylaxis: SCD's Patient Problems: Active and Suspected Problems Common bile duct dilation (Acute) - Physical Exam General: Alert, Oriented x3, Cooperative, No apparent distress HEENT: Atraumatic, PERRLA, EOMI, Normocephalic Oral: Dry Mucosa Neck: No JVD Lungs: Normal air movement Cardiovascular: Regular Rhythm, Tachycardic Abdomen: Soft, Non-Distended, Tender - Epigastric and left lower quadrant. No guarding or rebound. Extremities: No clubbing Skin: No breakdown Musculoskeletal: No Muscle Wasting Lymphatic: No Cervical, Supraclavicular, or Inguinal Adenopathy Neurological: Cranial nerves II-XII grossly intact Psych/Mental Status: Normal Affect Vital Signs Temp Pulse Resp BP Pulse Ox 98 F 137 H 16 147/105 H 97 10/30/18 15:44 10/30/18 19:00 10/30/18 19:00 10/30/18 19:00 10/30/18 19:00 Oxygen Delivery Method Room Air Weight: 118 lb Body Mass Index (BMI) 23.8 Laboratory Tests Past 24 Hrs 10/30/18 10/30/18 10/30/18 16:50 17:00 17:00 WBC 17.1 H RBC 4.68 Hgb 14.5 Hct 43.9 MCV 93.8 MCH 31.0 MCHC 33.0 RDW 13.1 RDW Differential 44.3 H Plt Count 459 H MPV 9.0 Immature Gran % (Auto) 0.200 Neut % (Auto) 86.5 H Lymph % (Auto) 7.2 L [place] % (Auto) 5.9 Eos % (Auto) 0.1 Baso % (Auto) 0.1 Absolute Neuts (auto) 14.8 H Absolute Lymphs (auto) 1.24 Total Counted Not Reportable Sodium 138 Potassium 2.7 L* Chloride 97 L Carbon Dioxide 29.0 Anion Gap 12 BUN 5 L Creatinine 0.74 Estim Creat Clear Calc 66.60 Est GFR (MDRD) Af Amer 102 Est GFR (MDRD) Non-Af 85 BUN/Creatinine Ratio 6.8 L Glucose 160 H Calcium 9.6 Total Bilirubin 0.70 Direct Bilirubin 0.22 AST 19 ALT 26 Alkaline Phosphatase 86 Total Protein 7.2 Albumin 3.1 L Globulin 4.1 Lipase 79 Urine Color Yellow Urine Clarity Sl. Cloudy Urine pH 6.0 Ur Specific [place] 1.015 Urine Protein 30 H Urine Glucose (UA) Normal Urine Ketones 50 H Urine Occult Blood 50 H Urine Nitrite Negative Urine Bilirubin Negative Urine Urobilinogen Normal Ur Leukocyte Esterase 25 H Urine RBC 5-10 SEEN Urine WBC 0-5 SEEN Ur Squamous Epith Cells 0-5 SEEN Urine Bacteria 2+ Urine Mucus 0 SEEN Clinical Impression(s) from Imaging Studies Abdomen/Pelvis CT 10/30/18 16:23 IMPRESSION: 1. New intrahepatic and extrahepatic bile duct dilation suggesting distal biliary obstruction. MRCP or ERCP is suggested with correlation to the appropriate laboratory values. 2. Striated appearance of the kidneys suggesting contrast retention/ATN. Correlation with laboratory values/serum creatinine suggested. 3. 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 4. Additional changes, as above. Electronically Signed: Paul Grace MD at 19:23 EDT , Service support , Assessment/Plan All Active Problems Common bile duct dilation (Acute) Gastric ulcer (Acute) 63-year-old female with sepsis and dilated common bile duct 1. The patient was treated for colitis and has been having diarrhea for the last month. The only new issue she has been having his epigastric pain as well as nausea. This is been going on for [address] scan shows dilated common bile duct which is new since the last CT 10 days ago. Patient also has a distended gallbladder. There is no thickening of the colon noted on CT scan. 2. I will order an ultrasound of the gallbladder and admit the patient for observation. She will be given a bolus and started on empiric antibiotics for her leukocytosis. Lactic acid is pending. Hypokalemia will be replaced. I will keep the patient n.p.o. on ice chips and recheck morning labs. If LFTs increase she will be taken for ERCP in the morning. Shailesh Santos MD Pager: [facility] [address] [place] [address], [address] [place] [phone] Office:
[2018-10-30] MEDS: 0.9% Normal Saline 1,000 ML 999 ML IV (21:11)
[2018-10-30 22:15] LABS: Lactic Acid 2.3 mmol/L (0.4-2.0)
[2018-10-30] MEDS: HYDROmorphone 1 MG/ML Syringe IV (22:53)
[2018-10-30 22:54] VITALS: BP 166/92; PULSE 128; RESP 20; O2SAT 97
[2018-10-30 23:25] VITALS: BMI 24.2
[2018-10-30 23:35] VITALS: BMI 24.1
[2018-10-30] MEDS: 0.9% Normal Saline 1,000 ML 125 ML IV (23:46)
[2018-10-30] MEDS: Potassium Chloride 10mEq/100mL 10 MEQ/100 ML IV.SOLN. 100 MEQ IV BOLUS (23:46)
[2018-10-30 23:47] VITALS: BP 169/89; PULSE 121; RESP 18; TEMP 37.3; O2SAT 98
[2018-10-31] VITALS (13 sets, daily range): BP systolic 121–150; BP diastolic 75–91; PULSE 106–125; RESP 16–18; TEMP 36.6–37.2; O2SAT 94–96
[2018-10-31] MEDS: Carvedilol 3.125 MG TABLET PO ×2 (00:20→22:45)
[2018-10-31] MEDS: 0.9% Normal Saline 1,000 ML 999 ML IV (00:44)
[2018-10-31] MEDS: Potassium Chloride 10mEq/100mL 10 MEQ/100 ML IV.SOLN. 100 MEQ IV BOLUS ×3 (00:46→03:07)
[2018-10-31] MEDS: Piperacil/Tazobactam 3.375 GM/50 ML ML IV ×2 (01:10→05:55)
[2018-10-31 01:41] LABS: Reflex Lactate? Y
[2018-10-31 02:19] LABS: Absolute Lymphocyte Count 0.97 X10^3/ul (0.83-4.51); Absolute Neutrophil Count 18.6 X10^3/uL (2.0-7.7); Basophil# 0.02 X10^3/uL; Basophil% 0.1 % (0-1); Differential Indicated SCAN CRITERIA MET; Hematocrit 39.7 % (37-47); Hemoglobin 13.2 g/dl (12.0-15.0); Lymphocyte # 0.97 X10^3/ul (4.0); Lymphocyte % 4.6 % (19-41); Mean Corp Hgb Conc 33.2 g/gl (32-36); Mean Corpuscular Hgb 31.2 pg (27.0-32.0); Mean Corpuscular Volume 93.9 fL (81-99); Mean Platelet Vol. 8.6 fl (6.2-12.0); Monocyte# 1.62 X10^3/uL; Monocyte% 7.6 % (0-10); Neutrophil # 18.59 X10^3/uL (2.7-7.7); Neutrophil % 87.5 % (47-70); POSITIVE COUNT NO; POSITIVE DIFFERENTIAL YES; POSITIVE MORPHOLOGY NO; Platelet Count 340 K/mm3 (150-450); RBC Distribution Width CV 13.2 % (11.6-14.6); RBC Distribution Width SD 45.2 fl (35.1-43.9); Red Blood Count 4.23 M/mm3 (4.2-5.4); White Blood Count 21.3 K/mm3 (4.4-11.0)
[2018-10-31 02:39] LABS: ALB/GLOB Ratio 0.7 RATIO (0.9-2.4); AST(SGOT) 20 U/L (15-37); Alanine Aminotransfer ALT/SGPT 20 U/L (13-56); Albumin, Serum 2.5 g/dL (3.2-5.0); Alkaline Phosphatase 69 U/L (45-117); Anion Gap 8 (5-15); BUN 4 mg/dL (7-18); BUN/Creat Ratio 8.4 RATIO (10-20); Calcium,Total 7.9 mg/dL (8.5-10.1); Chloride 104 mmol/L (98-107); Creatinine, Serum 0.47 mg/dL (0.55-1.02); EST Glomerular Filtration Rate 141 mL/min (>60); Est Glom Filt Rate - Afr Amer 171 mL/min (>60); Estimated Creatinine Clearance 106.39 ml/min; Globulin 3.5 g/dL (2.2-4.2); Glucose 122 mg/dL (74-106); Lactic Acid 2.5 mmol/L (0.4-2.0); Magnesium 1.3 mg/dL (1.6-2.6); Phosphorus 1.7 mg/dL (2.5-4.9); Potassium 3.6 mmol/L (3.5-5.1); Sodium Level 136 mmol/L (136-145)
[2018-10-31] MEDS: Morphine 2 MG/ML Syringe IV ×5 (04:00→20:30)
[2018-10-31] MEDS: 0.9% NaCl Peripheral Flush Adult/Peds IV ×4 (04:01→20:29)
[2018-10-31] MEDS: 0.9% Normal Saline 1,000 ML 150 ML IV ×3 (06:51→22:13)
--- NOTE | 2018-10-31 07:50 | RAD_ITS ---
STUDY: X-RAY - ABDOMEN/PELVIS REASON FOR EXAM: Female, 63 years old. Nasogastric tube placement. TECHNIQUE: Single AP view of the abdomen / pelvis. COMPARISON: None. FINDINGS: The tip of the nasogastric tube is in the fundal portion of the stomach. There is an unremarkable bowel gas pattern. The visualized liver, spleen and kidneys are grossly normal in size and morphology. Normal soft tissue structures. There are diffuse degenerative changes of the visualized lumbar spine. Dextroscoliosis. RAD/Abdomen Single View IMPRESSION: The tip of the nasogastric tube is in the fundal portion of the stomach. Nonspecific bowel gas pattern. Electronically Signed: Fredy Barker, at 14:17 EDT , Service support ,
--- NOTE | 2018-10-31 08:29 | PCM.PN.SRG ---
Patient Problems: Active and Suspected Problems Common bile duct dilation (Acute) Subjective: Pt's presentation reviewed at request of Dr Santos. She was seen the ER 3/4 with c/o LLQ abdominal pain and some diarrhea. A dx of colitis was made and she was started on cipro/flagyl. The diarrhea escalated and the LLQ pain persisted and worsened as well. Still able to eat. Very liquid stools. No blood or mucous. No fever at home. Last night nausea and epigastric pain H/O active PUD with pyloric channel inflammation and stenosis and gastric outlet obstruction. 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 On 04/25/17 and 08/01/17 EGDs demonstrate these active findings. Pts states she has been taking her omeprazole. She states no alcohol for 2 weeks. - Physical Exam Abdomen: Soft, Distended - tinkles, rushes, mid tenderness LLQ, no mass or guarding or rebound Vital Signs Temp Pulse Resp BP Pulse Ox 97.8 F 115 H 18 150/91 H 94 10/31/18 04:42 10/31/18 07:09 10/31/18 04:42 10/31/18 04:42 10/31/18 04:42 Oxygen Delivery Method Room Air Weight: 119 lb 11.376 oz Body Mass Index (BMI) 24.1 Intake and Output for Last 24 Hours 10/29/18 10/30/18 10/31/18 23:59 23:59 23:59 Intake Total 2118.3 / 2118.3 Output Total 100 / 100 Balance 2017.3 / 2017.3 Laboratory Tests Past 24 Hrs 10/30/18 10/30/18 10/30/18 16:50 17:00 17:00 WBC 17.1 H RBC 4.68 Hgb 14.5 Hct 43.9 MCV 93.8 MCH 31.0 MCHC 33.0 RDW 13.1 RDW Differential 44.3 H Plt Count 459 H MPV 9.0 Immature Gran % (Auto) 0.200 Neut % (Auto) 86.5 H Lymph % (Auto) 7.2 L [place] % (Auto) 5.9 Eos % (Auto) 0.1 Baso % (Auto) 0.1 Absolute Neuts (auto) 14.8 H Absolute Lymphs (auto) 1.24 Total Counted Not Reportable Diff Path Review Sodium 138 Potassium 2.7 L* Chloride 97 L Carbon Dioxide 29.0 Anion Gap 12 BUN 5 L Creatinine 0.74 Estim Creat Clear Calc 66.60 Est GFR (MDRD) Af Amer 102 Est GFR (MDRD) Non-Af 85 BUN/Creatinine Ratio 6.8 L Glucose 160 H Lactic Acid Calcium 9.6 Phosphorus Magnesium Total Bilirubin 0.70 Direct Bilirubin 0.22 AST 19 ALT 26 Alkaline Phosphatase 86 Total Protein 7.2 Albumin 3.1 L Globulin 4.1 Albumin/Globulin Ratio Lipase 79 Urine Color Yellow Urine Clarity Sl. Cloudy Urine pH 6.0 Ur Specific [place] 1.015 Urine Protein 30 H Urine Glucose (UA) Normal Urine Ketones 50 H Urine Occult Blood 50 H Urine Nitrite Negative Urine Bilirubin Negative Urine Urobilinogen Normal Ur Leukocyte Esterase 25 H Urine RBC 5-10 SEEN Urine WBC 0-5 SEEN Ur Squamous Epith Cells 0-5 SEEN Urine Bacteria 2+ Urine Mucus 0 SEEN 10/30/18 10/31/18 10/31/18 21:35 02:06 02:06 WBC 21.3 H RBC 4.23 Hgb 13.2 Hct 39.7 MCV 93.9 MCH 31.2 MCHC 33.2 RDW 13.2 RDW Differential 45.2 H Plt Count 340 MPV 8.6 Immature Gran % (Auto) 0.200 Neut % (Auto) 87.5 H Lymph % (Auto) 4.6 L [place] % (Auto) 7.6 Eos % (Auto) 0.0 Baso % (Auto) 0.1 Absolute Neuts (auto) 18.6 H Absolute Lymphs (auto) 0.97 Total Counted Not Reportable Diff Path Review May foll Sodium 136 Potassium 3.6 Chloride 104 Carbon Dioxide 24.0 Anion Gap 8 BUN 4 L Creatinine 0.47 L Estim Creat Clear Calc 106.39 Est GFR (MDRD) Af Amer 171 Est GFR (MDRD) Non-Af 141 BUN/Creatinine Ratio 8.4 L Glucose 122 H Lactic Acid 2.3 H Calcium 7.9 L Phosphorus 1.7 L Magnesium 1.3 L Total Bilirubin 0.40 Direct Bilirubin AST 20 ALT 20 Alkaline Phosphatase 69 Total Protein 6.0 L Albumin 2.5 L Globulin 3.5 Albumin/Globulin Ratio 0.7 L Lipase Urine Color Urine Clarity Urine pH Ur Specific [place] Urine Protein Urine Glucose (UA) Urine Ketones Urine Occult Blood Urine Nitrite Urine Bilirubin Urine Urobilinogen Ur Leukocyte Esterase Urine RBC Urine WBC Ur Squamous Epith Cells Urine Bacteria Urine Mucus 10/31/18 02:06 WBC RBC Hgb Hct MCV MCH MCHC RDW RDW Differential Plt Count MPV Immature Gran % (Auto) Neut % (Auto) Lymph % (Auto) [place] % (Auto) Eos % (Auto) Baso % (Auto) Absolute Neuts (auto) Absolute Lymphs (auto) Total Counted Diff Path Review Sodium Potassium Chloride Carbon Dioxide Anion Gap BUN Creatinine Estim Creat Clear Calc Est GFR (MDRD) Af Amer Est GFR (MDRD) Non-Af BUN/Creatinine Ratio Glucose Lactic Acid 2.5 H Calcium Phosphorus Magnesium Total Bilirubin Direct Bilirubin AST ALT Alkaline Phosphatase Total Protein Albumin Globulin Albumin/Globulin Ratio Lipase Urine Color Urine Clarity Urine pH Ur Specific [place] Urine Protein Urine Glucose (UA) Urine Ketones Urine Occult Blood Urine Nitrite Urine Bilirubin Urine Urobilinogen Ur Leukocyte Esterase Urine RBC Urine WBC Ur Squamous Epith Cells Urine Bacteria Urine Mucus Medical Necessity - Tobacco Use Smoking Status: Former smoker Assessment/Plan All Active Problems Common bile duct dilation (Acute) Gastric ulcer (Acute) I suspect chronic GOO from active PUD.. Recommend ngt to assess output and possible improvement in nausea Suspect likely c. diff--this would correlate well with tachycardia and leukocytosis. Stool is being sent and oral vanc initiated Pt does not have an acute surgical abdomen at this time
--- NOTE | 2018-10-31 08:44 | PCM.PN.SRG ---
Patient Problems: Active and Suspected Problems Common bile duct dilation (Acute) Subjective: Patient reports that she did have one diarrhea bowel movement yesterday evening. She is still complaining of mild left lower quadrant and epigastric pain. She still has nausea but no vomiting. - Physical Exam General: Alert, Oriented x3, Cooperative, No apparent distress HEENT: Atraumatic Neck: No JVD Lungs: Normal air movement Cardiovascular: Regular Rhythm, Tachycardic Abdomen: Soft, Non-Distended, Tender - Tender in the left lower quadrant and epigastric area with no rebound or guarding Extremities: No clubbing Skin: No breakdown Musculoskeletal: No Muscle Wasting Neurological: Cranial nerves II-XII grossly intact Psych/Mental Status: Normal Affect Vital Signs Temp Pulse Resp BP Pulse Ox 97.8 F 115 H 18 150/91 H 94 10/31/18 04:42 10/31/18 07:09 10/31/18 04:42 10/31/18 04:42 10/31/18 04:42 Oxygen Delivery Method Room Air Weight: 119 lb 11.376 oz Body Mass Index (BMI) 24.1 Intake and Output for Last 24 Hours 10/29/18 10/30/18 10/31/18 23:59 23:59 23:59 Intake Total 2118.3 / 2118.3 Output Total 100 / 100 Balance 2017.3 / 2017.3 Laboratory Tests Past 24 Hrs 10/30/18 10/30/18 10/30/18 16:50 17:00 17:00 WBC 17.1 H RBC 4.68 Hgb 14.5 Hct 43.9 MCV 93.8 MCH 31.0 MCHC 33.0 RDW 13.1 RDW Differential 44.3 H Plt Count 459 H MPV 9.0 Immature Gran % (Auto) 0.200 Neut % (Auto) 86.5 H Lymph % (Auto) 7.2 L [place] % (Auto) 5.9 Eos % (Auto) 0.1 Baso % (Auto) 0.1 Absolute Neuts (auto) 14.8 H Absolute Lymphs (auto) 1.24 Total Counted Not Reportable Diff Path Review Sodium 138 Potassium 2.7 L* Chloride 97 L Carbon Dioxide 29.0 Anion Gap 12 BUN 5 L Creatinine 0.74 Estim Creat Clear Calc 66.60 Est GFR (MDRD) Af Amer 102 Est GFR (MDRD) Non-Af 85 BUN/Creatinine Ratio 6.8 L Glucose 160 H Lactic Acid Calcium 9.6 Phosphorus Magnesium Total Bilirubin 0.70 Direct Bilirubin 0.22 AST 19 ALT 26 Alkaline Phosphatase 86 Total Protein 7.2 Albumin 3.1 L Globulin 4.1 Albumin/Globulin Ratio Lipase 79 Urine Color Yellow Urine Clarity Sl. Cloudy Urine pH 6.0 Ur Specific [place] 1.015 Urine Protein 30 H Urine Glucose (UA) Normal Urine Ketones 50 H Urine Occult Blood 50 H Urine Nitrite Negative Urine Bilirubin Negative Urine Urobilinogen Normal Ur Leukocyte Esterase 25 H Urine RBC 5-10 SEEN Urine WBC 0-5 SEEN Ur Squamous Epith Cells 0-5 SEEN Urine Bacteria 2+ Urine Mucus 0 SEEN 10/30/18 10/31/18 10/31/18 21:35 02:06 02:06 WBC 21.3 H RBC 4.23 Hgb 13.2 Hct 39.7 MCV 93.9 MCH 31.2 MCHC 33.2 RDW 13.2 RDW Differential 45.2 H Plt Count 340 MPV 8.6 Immature Gran % (Auto) 0.200 Neut % (Auto) 87.5 H Lymph % (Auto) 4.6 L [place] % (Auto) 7.6 Eos % (Auto) 0.0 Baso % (Auto) 0.1 Absolute Neuts (auto) 18.6 H Absolute Lymphs (auto) 0.97 Total Counted Not Reportable Diff Path Review December foll Sodium 136 Potassium 3.6 Chloride 104 Carbon Dioxide 24.0 Anion Gap 8 BUN 4 L Creatinine 0.47 L Estim Creat Clear Calc 106.39 Est GFR (MDRD) Af Amer 171 Est GFR (MDRD) Non-Af 141 BUN/Creatinine Ratio 8.4 L Glucose 122 H Lactic Acid 2.3 H Calcium 7.9 L Phosphorus 1.7 L Magnesium 1.3 L Total Bilirubin 0.40 Direct Bilirubin AST 20 ALT 20 Alkaline Phosphatase 69 Total Protein 6.0 L Albumin 2.5 L Globulin 3.5 Albumin/Globulin Ratio 0.7 L Lipase Urine Color Urine Clarity Urine pH Ur Specific [place] Urine Protein Urine Glucose (UA) Urine Ketones Urine Occult Blood Urine Nitrite Urine Bilirubin Urine Urobilinogen Ur Leukocyte Esterase Urine RBC Urine WBC Ur Squamous Epith Cells Urine Bacteria Urine Mucus 10/31/18 02:06 WBC RBC Hgb Hct MCV MCH MCHC RDW RDW Differential Plt Count MPV Immature Gran % (Auto) Neut % (Auto) Lymph % (Auto) [place] % (Auto) Eos % (Auto) Baso % (Auto) Absolute Neuts (auto) Absolute Lymphs (auto) Total Counted Diff Path Review Sodium Potassium Chloride Carbon Dioxide Anion Gap BUN Creatinine Estim Creat Clear Calc Est GFR (MDRD) Af Amer Est GFR (MDRD) Non-Af BUN/Creatinine Ratio Glucose Lactic Acid 2.5 H Calcium Phosphorus Magnesium Total Bilirubin Direct Bilirubin AST ALT Alkaline Phosphatase Total Protein Albumin Globulin Albumin/Globulin Ratio Lipase Urine Color Urine Clarity Urine pH Ur Specific [place] Urine Protein Urine Glucose (UA) Urine Ketones Urine Occult Blood Urine Nitrite Urine Bilirubin Urine Urobilinogen Ur Leukocyte Esterase Urine RBC Urine WBC Ur Squamous Epith Cells Urine Bacteria Urine Mucus Clinical Impression(s) from Imaging Studies Abdomen/Pelvis CT 10/30/18 16:23 IMPRESSION: 1. New intrahepatic and extrahepatic bile duct dilation suggesting distal biliary obstruction. MRCP or ERCP is suggested with correlation to the appropriate laboratory values. 2. Striated appearance of the kidneys suggesting contrast retention/ATN. Correlation with laboratory values/serum creatinine suggested. 3. 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 4. Additional changes, as above. Electronically Signed: Paul Grace MD at 19:23 EDT , Service support , Gallbladder Ultrasound 10/30/18 20:48 IMPRESSION: Probable right hepatic hemangioma. Complex septated left hepatic cystic nodule. Multiple nonobstructive right renal stones. Moderately distended gallbladder with sludge. Dilated common bile duct. Borderline pancreatic ductal prominence. Electronically Signed: Daniel Cordova DO at 22:37 EDT Tel [phone], Service support , Medical Necessity - Tobacco Use Smoking Status: Former smoker Assessment/Plan All Active Problems Common bile duct dilation (Acute) Gastric ulcer (Acute) 63-year-old female with abdominal pain and leukocytosis 1. I asked Dr. No to see the patient as well for a second opinion. The patient remains tachycardic and her white count has increased despite the Zosyn. She is still having diarrhea and her abdominal pain is not worsened. I did order an ultrasound of the gallbladder which showed normal gallbladder thickness with sludge. Her LFTs continue to be normal. 2. At this time the leading diagnosis is C. difficile colitis. The patient did have an EGD by Dr. No in the past which showed pyloric stenosis. I will place an NG tube for decompression of the stomach. Stool studies have been ordered and I will start her on oral vancomycin and stop the Zosyn. Continue observation and IV fluids as well as rechecking labs in the morning. Patient has hypo-magnesium and this will be replaced. Shailesh Santos MD Pager: [facility] [address] [place] [address], [address] [place] [address] Office:
--- NOTE | 2018-10-31 08:47 | PN.SURG_ITS ---
Patient Problems: Active and Suspected Problems Common bile duct dilation (Acute) Subjective: Patient reports that she did have one diarrhea bowel movement yesterday evening. She is still complaining of mild left lower quadrant and epigastric pain. She still has nausea but no vomiting. - Physical Exam General: Alert, Oriented x3, Cooperative, No apparent distress HEENT: Atraumatic Neck: No JVD Lungs: Normal air movement Cardiovascular: Regular Rhythm, Tachycardic Abdomen: Soft, Non-Distended, Tender - Tender in the left lower quadrant and epigastric area with no rebound or guarding Extremities: No clubbing Skin: No breakdown Musculoskeletal: No Muscle Wasting Neurological: Cranial nerves II-XII grossly intact Psych/Mental Status: Normal Affect Vital Signs Temp Pulse Resp BP Pulse Ox 97.8 F 115 H 18 150/91 H 94 10/31/18 04:42 10/31/18 07:09 10/31/18 04:42 10/31/18 04:42 10/31/18 04:42 Oxygen Delivery Method Room Air Weight: 119 lb 11.376 oz Body Mass Index (BMI) 24.1 Intake and Output for Last 24 Hours 10/29/18 10/30/18 10/31/18 23:59 23:59 23:59 Intake Total 2118.3 / 2118.3 Output Total 100 / 100 Balance 2017.3 / 2017.3 Laboratory Tests Past 24 Hrs 10/30/18 10/30/18 10/30/18 16:50 17:00 17:00 WBC 17.1 H RBC 4.68 Hgb 14.5 Hct 43.9 MCV 93.8 MCH 31.0 MCHC 33.0 RDW 13.1 RDW Differential 44.3 H Plt Count 459 H MPV 9.0 Immature Gran % (Auto) 0.200 Neut % (Auto) 86.5 H Lymph % (Auto) 7.2 L Elmore % (Auto) 5.9 Eos % (Auto) 0.1 Baso % (Auto) 0.1 Absolute Neuts (auto) 14.8 H Absolute Lymphs (auto) 1.24 Total Counted Not Reportable Diff Path Review Sodium 138 Potassium 2.7 L* Chloride 97 L Carbon Dioxide 29.0 Anion Gap 12 BUN 5 L Creatinine 0.74 Estim Creat Clear Calc 66.60 Est GFR (MDRD) Af Amer 102 Est GFR (MDRD) Non-Af 85 BUN/Creatinine Ratio 6.8 L Glucose 160 H Lactic Acid Calcium 9.6 Phosphorus Magnesium Total Bilirubin 0.70 Direct Bilirubin 0.22 AST 19 ALT 26 Alkaline Phosphatase 86 Total Protein 7.2 Albumin 3.1 L Globulin 4.1 Albumin/Globulin Ratio Lipase 79 Urine Color Yellow Urine Clarity Sl. Cloudy Urine pH 6.0 Ur Specific Parker 1.015 Urine Protein 30 H Urine Glucose (UA) Normal Urine Ketones 50 H Urine Occult Blood 50 H Urine Nitrite Negative Urine Bilirubin Negative Urine Urobilinogen Normal Ur Leukocyte Esterase 25 H Urine RBC 5-10 SEEN Urine WBC 0-5 SEEN Ur Squamous Epith Cells 0-5 SEEN Urine Bacteria 2+ Urine Mucus 0 SEEN 10/30/18 10/31/18 10/31/18 21:35 02:06 02:06 WBC 21.3 H RBC 4.23 Hgb 13.2 Hct 39.7 MCV 93.9 MCH 31.2 MCHC 33.2 RDW 13.2 RDW Differential 45.2 H Plt Count 340 MPV 8.6 Immature Gran % (Auto) 0.200 Neut % (Auto) 87.5 H Lymph % (Auto) 4.6 L Elmore % (Auto) 7.6 Eos % (Auto) 0.0 Baso % (Auto) 0.1 Absolute Neuts (auto) 18.6 H Absolute Lymphs (auto) 0.97 Total Counted Not Reportable Diff Path Review December foll Sodium 136 Potassium 3.6 Chloride 104 Carbon Dioxide 24.0 Anion Gap 8 BUN 4 L Creatinine 0.47 L Estim Creat Clear Calc 106.39 Est GFR (MDRD) Af Amer 171 Est GFR (MDRD) Non-Af 141 BUN/Creatinine Ratio 8.4 L Glucose 122 H Lactic Acid 2.3 H Calcium 7.9 L Phosphorus 1.7 L Magnesium 1.3 L Total Bilirubin 0.40 Direct Bilirubin AST 20 ALT 20 Alkaline Phosphatase 69 Total Protein 6.0 L Albumin 2.5 L Globulin 3.5 Albumin/Globulin Ratio 0.7 L Lipase Urine Color Urine Clarity Urine pH Ur Specific Parker Urine Protein Urine Glucose (UA) Urine Ketones Urine Occult Blood Urine Nitrite Urine Bilirubin Urine Urobilinogen Ur Leukocyte Esterase Urine RBC Urine WBC Ur Squamous Epith Cells Urine Bacteria Urine Mucus 10/31/18 02:06 WBC RBC Hgb Hct MCV MCH MCHC RDW RDW Differential Plt Count MPV Immature Gran % (Auto) Neut % (Auto) Lymph % (Auto) Elmore % (Auto) Eos % (Auto) Baso % (Auto) Absolute Neuts (auto) Absolute Lymphs (auto) Total Counted Diff Path Review Sodium Potassium Chloride Carbon Dioxide Anion Gap BUN Creatinine Estim Creat Clear Calc Est GFR (MDRD) Af Amer Est GFR (MDRD) Non-Af BUN/Creatinine Ratio Glucose Lactic Acid 2.5 H Calcium Phosphorus Magnesium Total Bilirubin Direct Bilirubin AST ALT Alkaline Phosphatase Total Protein Albumin Globulin Albumin/Globulin Ratio Lipase Urine Color Urine Clarity Urine pH Ur Specific Parker Urine Protein Urine Glucose (UA) Urine Ketones Urine Occult Blood Urine Nitrite Urine Bilirubin Urine Urobilinogen Ur Leukocyte Esterase Urine RBC Urine WBC Ur Squamous Epith Cells Urine Bacteria Urine Mucus Clinical Impression(s) from Imaging Studies Abdomen/Pelvis CT 10/30/18 16:23 IMPRESSION: 1. New intrahepatic and extrahepatic bile duct dilation suggesting distal biliary obstruction. MRCP or ERCP is suggested with correlation to the appropriate laboratory values. 2. Striated appearance of the kidneys suggesting contrast retention/ATN. Correlation with laboratory values/serum creatinine suggested. 3. 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 4. Additional changes, as above. Electronically Signed: Paul Grace MD at 19:23 EDT , Service support , Gallbladder Ultrasound 10/30/18 20:48 IMPRESSION: Probable right hepatic hemangioma. Complex septated left hepatic cystic nodule. Multiple nonobstructive right renal stones. Moderately distended gallbladder with sludge. Dilated common bile duct. Borderline pancreatic ductal prominence. Electronically Signed: Daniel Cordova DO at 22:37 EDT Tel [phone], Service support , Medical Necessity - Tobacco Use Smoking Status: Former smoker Assessment/Plan All Active Problems Common bile duct dilation (Acute) Gastric ulcer (Acute) 63-year-old female with abdominal pain and leukocytosis 1. I asked Dr. No to see the patient as well for a second opinion. The patient remains tachycardic and her white count has increased despite the Zosyn. She is still having diarrhea and her abdominal pain is not worsened. I did order an ultrasound of the gallbladder which showed normal gallbladder thickness with sludge. Her LFTs continue to be normal. 2. At this time the leading diagnosis is C. difficile colitis. The patient did have an EGD by Dr. No in the past which showed pyloric stenosis. I will place an NG tube for decompression of the stomach. Stool studies have been ordered and I will start her on oral vancomycin and stop the Zosyn. Continue observation and IV fluids as well as rechecking labs in the morning. Patient has hypo-magnesium and this will be replaced. Shailesh Santos MD Pager: [facility] [address] [place] [address], [address] [place] [address] Office:
[2018-10-31] MEDS: Magnesium Sulfate 4gm/100mL 4 GM/100 ML IV.SOLN. IV (11:08)
--- NOTE | 2018-10-31 13:57 | CASEMGMT ---
This RN CM to room to complete assessment at this time and pt is sleeping without distress. Pt does not awaken to knock on door or verbal stimuli at this time. Will attempt again later. SStaten RN CM
[2018-10-31 14:19] LABS: Pathologist Review Reviewed
[2018-10-31 23:39] LABS: Absolute Lymphocyte Count 1.52 X10^3/ul (0.83-4.51); Absolute Neutrophil Count 10.4 X10^3/uL (2.0-7.7); Basophil# 0.02 X10^3/uL; Basophil% 0.2 % (0-1); Eosinophil# 0.06 X10^3/uL; Eosinophils% 0.5 % (0-5); Hemoglobin 10.6 g/dl (12.0-15.0); Lymphocyte # 1.52 X10^3/ul (4.0); Lymphocyte % 11.6 % (19-41); Mean Corp Hgb Conc 31.2 g/gl (32-36); Mean Corpuscular Hgb 30.3 pg (27.0-32.0); Mean Corpuscular Volume 97.1 fL (81-99); Mean Platelet Vol. 8.9 fl (6.2-12.0); Monocyte# 1.11 X10^3/uL; Monocyte% 8.5 % (0-10); Neutrophil # 10.39 X10^3/uL (2.7-7.7); Platelet Count 342 K/mm3 (150-450); RBC Distribution Width CV 13.6 % (11.6-14.6); RBC Distribution Width SD 45.7 fl (35.1-43.9); White Blood Count 13.1 K/mm3 (4.4-11.0)
[2018-10-31 23:40] LABS: POSITIVE COUNT NO; POSITIVE DIFFERENTIAL NO; POSITIVE MORPHOLOGY NO
[2018-10-31 23:42] LABS: ALB/GLOB Ratio 0.7 RATIO (0.9-2.4); AST(SGOT) 18 U/L (15-37); Alanine Aminotransfer ALT/SGPT 14 U/L (13-56); Albumin, Serum 2.1 g/dL (3.2-5.0); Alkaline Phosphatase 55 U/L (45-117); Anion Gap 6 (5-15); BUN 5 mg/dL (7-18); BUN/Creat Ratio 12.6 RATIO (10-20); Calcium,Total 7.5 mg/dL (8.5-10.1); Chloride 110 mmol/L (98-107); EST Glomerular Filtration Rate 173 mL/min (>60); Est Glom Filt Rate - Afr Amer 209 mL/min (>60); Glucose 84 mg/dL (74-106); Potassium 3.2 mmol/L (3.5-5.1); Protein, Total 5.1 g/dL (6.4-8.2); Sodium Level 138 mmol/L (136-145)
[2018-11-01] VITALS (9 sets, daily range): BP systolic 143–157; BP diastolic 78–109; PULSE 70–105; RESP 14–18; TEMP 36.8–37.2; O2SAT 95–100
[2018-11-01] MEDS: Morphine 2 MG/ML Syringe IV ×6 (02:56→21:41)
[2018-11-01] MEDS: 0.9% Normal Saline 1,000 ML 150 ML IV ×3 (04:54→21:20)
[2018-11-01 06:11] LABS: Absolute Neutrophil Count 10.1 X10^3/uL (2.0-7.7); Basophil# 0.02 X10^3/uL; Basophil% 0.2 % (0-1); Eosinophil# 0.07 X10^3/uL; Eosinophils% 0.6 % (0-5); Hematocrit 33.7 % (37-47); Hemoglobin 10.5 g/dl (12.0-15.0); Lymphocyte % 10.4 % (19-41); Mean Corp Hgb Conc 31.2 g/gl (32-36); Mean Corpuscular Hgb 30.3 pg (27.0-32.0); Mean Corpuscular Volume 97.1 fL (81-99); Monocyte# 0.99 X10^3/uL; Monocyte% 7.9 % (0-10); Neutrophil % 80.7 % (47-70); Platelet Count 358 K/mm3 (150-450); RBC Distribution Width CV 13.6 % (11.6-14.6); RBC Distribution Width SD 46.5 fl (35.1-43.9); Red Blood Count 3.47 M/mm3 (4.2-5.4); White Blood Count 12.5 K/mm3 (4.4-11.0)
[2018-11-01 06:19] LABS: POSITIVE COUNT NO; POSITIVE DIFFERENTIAL NO; POSITIVE MORPHOLOGY NO
[2018-11-01 06:26] LABS: ALB/GLOB Ratio 0.6 RATIO (0.9-2.4); AST(SGOT) 18 U/L (15-37); Alanine Aminotransfer ALT/SGPT 16 U/L (13-56); Alkaline Phosphatase 59 U/L (45-117); Anion Gap 8 (5-15); BUN 5 mg/dL (7-18); BUN/Creat Ratio 11.4 RATIO (10-20); Calcium,Total 7.7 mg/dL (8.5-10.1); Chloride 112 mmol/L (98-107); Creatinine, Serum 0.44 mg/dL (0.55-1.02); EST Glomerular Filtration Rate 154 mL/min (>60); Est Glom Filt Rate - Afr Amer 186 mL/min (>60); Estimated Creatinine Clearance 113.64 ml/min; Globulin 3.1 g/dL (2.2-4.2); Glucose 75 mg/dL (74-106); Phosphorus 1.4 mg/dL (2.5-4.9); Potassium 3.2 mmol/L (3.5-5.1); Protein, Total 5.1 g/dL (6.4-8.2); Sodium Level 143 mmol/L (136-145)
[2018-11-01] MEDS: 0.9% NaCl Peripheral Flush Adult/Peds IV (07:39)
[2018-11-01] MEDS: Estradiol 1 MG Tablet PO (11:26)
--- NOTE | 2018-11-01 12:15 | CASEMGMT ---
RUBA MONTERO assessment: Face to Face with patient for initial transition planning/care coordination assessment. RUBA MONTERO introduced self and role at [facility], pt voices understanding and consents to assessment at this time. Pt is sitting up in bed in no distress at this time. Pt is A/OX4 at this time and answers all questions appropriately at this time. Care providers, pharmacy, and demographics verified at this time. PCP: Tori Specialists: rosetta No Preferred Pharmacy: [facility] Insurance: [employer] Prescription Benefit: [employer] Living Will/HPOA: Pt states that she does not currently have LW/HPOA but states would like to complete at this time. Jammie SW aware, voices understanding. LNOK: Markos Issa, sister; Taty Phillips, daughter Living Arrangements: Pt states lives with friend in mobile home with 3 steps into home and states no concerns at home at this time. Pt states is normally independent with ADL's. Transportation: Pt states drives self and states no transportation concerns at this time. DME/HHC: Pt states no current DME or need for any at this time. Pt states no hx of HHC or SNF in the past. Pt states no concerns with going home at time of discharge. 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 Pt states does not smoke but does drink ETOH occasionally. Pt states no further concerns/needs at this time. CM to follow for any further discharge planning/needs. Advised pt to ask for CM if any further questions/concerns/needs arise, voices understanding. Pt's CM thru [facility], for any discharge planning/needs is [phone]. Plan: Home SStaten RUBA MONTERO
--- NOTE | 2018-11-01 12:43 | PN.SURG_ITS ---
Patient Problems: Active and Suspected Problems Common bile duct dilation (Acute) Subjective: Patient still complaining of diarrhea and left lower quadrant pain. Epigastric pain is resolved. - Physical Exam General: Alert, Oriented x3 HEENT: PERRLA Neck: Supple Lungs: Normal air movement Cardiovascular: Regular rate, Regular Rhythm Abdomen: Soft, Non-Distended, Tender - Tender in left lower quadrant. No guarding or rebound. Abdomen is soft otherwise Skin: No rashes Musculoskeletal: No Muscle Wasting Vital Signs Temp Pulse Resp BP Pulse Ox 98.2 F 100 18 157/85 H 95 11/01/18 09:00 11/01/18 09:00 11/01/18 09:00 11/01/18 09:00 11/01/18 09:00 Oxygen Delivery Method Room Air Weight: 119 lb 11.376 oz Body Mass Index (BMI) 24.1 Intake and Output for Last 24 Hours 10/30/18 10/31/18 11/01/18 23:59 23:59 23:59 Intake Total 5129.3 / 5129.3 2038 / 2038 Output Total 1950 / 1950 1600 / 1600 Balance 3179.3 / 3179.3 438 / 438 Microbiology Past 72 Hours 10/31/18 08:00 Enteric Bacteriology - Final Stool 10/31/18 08:00 C. difficile DNA Amplification - Final Stool 10/31/18 08:00 Stool Lactoferrin - Final Stool 10/31/18 08:00 Stool Occult Blood (EMERY) - Final Stool Occult Blood Positive Laboratory Tests Past 24 Hrs 10/31/18 10/31/18 10/31/18 02:06 23:15 23:15 WBC 13.1 H RBC 3.50 L Hgb 10.6 L Hct 34.0 L MCV 97.1 MCH 30.3 MCHC 31.2 L RDW 13.6 RDW Differential 45.7 H Plt Count 342 MPV 8.9 Immature Gran % (Auto) 0.200 Neut % (Auto) 79.0 H Lymph % (Auto) 11.6 L Spalding % (Auto) 8.5 Eos % (Auto) 0.5 Baso % (Auto) 0.2 Absolute Neuts (auto) 10.4 H Absolute Lymphs (auto) 1.52 Total Counted Not Reportable Diff Path Review Reviewed Sodium 138 Potassium 3.2 L Chloride 110 H Carbon Dioxide 22.0 Anion Gap 6 BUN 5 L Creatinine 0.40 L Estim Creat Clear Calc 125.00 Est GFR (MDRD) Af Amer 209 Est GFR (MDRD) Non-Af 173 BUN/Creatinine Ratio 12.6 Glucose 84 Calcium 7.5 L Phosphorus Magnesium Total Bilirubin 0.40 AST 18 ALT 14 Alkaline Phosphatase 55 Total Protein 5.1 L Albumin 2.1 L Globulin 3.0 Albumin/Globulin Ratio 0.7 L 11/01/18 11/01/18 05:30 05:30 WBC 12.5 H RBC 3.47 L Hgb 10.5 L Hct 33.7 L MCV 97.1 MCH 30.3 MCHC 31.2 L RDW 13.6 RDW Differential 46.5 H Plt Count 358 MPV 9.0 Immature Gran % (Auto) 0.200 Neut % (Auto) 80.7 H Lymph % (Auto) 10.4 L Spalding % (Auto) 7.9 Eos % (Auto) 0.6 Baso % (Auto) 0.2 Absolute Neuts (auto) 10.1 H Absolute Lymphs (auto) 1.30 Total Counted Not Reportable Diff Path Review Sodium 143 Potassium 3.2 L Chloride 112 H Carbon Dioxide 23.0 Anion Gap 8 BUN 5 L Creatinine 0.44 L Estim Creat Clear Calc 113.64 Est GFR (MDRD) Af Amer 186 Est GFR (MDRD) Non-Af 154 BUN/Creatinine Ratio 11.4 Glucose 75 Calcium 7.7 L Phosphorus 1.4 L Magnesium 2.0 Total Bilirubin 0.40 AST 18 ALT 16 Alkaline Phosphatase 59 Total Protein 5.1 L Albumin 2.0 L Globulin 3.1 Albumin/Globulin Ratio 0.6 L Clinical Impression(s) from Imaging Studies Abdomen/Pelvis CT 10/30/18 16:23 IMPRESSION: 1. New intrahepatic and extrahepatic bile duct dilation suggesting distal biliary obstruction. MRCP or ERCP is suggested with correlation to the appropriate laboratory values. 2. Striated appearance of the kidneys suggesting contrast retention/ATN. Correlation with laboratory values/serum creatinine suggested. 3. 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 4. Additional changes, as above. Electronically Signed: Paul Grace MD at 19:23 EDT , Service support , Gallbladder Ultrasound 10/30/18 20:48 IMPRESSION: Probable right hepatic hemangioma. Complex septated left hepatic cystic nodule. Multiple nonobstructive right renal stones. Moderately distended gallbladder with sludge. Dilated common bile duct. Borderline pancreatic ductal prominence. Electronically Signed: Daniel Cordova DO at 22:37 EDT Tel [phone], Service support , KUB X-Ray 10/31/18 07:50 IMPRESSION: The tip of the nasogastric tube is in the fundal portion of the stomach. Nonspecific bowel gas pattern. Electronically Signed: Fredy Lucero, at 14:17 EDT , Service support , Medical Necessity - Tobacco Use Smoking Status: Former smoker Assessment/Plan All Active Problems Common bile duct dilation (Acute) Gastric ulcer (Acute) 63-year-old female with left lower quadrant pain and diarrhea 1. Patient's white count has improved. C. difficile was negative. I stopped vancomycin and resume to Zosyn. White count is mildly elevated today. She is still having left lower quadrant pain and watery diarrhea. All his stool studies were negative as well. 2. I will remove her NG and start clear liquids and order fleets enema for the morning. I will take her in the morning for EGD and colonoscopy. I discussed this in detail with her. I will take random biopsies of the colon to check for microscopic colitis. I also discussed with the patient that I would be checking her pylorus and if necessary performing balloon dilation for stenosis. 3. I explained endoscopy in detail to the patient. I explained the risks including but not limited to stroke or heart attack with anesthesia, perforation of the GI tract, bleeding, infection. I explained that any of these could necessitate further emergency surgery. The patient understands and all questions were answered sufficiently. The patient wishes to proceed with procedure. Shailesh Santos MD Pager: [facility] [address] [place] [address], [address] [place] [address] Office:
[2018-11-01] MEDS: Carvedilol 3.125 MG TABLET PO ×2 (14:22→21:22)
--- NOTE | 2018-11-01 16:41 | CASEMGMT ---
Advanced Directives. This social science teacher meeting with patient in room to complete a Health Care Power of Corporate Fitness Program Coordinator as well as Living Will. Original provided to patient and copy placed on patient chart. Jackson ISLAS, ANT
[2018-11-01] MEDS: ALPRAZolam 0.25 MG Tablet 0.125 MG PO (20:01)
[2018-11-02] VITALS (16 sets, daily range): BP systolic 121–169; BP diastolic 73–85; PULSE 78–98; RESP 16–18; TEMP 36.5–37.1; O2SAT 97–100; BMI 24.1
[2018-11-02] MEDS: Morphine 2 MG/ML Syringe IV (01:48)
[2018-11-02] MEDS: 0.9% Normal Saline 1,000 ML 150 ML IV ×2 (04:03→10:30)
[2018-11-02 05:26] LABS: Absolute Lymphocyte Count 1.35 X10^3/ul (0.83-4.51); Absolute Neutrophil Count 5.6 X10^3/uL (2.0-7.7); Basophil# 0.03 X10^3/uL; Basophil% 0.4 % (0-1); Eosinophil# 0.09 X10^3/uL; Eosinophils% 1.1 % (0-5); Hemoglobin 9.4 g/dl (12.0-15.0); Lymphocyte # 1.35 X10^3/ul (4.0); Lymphocyte % 16.5 % (19-41); Mean Corp Hgb Conc 30.3 g/gl (32-36); Mean Corpuscular Hgb 29.6 pg (27.0-32.0); Mean Corpuscular Volume 97.5 fL (81-99); Mean Platelet Vol. 8.8 fl (6.2-12.0); Monocyte# 1.08 X10^3/uL; Monocyte% 13.2 % (0-10); Neutrophil % 68.7 % (47-70); Platelet Count 328 K/mm3 (150-450); RBC Distribution Width CV 13.8 % (11.6-14.6); RBC Distribution Width SD 47.2 fl (35.1-43.9); Red Blood Count 3.18 M/mm3 (4.2-5.4); White Blood Count 8.2 K/mm3 (4.4-11.0)
[2018-11-02 05:32] LABS: POSITIVE COUNT NO; POSITIVE DIFFERENTIAL NO; POSITIVE MORPHOLOGY NO
[2018-11-02 05:39] LABS: International Normalized Ratio 1.2; Prothrombin Time (Protime)PT. 14.7 SECONDS (11.7-14.9)
[2018-11-02 05:40] LABS: Partial Thromboplast Time 27.3 Seconds (24.1-36.2)
[2018-11-02 05:42] LABS: ALB/GLOB Ratio 0.7 RATIO (0.9-2.4); AST(SGOT) 20 U/L (15-37); Alanine Aminotransfer ALT/SGPT 19 U/L (13-56); Alkaline Phosphatase 62 U/L (45-117); Anion Gap 8 (5-15); BUN 4 mg/dL (7-18); BUN/Creat Ratio 7.6 RATIO (10-20); Calcium,Total 7.4 mg/dL (8.5-10.1); Chloride 113 mmol/L (98-107); Creatinine, Serum 0.53 mg/dL (0.55-1.02); EST Glomerular Filtration Rate 124 mL/min (>60); Est Glom Filt Rate - Afr Amer 150 mL/min (>60); Estimated Creatinine Clearance 94.34 ml/min; Globulin 2.9 g/dL (2.2-4.2); Glucose 101 mg/dL (74-106); Potassium 3.1 mmol/L (3.5-5.1); Protein, Total 4.9 g/dL (6.4-8.2); Sodium Level 144 mmol/L (136-145)
[2018-11-02] MEDS: Fleet Enema 1 ML RECTAL (07:48)
[2018-11-02] MEDS: Potassium Chloride 10mEq/100mL 10 MEQ/100 ML IV.SOLN. 100 MEQ IV BOLUS ×3 (08:30→13:43)
[2018-11-02] MEDS: DiphenhydrAMINE 25 MG Capsule PO (11:02)
--- NOTE | 2018-11-02 12:00 | IMM_PTH ---
PATIENT: BRITTANY MANDUJANO LOC: PCU U#:[id number] AGE/SX: 63/F ROOM: [facility] RE10/30/[address]: Dr. Shailesh Santos MD : 1955 BED: 1 DIS: 11/02/2018 SPEC #: [id number] RECD: 11/02/18 15:10 STATUS: SOUJennifer REQ #: [id number] JOSESITO: 11/02/18 12:[address]: Shailesh Santos DEPT: IMMUNOHISTOCHEMISTRY RECD BY: Kelly Mandujano ENTERED: 11/02/18 15:11 SP TYPE: IMMUNO OTHR DR: Dr. Suha Valle MD Tissues: A - Stomach, NOS Procedures: H Pylori (initial) PHYSICIAN & INSTITUTION [place] [id number] SPECIMEN INFORMATION: Tissue Source: A - Antral biopsy Clinical Info: Abdominal pain, diarrhea Specimen Number: [id number] CPT code: 06798 METHODOLOGY: Deparaffinized sections of prefer/formalin-fixed tissue or PAP/DQ stained slides are incubated with monoclonal/polyclonal antibodies/oligonucleotide probes. Localization is made via biotin free immunoperoxidase method. Appropriate controls are performed and reacted as expected. Results on target cell population are indicated in the following table: RESULTS: ANTIBODY / CLONE RESULT Block A H Pylori (polyclonal) negative These tests were developed and their performance characteristics determined by [facility]. They may not have been cleared or approved by the U.S. Food and Drug Administration. The FDA has determined that such clearance or approval is not necessary. INTERPRETATION: A. Antral biopsy: Negative for Helicobacter pylori organisms. AM:jimbo 11/05/18
--- NOTE | 2018-11-02 12:00 | EGD_PTH ---
PATIENT: BRITTANY MANDUJANO LOC: PCU U#:[id number] AGE/SX: 63/F ROOM: [facility] RE10/30/[address]: Dr. Shailesh Santos MD : 1955 BED: 1 DIS: 11/02/2018 SPEC #: [id number] RECD: 11/02/18 13:29 STATUS: MAYNOR REEze #: [id number] JOSESITO: 11/02/18 12:[address]: Shailesh Santos DEPT: SURGICAL PATHOLOGY RECD BY: Jayden Nj ENTERED: 11/02/18 14:04 SP TYPE: EGD BIOPSY OT DR: Dr. Suha Valle MD Tissues: A - Gastric mucous membrane B - COLON BIOPSY Procedures: Surgery Specimen Level IV HEADER OPERATION: Colonoscopy, EGD ([facility]) PRE-OP DIAGNOSIS: Abdominal pain, diarrhea TISSUE SUBMITTED: A - Antral biopsy for H. pylori and pathology, B - Random colon biopsies MICROSCOPIC DIAGNOSIS A. Gastric antrum, biopsy: Mild chronic gastritis. B. Colon, random biopsy: Mild melanosis coli. AM:jimbo 11/05/18 COMMENT A. The results of immunohistochemistry for Helicobacter pylori will be reported separately ([id number]). MICROSCOPIC DESCRIPTION Slides are reviewed. GROSS DESCRIPTION A - Received in fixative is one container labeled with the patient's name and designated antral biopsy. The specimen consists of two irregular fragments of light marcial soft tissue that in aggregate measure 0.4 x 0.3 x 0.1 cm. The specimen is totally submitted in one cassette. B - Received in fixative is one container labeled with the patient's name and designated random colon biopsy. The specimen consists of multiple irregular fragments of light marcial soft tissue that in aggregate measure 1.5 x 0.8 x 0.1 cm. The specimen is totally submitted in one cassette. / SJ:jimbo 11/02/18 TC:3 CPT: 37660 x2
--- NOTE | 2018-11-02 12:30 | OP.ENDO_ITS ---
11/02/2018 Suha Valle [address] [place] [address] Re : Upper GI endoscopy procedure for Dee Esvin Dear Dr. Valle This procedure was performed on Friday, November 02, 2018. My impressions and recommendations are as follows: Impressions : - Acquired duodenal stenosis. - Normal stomach. - Normal esophagus. - Biopsies were taken with a cold forceps for Helicobacter pylori testing. Recommendations : - [facility] to [facility]. - Resume previous diet. - Refer to a supervisor cutting department at appointment to be scheduled. - Continue present medications. My findings are described in the full procedure note, which is enclosed. If I can be of further assistance, please feel free to contact me at Doctor phone number(s): , Work: . Sincerely, Shailesh Santos MD 11/02/2018 12:30:10 PM This report has been signed electronically.
--- NOTE | 2018-11-02 12:32 | OP.ENDO_ITS ---
11/02/2018 Suha Valle [address] [place] [address] Re : Colonoscopy procedure for Dee Mcallister Dear Dr. Valle This procedure was performed on Friday, November 02, 2018. My impressions and recommendations are as follows: Impressions : - The entire examined colon is normal on direct and retroflexion views. - Biopsies were taken with a cold forceps from the entire colon for evaluation of microscopic colitis. Recommendations : - Discharge patient to home. - Resume previous diet. - Continue present medications. - Refer to a awning craftsman at appointment to be scheduled. - Repeat colonoscopy in 5 years for screening purposes. My findings are described in the full procedure note, which is enclosed. If I can be of further assistance, please feel free to contact me at Doctor phone number(s): , Work: . Sincerely, Shailesh Santos MD 11/02/2018 12:32:22 PM This report has been signed electronically.
--- NOTE | 2018-11-02 12:33 | PCM.WORK.EX ---
Work/School Excuse Work/School Excuse for:: Patient Please excuse this person from:: Work From: 10/30/18 through: 12/03/18
--- NOTE | 2018-11-02 12:35 | DCINST_ITS ---
- Discharge Diagnoses Current Active Problems: Current Active and Chronic Problems Common bile duct dilation (Acute) You will use the following diet at home:: Regular Your food should be the consistency of: Regular Discharge Activity: No Restrictions Call your doctor if you observe: Fever of 101 or Higher Allergies/Adverse Reactions: Allergies No Known Allergies Allergy (Verified 10/30/18 15:45) Medications to take at Discharge Carvedilol 3.125 tab PO BID 10/21/18 ALPRAZolam [Xanax] 0.25 mg PO QHS PRN PRN 10/30/18 Estradiol 0.5 mg PO DAILY 10/30/18 Gabapentin [Neurontin] 300 mg PO TIDCM 10/30/18 Hydrocodone/Acetaminophen [Marcola 10-325 Tablet] 1 each PO Q6H PRN PRN 10/30/18 Lidocaine [Lidoderm] 1 each TP BID PRN PRN 10/30/18 Loxapine Succinate [Loxapine] 5 mg PO BID 10/30/18 Metronidazole [Flagyl] 500 mg PO TID 10/30/18 Omeprazole 40 mg PO DAILY PRN PRN 10/30/18 Oxycodone HCl/Acetaminophen [Percocet 5-325 mg Tablet] 1 each PO Q4H PRN PRN 10/30/18 levoFLOXacin tablet [Levaquin tablet] 750 mg PO DAILY 10/30/18 Metaxalone [Skelaxin] 800 mg PO BID PRN PRN 10/31/18 Primary Care Physician: Suha Valle MD [Primary Care Provider] - Test Results: Test results from this visit will be discussed in further detail at your follow- up appointment, if applicable. Please Follow Up With: naval special warfare medic When: Obtain referral for [facility] naval special warfare medic from PCP for diarrea and duodena
--- NOTE | 2018-11-02 12:36 | PCM.DC.SUM ---
Discharge Date and Diagnosis - Problem List Patient Problems: Active and Suspected Problems Common bile duct dilation (Acute) Date of Admission: 10/30/18 Date of Discharge: 11/02/18 - Primary Discharge Diagnosis Active and Suspected Problems Common bile duct dilation (Acute) Hospital Course and Treatment Imaging Results: Clinical Impression(s) from Imaging Studies Abdomen/Pelvis CT 10/30/18 16:23 IMPRESSION: 1. New intrahepatic and extrahepatic bile duct dilation suggesting distal biliary obstruction. MRCP or ERCP is suggested with correlation to the appropriate laboratory values. 2. Striated appearance of the kidneys suggesting contrast retention/ATN. Correlation with laboratory values/serum creatinine suggested. 3. 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 4. Additional changes, as above. Electronically Signed: Paul Grace MD at 19:23 EDT , Service support , Gallbladder Ultrasound 10/30/18 20:48 IMPRESSION: Probable right hepatic hemangioma. Complex septated left hepatic cystic nodule. Multiple nonobstructive right renal stones. Moderately distended gallbladder with sludge. Dilated common bile duct. Borderline pancreatic ductal prominence. Electronically Signed: Daniel Cordova DO at 22:37 EDT Tel [phone], Service support , KUB X-Ray 10/31/18 07:50 IMPRESSION: The tip of the nasogastric tube is in the fundal portion of the stomach. Nonspecific bowel gas pattern. Electronically Signed: Fredy Barker, at 14:17 EDT , Service support , Operations: None Procedures: Colonoscopy, EGD Summary of Care Provided: The patient is a 63 year old F who presented with left lower quadrant pain and diarrhea. She had a CT done which showed dilated common bile duct but her LFTs were negative. She was admitted for observation and her LFTs continue to remain negative. C. difficile as well as enteric studies were checked and were all normal. On CT her colon appeared normal as well. NG was placed for decompression of the stomach but had minimal output afterwards and it was removed and she was started on a clear liquid diet. She was then taken for colonoscopy and EGD. 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 She will need catalytic converter operator for dilation of this. On colonoscopy the colon appeared normal and random biopsies were taken. There were no thickening suggestive of colitis. I was able to traverse the ileocolic anastomosis and look at the small bowel as well. At this point I am unsure why she is having diarrhea and why she had an elevated white count. She has had CT, enteric studies, EGD and colonoscopy, biopsies of the colon. The patient needs to be referred to a catalytic converter operator. I will discharge the patient home and have her follow-up with her PCP. Her white count is normal today. Patient Problems: Active and Suspected Problems Common bile duct dilation (Acute) - Physical Exam Vital Signs Temp Pulse Resp BP Pulse Ox 98.7 F 95 16 152/79 H 98 11/02/18 10:19 11/02/18 10:41 11/02/18 10:19 11/02/18 10:19 11/02/18 10:19 Oxygen Delivery Method Room Air Weight: 119 lb 11.376 oz Body Mass Index (BMI) 24.1 Intake and Output for Last 24 Hours 10/31/18 11/01/18 11/02/18 23:59 23:59 23:59 Intake Total 5129.3 / 5129.3 4652 / 4652 969 / 969 Output Total 1950 / 1950 3000 / 3000 400 / 400 Balance 3179.3 / 3179.3 1652 / 1652 569 / 569 Microbiology Past 72 Hours 10/31/18 08:00 Enteric Bacteriology - Final Stool 10/31/18 08:00 C. difficile DNA Amplification - Final Stool 10/31/18 08:00 Stool Lactoferrin - Final Stool 10/31/18 08:00 Stool Occult Blood (EMERY) - Final Stool Occult Blood Positive Laboratory Tests Past 24 Hrs 11/02/18 11/02/18 11/02/18 05:05 05:05 05:05 WBC 8.2 RBC 3.18 L Hgb 9.4 L Hct 31.0 L MCV 97.5 MCH 29.6 MCHC 30.3 L RDW 13.8 RDW Differential 47.2 H Plt Count 328 MPV 8.8 Immature Gran % (Auto) 0.100 Neut % (Auto) 68.7 Lymph % (Auto) 16.5 L Cole % (Auto) 13.2 H Eos % (Auto) 1.1 Baso % (Auto) 0.4 Absolute Neuts (auto) 5.6 Absolute Lymphs (auto) 1.35 Total Counted Not Reportable PT 14.7 INR 1.2 APTT 27.3 Sodium 144 Potassium 3.1 L Chloride 113 H Carbon Dioxide 23.0 Anion Gap 8 BUN 4 L Creatinine 0.53 L Estim Creat Clear Calc 94.34 Est GFR (MDRD) Af Amer 150 Est GFR (MDRD) Non-Af 124 BUN/Creatinine Ratio 7.6 L Glucose 101 Calcium 7.4 L Total Bilirubin 0.30 AST 20 ALT 19 Alkaline Phosphatase 62 Total Protein 4.9 L Albumin 2.0 L Globulin 2.9 Albumin/Globulin Ratio 0.7 L Discharge Activity: No Restrictions Call your doctor if you observe: Fever of 101 or Higher Home Medications: Medications to take at Discharge Carvedilol 3.125 tab PO BID 10/21/18 ALPRAZolam [Xanax] 0.25 mg PO QHS PRN PRN 10/30/18 Estradiol 0.5 mg PO DAILY 10/30/18 Gabapentin [Neurontin] 300 mg PO TIDCM 10/30/18 Hydrocodone/Acetaminophen [[place] 10-325 Tablet] 1 each PO Q6H PRN PRN 10/30/18 Lidocaine [Lidoderm] 1 each TP BID PRN PRN 10/30/18 Loxapine Succinate [Loxapine] 5 mg PO BID 10/30/18 Omeprazole 40 mg PO DAILY PRN PRN 10/30/18 Oxycodone HCl/Acetaminophen [Percocet 5-325 mg Tablet] 1 each PO Q4H PRN PRN 10/30/18 Metaxalone [Skelaxin] 800 mg PO BID PRN PRN 10/31/18 Primary Care Physician: Suha Valle MD [Primary Care Provider] - Please Follow Up With: catalytic converter operator When: Obtain referral for [facility] catalytic converter operator from PCP for diarrea and duodena Medical Necessity - Tobacco Use Smoking Status: Former smoker Meaningful Use Info Meaningful Use Diagnoses (Choose all that apply): None applicable
[2018-11-02] MEDS: Carvedilol 3.125 MG TABLET PO (13:43)
[2018-11-02] MEDS: Acetaminophen 325 MG Tablet 650 MG PO (13:48)
--- NOTE | 2018-11-06 14:00 | CASEMGMT ---
RUBA MONTERO Discharge Follow-Up Phone Call. Toyin: Laura Strata: 3 Discharge Date: 11/02/18 Adm Dx: Dilated CBD, Sepsis Call to pt to inquire about how she has been doing since being discharged from the hospital. Pt states, I'm tired, but I'm doing good. Pt states has been in to see Dr Valle this week and that her K+ is still low and that she was started on a K+ supplement. She states she has another appt with Dr Valle on 11/08 and also an appt Thursday 11/09 with gastro. Pt states she did develop a rash after being at the hospital and that Dr Valle started me on a medication for it. Pt reports that it is getting a little donor relations manager than it was. Advised pt to contact Dr Valle's office if rash worsens/spreads or develops hives, or to go to ER if has difficulty breathing. Pt voices understanding. Pt denies having any questions or concerns about discharge instructions or medications. RBUA MONTERO thanked pt for choosing [facility]. Damian MACDONALD RN, CM
== END 2018-11-02 16:15 | disposition home or self-care (01) | DRG 872 ==
LOC: ED 17:31 → PCU 21:54
PROVIDERS: Emergency Medicine; Admitting Provider Surgery; Emergency Provider Emergency Medicine; Family Provider Internal Medicine; PCP Internal Medicine; Referring Provider Surgery; Visit Provider Surgery
PROC: 0DJD8ZZ Inspection of Lower Intestinal Tract, Via Natural or Artificial Opening Endoscopic (ICD-10-PCS; CPT 45378; principal; 2018-11-02 11:55)
DX: A41.9 Sepsis, unspecified organism (principal); K83.8 Other specified diseases of biliary tract; E83.42 Hypomagnesemia; R19.7 Diarrhea, unspecified; E87.6 Hypokalemia; E86.0 Dehydration
CPT/HCPCS: 36415; 74018; 74177; 76705; 80048; 80053; 80076; 81001; 82274; 83605; 83630; 83690; 83735; 84100; 85025; 85610; 85730; 87493; 87506; 88305; 88342; 93005; 99283; J7030; J7040; Q9967; A4216; J2405